=== PATIENT | male | born 1950 | race Caucasian/White ===

== ENCOUNTER 2016-07-07 | Outpatient (CLI) | payer MEDICARE, OTHER | END 2016-07-07 19:05 | disposition short-term general hospital (02) | DX: R33.9 Retention of urine, unspecified (principal) | CPT/HCPCS: A0425; A0428 ==

== ENCOUNTER 2016-07-07 16:04 | Emergency (ER) | payer MEDICARE, OTHER ==
[2016-07-07] MEDS ORDERED: LIDOCAINE 2% URO-JET 5 ML SYRINGE UR ONE ×2 (17:08→17:20)
[2016-07-07] MEDS ORDERED: LIDOCAINE 2% URO-JET 5 ML SYRINGE UR STA (17:19)
== END 2016-07-07 19:03 | disposition short-term general hospital (02) ==
DX: R33.9 Retention of urine, unspecified (principal); C61 Malignant neoplasm of prostate; I10 Essential (primary) hypertension

== ENCOUNTER 2019-11-12 23:27 | Outpatient (CLI) | payer MEDICARE, OTHER | END 2019-11-12 23:59 | disposition critical access hospital (66) | LOC: EMS 23:27 | PROVIDERS: ATTEND Surgery | DX: R42 Dizziness and giddiness (principal); R03.1 Nonspecific low blood-pressure reading | CPT/HCPCS: A0425; A0427 ==

== ENCOUNTER 2020-01-17 18:44 | Inpatient (IN) | payer MEDICARE, OTHER ==
[2020-01-17] MEDS ORDERED: SODIUM CHLORIDE 0.9% 1,000 ML IV STA ×2 (19:12)
[2020-01-17] MEDS ORDERED: DILTIAZEM 50 MG/10 ML VIAL IVP STA (19:12)
[2020-01-17 19:24] LABS: BASOPHILS % (AUTO) 0.8 %; HGB - HEMOGLOBIN 10.3 g/dL (14.0-18.0); LYMPHOCYTES # (AUTO) 0.6 10^3/uL (1.5-3.5); LYMPHOCYTES % (AUTO) 17.1 %; MEAN CORPUSCULAR HEMOGLOBIN 30.5 pg (27.0-31.0); MEAN CORPUSCULAR VOLUME 95.3 fL (80.0-94.0); MEAN PLATELET VOLUME 10.9 fL (7.4-11.4); MONOCYTES # (AUTO) 0.3 10^3/uL (0.0-1.0); MONOCYTES % (AUTO) 6.8 %; NEUTROPHILS # (AUTO) 1.8 10^3/uL (1.5-6.6); PLT - PLATELET COUNT 140 10^3/uL (130-450); RED BLOOD COUNT 3.38 10^6/uL (4.70-6.10); RED CELL DISTRIBUTION WIDTH 15.9 % (12.0-15.0); WHITE BLOOD COUNT 3.7 x10^3/uL (4.8-10.8)
[2020-01-17 19:30] LABS: INR 1.5 (0.8-1.2); PT - PROTHROMBIN TIME 16.2 secs (9.9-12.6)
[2020-01-17 19:39] LABS: ALBUMIN/GLOBULIN RATIO 1.2 (1.0-2.2); BILIRUBIN,TOTAL 0.5 mg/dL (0.2-1.0); CALCIUM 8.2 mg/dL (8.5-10.3); CREATININE 1.6 mg/dL (0.6-1.2); TOTAL PROTEIN 5.5 g/dL (6.7-8.2)
[2020-01-17] MEDS ORDERED: DILTIAZEM 125 MG in DEXTROSE 5% 100 ML IV STA (19:44)
--- NOTE | 2020-01-17 19:51 | ED Physician Documentation ---
History of Present Illness - Stated complaint Stated Complaint: LOW HEART RATE - Chief complaint Chief Complaint: Neuro - History obtained from History obtained from: Patient, Family - History of Present Illness Timing: Today Pain level max: 0 Pain level now: 0 - Additonal information Additional information: 69-year-old male presents the emergency department complaining of low blood pressure at home today. Also felt his heartbeat was fast. He has been told he has an irregular heartbeat in the past. He is currently undergoing chemotherapy for metastatic prostate cancer. He gets regular saline infusions for dehydration. No chest pain. No difficulty breathing. He was hypoxic upon initial presentation. No cough. No fever. Nothing makes it better or worse. His oncology care is at [facility]. Dr. Cuevas Review of Systems Ten Systems: 10 systems reviewed and negative Constitutional: denies: Fever, Chills Ears: denies: Ear pain Nose: denies: Rhinorrhea / runny nose, Congestion Respiratory: denies: Cough GI: denies: Abdominal Pain, Nausea, Vomiting, Diarrhea Skin: denies: Rash Musculoskeletal: denies: Neck pain, Back pain Neurologic: denies: Focal weakness, Numbness, Headache PD PAST MEDICAL HISTORY - Past Medical History Past Medical History: Yes Cardiovascular: Hypertension Psych: Depression Musculoskeletal: Osteoarthritis Other Past Medical History: Prostate - Past Surgical History Past Surgical History: Yes - Present Medications Home Medications: Ambulatory Orders Medication Instructions Recorded Confirmed amLODIPine [Norvasc] 1 tab DAILY 07/07/16 11/13/19 buPROPion HCL [Bupropion HCl Sr] 1 tab BID 07/07/16 11/13/19 Alpha Lipoic Acid 1 tab DAILY 11/12/19 11/13/19 Aspirin [Adult Aspirin Regimen] 1 tab DAILY 11/12/19 11/13/19 B-Complex with Vitamin C [Super B 1 tab DAILY 11/12/19 11/13/19 Complex-Vitamin C] Cholecalciferol (Vitamin D3) 1 tab DAILY 11/12/19 11/13/19 [Vitamin D3] DULoxetine [Cymbalta] 1 tab BID 11/12/19 11/13/19 LORazepam [Ativan] 1 tab Q6HR PRN 11/12/19 11/13/19 Multivit-Min/FA/Lycopen/Lutein 1 tab DAILY 11/12/19 11/13/19 [Centrum Silver Men Tablet] Prednisone 1 tab PO DAILY 11/12/19 11/13/19 carvediloL [Coreg] 1 tab BID 11/12/19 11/13/19 dexAMETHasone [Dexamethasone] 2 tab BID 11/12/19 11/13/19 - Allergies Allergies/Adverse Reactions: Allergies Allergy/AdvReac Type Severity Reaction Status Date / Time Penicillins Allergy Rash Verified 01/17/20 18:59 oxycodone HCl * AdvReac Dizziness Verified 01/17/20 18:59 [From OxyContin] - Social History Does the pt smoke?: No Smoking Status: Never smoker PD ED PE NORMAL - Vitals Vital signs reviewed: Yes - General General: Alert and oriented X 3, No acute distress - HEENT HEENT: PERRL, Moist mucous membranes - Neck Neck: Supple, no meningeal sign - Cardiac Cardiac: Other (Tachycardic) - Respiratory Respiratory: No respiratory distress, Clear bilaterally - Abdomen Abdomen: Soft, Non tender, Non distended - Derm Derm: Warm and dry, No rash - Extremities Extremities: No calf tenderness / cord - Neuro Neuro: Alert and oriented X 3 Results - Vitals Vitals: Vital Signs - 24 hr 01/17/20 01/17/20 01/17/20 18:54 19:24 19:26 Temperature 36.2 C L Heart Rate 178 H 150 H Respiratory 20 13 Rate Blood Pressure 101/66 111/77 103/77 O2 Saturation 88 L 100 01/17/20 01/17/20 01/17/20 19:35 20:13 20:30 Temperature Heart Rate 152 H 153 H 165 H Respiratory 25 H 24 Rate Blood Pressure 113/76 123/86 H 112/86 H O2 Saturation 100 100 100 Oxygen O2 Source Nasal cannula - EKG (time done) 1845 Rate: Rate (enter#) (178) Rhythm: Atrial fibrillation (RVR) QRS: Normal Ischemia: Normal ST segments, Q waves (III, aVF) - Labs Labs: Laboratory Tests 01/17/20 01/17/20 01/17/20 19:15 19:15 19:15 WBC 3.7 L RBC 3.38 L Hgb 10.3 L Hct 32.2 L MCV 95.3 H MCH 30.5 MCHC 32.0 RDW 15.9 H Plt Count 140 MPV 10.9 Neut # (Auto) 1.8 Lymph # (Auto) 0.6 L [place] # (Auto) 0.3 Eos # (Auto) 0.0 Baso # (Auto) 0.0 Absolute Nucleated RBC 0.03 Band Neuts % (Manual) Not Reportable Abnorm Lymph % (Manual) Not Reportable Nucleated RBC % 0.8 Neutrophils # (Manual) Not Reportable Lymphocytes # (Manual) Not Reportable Monocytes # (Manual) Not Reportable Eosinophils # (Manual) Not Reportable Basophils # (Manual) Not Reportable Differential Comment MANUAL=AUTO DIFF Manual Slide Review Indicated WBC Morphology 2+AGRANULAR/HYPOGRAN Platelet Estimate NORMAL (130-450,000) Platelet Morphology NORMAL APPEARANCE RBC Morph Micro Appear 1+ HELMET CELLS PT 16.2 H INR 1.5 H Sodium 136 Potassium 4.1 Chloride 103 Carbon Dioxide 23 Anion Gap 10.0 BUN 21 H Creatinine 1.6 H Estimated GFR (MDRD) 43 L Glucose 108 H Calcium 8.2 L Total Bilirubin 0.5 AST 27 ALT 28 Alkaline Phosphatase 55 B-Natriuretic Peptide Total Protein 5.5 L Albumin 3.0 L Globulin 2.5 Albumin/Globulin Ratio 1.2 Lipase 21 L 01/16/20 19:15 WBC RBC Hgb Hct MCV MCH MCHC RDW Plt Count MPV Neut # (Auto) Lymph # (Auto) [place] # (Auto) Eos # (Auto) Baso # (Auto) Absolute Nucleated RBC Band Neuts % (Manual) Abnorm Lymph % (Manual) Nucleated RBC % Neutrophils # (Manual) Lymphocytes # (Manual) Monocytes # (Manual) Eosinophils # (Manual) Basophils # (Manual) Differential Comment Manual Slide Review WBC Morphology Platelet Estimate Platelet Morphology RBC Morph Micro Appear PT INR Sodium Potassium Chloride Carbon Dioxide Anion Gap BUN Creatinine Estimated GFR (MDRD) Glucose Calcium Total Bilirubin AST ALT Alkaline Phosphatase B-Natriuretic Peptide 662 H Total Protein Albumin Globulin Albumin/Globulin Ratio Lipase - Rads (name of study) Chest x-ray Radiology: Prelim report reviewed, EMP read contemporaneously, See rad report (Mild cardiomegaly is seen with prominence of the central pulmonary vasculature. ) PD MEDICAL DECISION MAKING - ED course Complexity details: reviewed results, re-evaluated patient, considered differential, d/w patient, d/w family ED course: Patient with atrial fibrillation with rapid ventricular response. He was given Cardizem which did decrease his rate, the rate then increased again, placed on a diltiazem drip. No chest pain. No shortness of breath. Does appear to have likely congestive heart failure on chest x-ray with pulmonary edema. BNP was sent. Records from [facility] were requested. Patient will need admission for acute renal failure, CHF with pulmonary edema and atrial fibrillation with rapid ventricular response on a diltiazem drip. Discussed the case with Dr. Anders, hospitalist who accepts. This document was made in part using voice recognition software. While efforts are made to proofread this document, sound alike and grammatical errors may occur. Departure - Departure Disposition: 66 [facility] DC/Xfer Clinical Impression: Atrial fibrillation with rapid ventricular response, Acute renal insufficiency, Prostate cancer metastatic to bone, Hypoxia Pulmonary edema Qualifiers: Chronicity: acute Qualified Code(s): J81.0 - Acute pulmonary edema Congestive heart failure Qualifiers: Heart failure type: unspecified Heart failure chronicity: unspecified Qualified Code(s): I50.9 - Heart failure, unspecified Condition: Stable
[2020-01-17] MEDS ORDERED: DILTIAZEM 50 MG/10 ML VIAL ONE (19:57)
--- NOTE | 2020-01-17 20:11 | XRAY Report ---
PROCEDURE: Chest 1 View X-Ray INDICATIONS: hypoxia TECHNIQUE: One view of the chest was acquired. COMPARISON: No previous study is available for comparison. FINDINGS: Surgical changes and devices: A right chest wall Port-A-Cath is seen with tip projecting over the sup erior vena cava.. Lungs and pleura: No pleural effusions or pneumothorax. There is mild prominence of the central pulm onary vasculature. No focal pulmonary consolidation is seen. Mediastinum: Mediastinal contours appear normal. Heart size mildly enlarged. Bones and chest wall: No suspicious bony lesions. Overlying soft tissues appear unremarkable. IMPRESSION: Mild cardiomegaly is seen with prominence of the central pulmonary vasculature. Reviewed by: Joseph Acevedo MD on 01/17/2020 8:10 PM PDT Approved by: Joseph Acevedo MD on 01/17/2020 8:10 PM PDT Station ID: [id number]
[2020-01-17] MEDS ORDERED: ACETAMINOPHEN 325 MG TABLET PO PRN (20:17)
--- NOTE | 2020-01-17 20:26 | HISTORY & PHYSICAL EXAMINATION ---
Chief Complaint - Chief Complaint Chief Complaint: weakness and dizziness History of Present Illness - Admitted From Admitted From:: [facility] ED - History Obtained From Records Reviewed: yes History obtained from: patient and ED physician - History of Present Illness HPI Comment/Other: Patient is a 69-year-old male with history of metastatic prostate cancer status post surgery and currently on chemotherapy with cabazitaxel at [facility]. His oncologist is Dr. Cuevas. He presented to the ED today with complaint of feeling weak and dizzy. He normally experiences the symptoms after chemotherapy however it has persisted and become worse over the past few days so he asked his to bring him to the emergency room. He is frequently dehydrated and often goes to [facility] for IV hydration. He was scheduled to see his oncologist tomorrow January 18, 2020. In the ED he was found to have an irregularly irregular rhythm with a heart rate in the 150s. He was initially given a dose of IV diltiazem which improved his heart rate but then slowly increased back to the 150s. As a result he was started on diltiazem drip and presented for admission. On further questioning at bedside he denies chest pain, dyspnea, abdominal pain, nausea or vomiting. He was also found to have a temperature of 39 C and white blood cell count of 3.7. He does not have any wounds. However his arms are extensively covered with bruises. He has mild crackles in the left lung bases. His chest x-ray showed cardiomegaly. He denied increased urinary frequency or pain with urination. His BNP was 662. History - Past Medical History Cardiovascular: reports: Hypertension, Peripheral Vascular Disease : reports: Renal insuffiency, Kidney stones Psych: reports: Depression Musculoskeletal: reports: Osteoarthritis MRSA Hx?: No Other Past Medical History: Metastatic Prostate cancer, Hx of melanoma, Basal cell carcinomaObesity, Gout - Past Surgical History General: reports: Other (Umbilical hernia repair) HEENT: reports: Other (Deviated septum repair) Other past surgical history: Prostate surgery - Family & Social History Family History Comment/Other: His father from prostate cancer and Alzheimer's. His brother from throat cancer Living arrangement: At home Living Situation: With spouse/s.o. Social History Notes: He denies using tobacco, alcohol or illicit substances - POLST Patient has POLST: No POLST Status: Full Code Meds/Allgy - Home Medications Home Medications: Ambulatory Orders Medication Instructions Recorded Confirmed amLODIPine [Norvasc] 1 tab DAILY 07/07/16 11/13/19 buPROPion HCL [Bupropion HCl Sr] 1 tab BID 07/07/16 11/13/19 Alpha Lipoic Acid 1 tab DAILY 11/12/19 11/13/19 Aspirin [Adult Aspirin Regimen] 1 tab DAILY 11/12/19 11/13/19 B-Complex with Vitamin C [Super B 1 tab DAILY 11/12/19 11/13/19 Complex-Vitamin C] Cholecalciferol (Vitamin D3) 1 tab DAILY 11/12/19 11/13/19 [Vitamin D3] DULoxetine [Cymbalta] 1 tab BID 11/12/19 11/13/19 LORazepam [Ativan] 1 tab Q6HR PRN 11/12/19 11/13/19 Multivit-Min/FA/Lycopen/Lutein 1 tab DAILY 11/12/19 11/13/19 [Centrum Silver Men Tablet] Prednisone 1 tab PO DAILY 11/12/19 11/13/19 carvediloL [Coreg] 1 tab BID 11/12/19 11/13/19 dexAMETHasone [Dexamethasone] 2 tab BID 11/12/19 11/13/19 - Allergies Allergies/Adverse Reactions: Allergies Allergy/AdvReac Type Severity Reaction Status Date / Time Penicillins Allergy Rash Verified 01/17/20 18:59 oxycodone HCl * AdvReac Dizziness Verified 01/17/20 18:59 [From OxyContin] Review of Systems - Constitutional Constitutional: reports: Fatigue, Fever, Weakness. denies: Chills - Eyes Eyes: denies: Pain - Ears, Nose & Throat Ears, Nose & Throat: denies: Ear pain - Cardiovascular Cariovascular: reports: Irregular heart rate, Edema (+1). denies: Chest pain - Respiratory Respiratory: reports: Cough (dry cough), Other. denies: Wheezing, SOB at rest - Gastrointestinal Gastrointestinal: denies: Abdominal pain, Abdominal distention, Constipation, Diarrhea, Nausea, Vomiting - Musculoskeletal Musculoskeletal: reports: Back pain (chronic) - Integumentary Integumentary: reports: Other (Extensive bruises in his upper extremities.) - Neurological Neurological: reports: General weakness, Dizziness. denies: Focal weakness, Headache - Psychiatric Psychiatric: reports: Depression - Endocrine Endocrine: denies: Polyuria, Polydypsia - Hematologic/Lymphatic Hematologic/Lymphatic: reports: Bruising. denies: Anemia Prior Level of Functionality: He is independent of activities of daily living. He uses a cane, walker or walks unaided depending on his strength on any given day. Exam - Vital Signs Vital Signs: Vital Signs x48h Temp Pulse Resp BP Pulse Ox 01/17/20 20:13 153 H 25 H 123/86 H 100 01/17/20 19:35 152 H 113/76 100 01/17/20 19:26 103/77 01/17/20 19:24 150 H 13 111/77 100 01/17/20 18:54 36.2 C L 178 H 20 101/66 88 L - Physical Exam General Appearance: positive: No acute distress, Alert Eyes Bilateral: positive: PERRL, EOMI ENT: positive: Dry mucous membranes Neck: positive: No JVD, Trachea midline Respiratory: positive: Chest non-tender, No respiratory distress, Other ( Crackles heard on left lung base) Cardiovascular: positive: No murmur, Irregularly irregular, Tachycardia Abdomen: positive: Non-tender, No organomegaly, Nml bowel sounds, No distention. negative: Guarding, Rebound Back: positive: Nml inspection Skin: positive: Pallor, Other (Extensive bruising on upper extremity) Extremities: positive: Non-tender, Pedal edema (+1) Neurologic/Psychiatric: positive: Oriented x3, Mood/affect nml Conclusion/Plan - Problem List (1) Atrial fibrillation with rapid ventricular response Conclusion/Plan: New onset. Etiology undetermined. However cannot rule out infection. Patient has history of neutropenic fever with Streptococcus viridans bacteremia from October 02, 2019 through October 21, 2019 Patient underwent a TTE on October 04, 2019. It showed a normal left ventricle size and wall thickness. Ejection fraction was estimated to be 60 to 65%. There was a significant dyssynchronous contraction pattern. The right ventricle size and function was normal. A BIJU was recommended if there was clinical suspicion of endocarditis. A BIJU was done on October 07, 2019. There was no vegetation seen. Blood cultures drawn. UA pending. Patient's BNP was 662. 2D echo ordered for the morning. Initial troponin was normal. Will trend X2 more. TSH was normal. Patient is currently on diltiazem drip. Will titrate to effect. Will administer metoprolol 5mg IV and repeat as needed for for pulse > 130 Patient was given 1 L fluid bolus in the ED. Will stop IV fluids and administer lasix 20mg IV X1 Patient's Trace vas score is 2. The patient is on aspirin. (2) Prostate cancer metastatic to bone Conclusion/Plan: Patient is on chemotherapy Cabazitaxel and denosumab. His oncologist is Dr. Sheeba Cuevas at [facility]. He was scheduled to follow-up with them tomorrow January 18, 2020 however the appointment will have to be postponed since he is admitted at [facility] today. (3) Congestive heart failure Conclusion/Plan: Patient has crackles in the left lung bases. Chest x-ray showed cardiomegaly. Patient's BMP is 662. We will stop IV fluids and administer Lasix 20 mg IV x1. Patient underwent a TTE on October 04, 2019. It showed a normal left ventricle size and wall thickness. Ejection fraction was estimated to be 60 to 65%. There was a significant dyss ynchronous contraction pattern. The right ventricle size and function was normal. A BIJU was recommended if there was clinical suspicion of endocarditis. A BIJU was done on October 07, 2019. There was no vegetation seen. Qualifiers: Heart failure type: unspecified Heart failure chronicity: unspecified Qualified Code(s): I50.9 - Heart failure, unspecified (4) Acute renal insufficiency Conclusion/Plan: Patient's creatinine on January 04, 2020 was 0.88. This could be related to patient's heart failure. Patient also had history of an obstructing renal calculus Lasix 20 mg IV is being administered. We will monitor renal function with BMP in the morning. (5) Depression Conclusion/Plan: On bupropion and Cymbalta - Lab Results Fish Bones: 01/17/20 19:15 01/17/20 19:15 Core Measures - Anticipated LOS I expect patient to be DC'd or transferred within 96 hours.: Yes - DVT/VTE - Prophylaxis VTE/DVT Device ordered at admit?: Yes VTE/DVT Prophylaxis med ordered at admit?: No
[2020-01-17 20:27] LABS: DIFFERENTIAL COMMENT MANUAL=AUTO DIFF; PLATELET ESTIMATE, MANUAL NORMAL (130-450,000) (NORMAL); PLATELET MORPHOLOGY NORMAL APPEARANCE (NORMAL); RBC MORPHOLOGY (MULTIPLE) 1+ HELMET CELLS (NORMAL)
[2020-01-17] MEDS: DILTIAZEM 125 MG in DEXTROSE 5% 100 ML IV SCH (21:04)
[2020-01-17] MEDS: SODIUM CHLORIDE FLUSH 0.9% 10 ML SYRINGE IVP SCH (21:28)
[2020-01-17] MEDS ORDERED: SODIUM CHLORIDE 0.9% 1,000 ML IV SCH (22:00)
[2020-01-17] MEDS ORDERED: FUROSEMIDE 20 MG/2 ML VIAL IVP STA (22:40)
[2020-01-17] MEDS: SODIUM CHLORIDE FLUSH 0.9% 10 ML SYRINGE IVP PRN (22:54)
[2020-01-17] MEDS ORDERED: FUROSEMIDE 20 MG/2 ML VIAL IVP ONE (22:57)
[2020-01-17] MEDS ORDERED: METOPROLOL 5 MG/5 ML VIAL IVP ONE (22:57)
[2020-01-17] MEDS ORDERED: carvediloL 3.125 MG TABLET PO SCH (23:00)
[2020-01-18] MEDS ORDERED: METOPROLOL 5 MG/5 ML VIAL IVP PRN (00:09)
[2020-01-18 01:44] LABS: BILIRUBIN,URINE NEGATIVE (NEGATIVE); CLARITY,URINE CLEAR (CLEAR); GLUCOSE, URINE (UA) NEGATIVE (NEGATIVE); KETONES,URINE (UA) NEGATIVE (NEGATIVE); LEUKOCYTE ESTERASE, URINE NEGATIVE (NEGATIVE); NITRITE,URINE NEGATIVE (NEGATIVE); OCCULT BLOOD,URINE NEGATIVE (NEGATIVE); PROTEIN,URINE NEGATIVE (NEGATIVE); UROBILINOGEN,URINE 0.2 (NORMAL) E.U./dL (NORMAL)
[2020-01-18 01:51] LABS: RBC,URINE None Seen /HPF (0-5)
[2020-01-18 01:52] LABS: BACTERIA,URINE Rare /HPF (None Seen); CASTS, URINE 0-2 Hyaline Casts /LPF; SQUAMOUS EPITHELIAL CELL,UR NONE SEEN (<= Few)
[2020-01-18] MEDS: DILTIAZEM 125 MG in DEXTROSE 5% 100 ML IV SCH ×3 (03:23→19:46)
[2020-01-18 03:43] LABS: BASOPHILS % (AUTO) 0.7 %; HGB - HEMOGLOBIN 9.5 g/dL (14.0-18.0); LYMPHOCYTES # (AUTO) 0.7 10^3/uL (1.5-3.5); LYMPHOCYTES % (AUTO) 16.2 %; MEAN CORPUSCULAR HEMOGLOBIN 30.6 pg (27.0-31.0); MEAN CORPUSCULAR HGB CONC 32.3 g/dL (32.0-36.0); MEAN CORPUSCULAR VOLUME 94.8 fL (80.0-94.0); MEAN PLATELET VOLUME 10.4 fL (7.4-11.4); MONOCYTES # (AUTO) 0.2 10^3/uL (0.0-1.0); MONOCYTES % (AUTO) 5.4 %; NEUTROPHILS # (AUTO) 2.3 10^3/uL (1.5-6.6); NEUTROPHILS % (AUTO) 52.2 %; PLT - PLATELET COUNT 118 10^3/uL (130-450); RED CELL DISTRIBUTION WIDTH 15.9 % (12.0-15.0); WHITE BLOOD COUNT 4.4 x10^3/uL (4.8-10.8)
[2020-01-18 03:48] LABS: CALCIUM 7.6 mg/dL (8.5-10.3); CREATININE 1.5 mg/dL (0.6-1.2)
[2020-01-18 04:01] LABS: PLATELET ESTIMATE, MANUAL DECREASED (<130,000) (NORMAL); PLATELET MORPHOLOGY NORMAL APPEARANCE (NORMAL); RBC MORPHOLOGY (MULTIPLE) 1+ SCHISTOCYTES (NORMAL)
[2020-01-18 04:37] LABS: VBG PH 7.339 (7.31-7.41)
[2020-01-18 04:48] LABS: MAGNESIUM 1.5 mg/dL (1.7-2.8); PHOSPHORUS 4.1 mg/dL (2.5-4.6)
[2020-01-18] MEDS: MAGNESIUM OXIDE 400 MG TABLET PO SCH ×2 (06:55→13:29)
[2020-01-18] MEDS: SODIUM CHLORIDE FLUSH 0.9% 10 ML SYRINGE IVP PRN (06:55)
[2020-01-18] MEDS: PANTOPRAZOLE 40 MG VIAL IVP SCH (06:55)
[2020-01-18] MEDS: SODIUM CHLORIDE FLUSH 0.9% 10 ML SYRINGE IVP SCH ×2 (08:27→17:25)
[2020-01-18] MEDS ORDERED: POTASSIUM CHLORIDE 20 MEQ TABLET PO ONE (09:00)
--- NOTE | 2020-01-18 10:54 | PHARMACY PROGRESS NOTE ---
- Best Possible Medication History Admit Date and Time: 01/17/202016 Processed by: Pharmacy Medication History completed: Yes Patient Interview: Completed Secondary Source(s): Pharmacy records, Insurance records (PATIENT INTERVIEWED BY YOUTH CARE SPECIALIST. PATIENT ABLE TO CONFIRM HOME MEDICATIONS ) As the person ultimately responsible for medication therapy, providers are able to order a medication from an existing home medication list in [facility] via the "Reconcile Routine" prior to Confirmation of that medication by credit support counselor. Such practice is discouraged except when the physician, in their clinical judgment, deems that a medical need exists for a medication without regard to previous use.
--- NOTE | 2020-01-18 19:04 | PROVIDER PROGRESS NOTE ---
Assessment/Plan - Problem List (1) Gram-positive bacteremia Assessment/Plan: Blood cultures have turned positive for Gram positive bacteremia. He is on empiric iv Vanco that would cover this. The concern is that he had strep viridans in October 2019, no source was found, BIJU was negative for vegetations, he finished just 2 weeks of IV antibiotics for that. Await identification and sensitivity results. If he grows Strep viridans again, plan would be transfer to [facility] where he was treated for this several months ago. I told the pt and he agrees with this plan. (2) Hypotension Assessment/Plan: He is still hypovolemic, ruling out septic. Continue BP stabilization with crysalloids iv slowly due to new findings of cardiomyopathy (EF 35% by Echo here, had EF 60% by Echo in October 2019 at [facility]). Rate control will also help the BP improve. (3) Atrial fibrillation with rapid ventricular response Assessment/Plan: This is new onset Afib. Continue meds for rate control: currently iv Dilt drip. Determining stroke prevention treatment may need reaching out to his Oncololgist. (4) Congestive heart failure Qualifiers: Heart failure type: systolic Heart failure chronicity: acute Qualified Code(s): I50.21 - Acute systolic (congestive) heart failure Assessment/Plan: Last Echo was done at [facility] in October, it showed normal LVEF of 60%. Echo done today, ordered to evaluate for endocarditis, shows EF of 35 to 40%. His troponins were negative, he ruled out for an [place]. 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 Continue with beta-blockers, careful IV fluid rehydration for his MIKHAIL and hypovolemia, follow I's and O's. (5) Prostate cancer metastatic to bone Assessment/Plan: As per Hx. (6) Anemia Qualifiers: Anemia type: other cause Other causes of anemia: antineoplastic chemotherapy Qualified Code(s): D64.81 - Anemia due to antineoplastic chemotherapy; T45.1X5A - Adverse effect of antineoplastic and immunosuppressive drugs, initial encounter Assessment/Plan: Related to his cancer and his chemo. Follow CBC daily. Transfuse if < 7 or if SOB when Hgb <8. - Current Meds Current Meds: Current Medications Generic Name Dose Route Start Last Admin Trade Name Freq PRN Reason Stop Dose Admin Acetaminophen 650 mg 01/17/20 20:17 01/17/20 22:01 Tylenol PO 650 mg Q6HR PRN Administration Pain 1 to 4 Diltiazem HCl 125 mg/ Dextrose 125 mls @ 5 mls/hr 01/18/20 11:00 01/18/20 11:06 IV 15 mg/hr .Q25H CROW 15 mls/hr Administration Protocol 5 MG/HR Metoprolol Tartrate 5 mg 01/18/20 00:09 01/17/20 23:00 Lopressor Inj IVP 5 mg Q6H PRN Administration PER PHYSICIAN ORDER Pantoprazole Sodium 40 mg 01/18/20 07:00 01/18/20 06:55 Protonix IVP 40 mg QDAC CROW Administration Sodium Chloride 10 ml 01/18/20 01:00 01/18/20 17:25 Normal Saline Flush 0.9% IVP 10 ml [id number],[id number],1700 CROW Administration Sodium Chloride 10 ml 01/17/20 20:17 01/18/20 06:55 Normal Saline Flush 0.9% IVP 10 ml PRN PRN Administration NEEDED PER PROVIDER ORDERS - Lab Result Fish Bone Diagrams: 01/20/20 05:20 01/20/20 05:20 - Additional Planning My Orders: My Active Orders 01/19/20 09:00 polyethylene glycoL 3350 [Miralax] 17 gm PO DAILY Subjective - Subjective Patient Reports: Resting Comfortably, Fatigue (Feels very weak) Objective Vital Signs: Vital Signs - 24 hr 01/17/20 01/17/20 01/17/20 19:24 19:26 19:35 Temperature Heart Rate 150 H 152 H Heart Rate [ Monitoring electrodes] Respiratory 13 Rate Blood Pressure 111/77 103/77 113/76 Blood Pressure [Left Brachial artery] O2 Saturation 100 100 01/17/20 01/17/20 01/17/20 20:13 20:30 20:38 Temperature 37.8 C H Heart Rate 153 H 165 H Heart Rate [ Monitoring electrodes] Respiratory 25 H 24 Rate Blood Pressure 123/86 H 112/86 H Blood Pressure [Left Brachial artery] O2 Saturation 100 100 01/17/20 01/17/20 01/17/20 20:42 21:00 21:15 Temperature Heart Rate 145 H Heart Rate [ 143 H 149 H Monitoring electrodes] Respiratory 20 25 H 21 Rate Blood Pressure 118/97 H Blood Pressure 106/71 99/66 [Left Brachial artery] O2 Saturation 100 100 97 01/17/20 01/17/20 01/17/20 21:20 21:25 21:30 Temperature Heart Rate Heart Rate [ 142 H 145 H 140 H Monitoring electrodes] Respiratory 15 21 16 Rate Blood Pressure Blood Pressure 88/68 L 89/56 L 107/72 [Left Brachial artery] O2 Saturation 93 94 96 01/17/20 01/17/20 01/17/20 21:33 21:35 21:40 Temperature Heart Rate Heart Rate [ 136 H 143 H 144 H Monitoring electrodes] Respiratory 24 21 15 Rate Blood Pressure Blood Pressure 107/72 101/69 98/66 [Left Brachial artery] O2 Saturation 96 95 96 01/17/20 01/17/20 01/17/20 21:45 21:50 22:00 Temperature Heart Rate Heart Rate [ 140 H 135 H 141 H Monitoring electrodes] Respiratory 17 17 9 L Rate Blood Pressure Blood Pressure 94/67 111/66 107/75 [Left Brachial artery] O2 Saturation 95 95 95 01/17/20 01/17/20 01/17/20 22:02 22:15 22:30 Temperature 38.2 C H 37.1 C Heart Rate Heart Rate [ 134 H 143 H Monitoring electrodes] Respiratory 15 23 Rate Blood Pressure Blood Pressure 110/69 104/70 [Left Brachial artery] O2 Saturation 93 92 01/17/20 01/17/20 01/17/20 22:45 23:00 23:13 Temperature Heart Rate Heart Rate [ 101 H 105 H 121 H Monitoring electrodes] Respiratory 17 14 Rate Blood Pressure 104/72 Blood Pressure 108/68 104/72 102/62 [Left Brachial artery] O2 Saturation 92 95 01/17/20 01/17/20 01/17/20 23:15 23:20 23:30 Temperature Heart Rate Heart Rate [ 124 H 123 H Monitoring electrodes] Respiratory Rate Blood Pressure 98/68 Blood Pressure 102/64 102/72 [Left Brachial artery] O2 Saturation 01/17/20 01/17/20 01/18/20 23:35 23:50 00:00 Temperature Heart Rate Heart Rate [ 140 H 105 H 123 H Monitoring electrodes] Respiratory Rate Blood Pressure Blood Pressure 98/68 99/68 105/80 [Left Brachial artery] O2 Saturation 95 01/18/20 01/18/20 01/18/20 00:15 00:30 00:40 Temperature 36.6 C Heart Rate Heart Rate [ 128 H 120 H Monitoring electrodes] Respiratory Rate Blood Pressure Blood Pressure 102/59 L 111/61 [Left Brachial artery] O2 Saturation 01/18/20 01/18/20 01/18/20 01:00 02:00 03:00 Temperature 36.6 C Heart Rate Heart Rate [ 114 H 133 H 87 Monitoring electrodes] Respiratory 18 18 16 Rate Blood Pressure Blood Pressure 95/71 101/67 93/62 [Left Brachial artery] O2 Saturation 97 98 96 01/18/20 01/18/20 01/18/20 04:00 05:00 06:00 Temperature Heart Rate Heart Rate [ 105 H 90 108 H Monitoring electrodes] Respiratory 21 20 18 Rate Blood Pressure Blood Pressure 101/70 103/73 107/66 [Left Brachial artery] O2 Saturation 95 100 99 01/18/20 01/18/20 01/18/20 07:00 08:00 09:00 Temperature 37.2 C Heart Rate Heart Rate [ 106 H 104 H 114 H Monitoring electrodes] Respiratory 14 19 16 Rate Blood Pressure Blood Pressure 107/53 L 98/54 L 93/69 [Left Brachial artery] O2 Saturation 93 98 93 01/18/20 01/18/20 01/18/20 10:00 11:00 12:00 Temperature 37.1 C Heart Rate Heart Rate [ 86 92 108 H Monitoring electrodes] Respiratory 14 14 14 Rate Blood Pressure Blood Pressure 85/56 L 101/57 L 107/69 [Left Brachial artery] O2 Saturation 97 99 96 01/18/20 01/18/20 01/18/20 13:00 14:00 15:00 Temperature Heart Rate Heart Rate [ 104 H 106 H 108 H Monitoring electrodes] Respiratory 10 L 20 17 Rate Blood Pressure Blood Pressure 100/66 101/55 L 104/69 [Left Brachial artery] O2 Saturation 92 95 91 L 01/18/20 01/18/20 01/18/20 16:00 17:00 18:00 Temperature 36.5 C 37 C Heart Rate Heart Rate [ 102 H 106 H 115 H Monitoring electrodes] Respiratory 17 20 21 Rate Blood Pressure Blood Pressure 103/69 90/69 107/69 [Left Brachial artery] O2 Saturation 93 98 96 Oxygen O2 Source Nasal cannula I&O (Last 24 Hrs): Intake and Output Totals x24h 01/16/20 01/17/20 01/18/20 23:59 23:59 23:59 Intake Total 302.512 3641.5 Output Total 0 805 Balance 377.167 998.5 General: Alert, Oriented x3 HEENT: Mucous membr. moist/pink, Other (Pale) Neck: Supple Neuro: Alert, Non Focal Cardiovascular: No murmurs, Other (Irreg irreg) Respiratory: No respiratory distress Abdomen: Normal bowel sounds, Soft Extremities: No edema - Results Results: Laboratory Results WBC 4.4 x10^3/uL (4.8-10.8) L 01/18/20 03:20 RBC 3.10 10^6/uL (4.70-6.10) L 01/18/20 03:20 Hgb 9.5 g/dL (14.0-18.0) L 01/18/20 03:20 Hct 29.4 % (42.0-52.0) L 01/18/20 03:20 MCV 94.8 fL (80.0-94.0) H 01/18/20 03:20 MCH 30.6 pg (27.0-31.0) 01/18/20 03:20 MCHC 32.3 g/dL (32.0-36.0) 01/18/20 03:20 RDW 15.9 % (12.0-15.0) H 01/18/20 03:20 Plt Count 118 10^3/uL (130-450) L 01/18/20 03:20 MPV 10.4 fL (7.4-11.4) 01/18/20 03:20 Neut # (Auto) 2.3 10^3/uL (1.5-6.6) 01/18/20 03:20 Lymph # (Auto) 0.7 10^3/uL (1.5-3.5) L 01/18/20 03:20 [place] # (Auto) 0.2 10^3/uL (0.0-1.0) 01/18/20 03:20 Eos # (Auto) 0.0 10^3/uL (0.0-0.7) 01/18/20 03:20 Baso # (Auto) 0.0 10^3/uL (0.0-0.1) 01/18/20 03:20 Absolute Nucleated RBC 0.00 x10^3/uL 01/18/20 03:20 Band Neuts % (Manual) Not Reportable 01/17/20 19:15 Abnorm Lymph % (Manual) Not Reportable 01/17/20 19:15 Nucleated RBC % 0.0 /100WBC 01/18/20 03:20 Neutrophils # (Manual) Not Reportable 01/17/20 19:15 Lymphocytes # (Manual) Not Reportable 01/17/20 19:15 Monocytes # (Manual) Not Reportable 01/17/20 19:15 Eosinophils # (Manual) Not Reportable 01/17/20 19:15 Basophils # (Manual) Not Reportable 01/17/20 19:15 Differential Comment MANUAL=AUTO DIFF 01/17/20 19:15 Manual Slide Review Indicated 01/18/20 03:20 WBC Morphology 2+AGRANULAR/HYPOGRAN (NORMAL) 01/17/20 19:15 Platelet Estimate DECREASED (<130,000) (NORMAL) 01/18/20 03:20 Platelet Morphology NORMAL APPEARANCE (NORMAL) 01/18/20 03:20 RBC Morph Micro Appear 1+ SCHISTOCYTES (NORMAL) 01/18/20 03:20 PT 16.2 secs (9.9-12.6) H 01/17/20 19:15 INR 1.5 (0.8-1.2) H 01/17/20 19:15 VBG pH 7.339 (7.31-7.41) 01/18/20 03:20 Ionized Calcium 1.07 mmol/L (1.15-1.33) L 01/18/20 03:20 Sodium 138 mmol/L (135-145) 01/18/20 03:20 Potassium 3.5 mmol/L (3.5-5.0) 01/18/20 03:20 Chloride 103 mmol/L (101-111) 01/18/20 03:20 Carbon Dioxide 23 mmol/L (21-32) 01/18/20 03:20 Anion Gap 12.0 (6-13) 01/18/20 03:20 BUN 22 mg/dL (6-20) H 01/18/20 03:20 Creatinine 1.5 mg/dL (0.6-1.2) H 01/18/20 03:20 Estimated GFR (MDRD) 46 (>89) L 01/18/20 03:20 Glucose 100 mg/dL (70-100) 01/18/20 03:20 Lactic Acid 0.7 mmol/L (0.5-2.2) 01/17/20 22:00 Calcium 7.6 mg/dL (8.5-10.3) L 01/18/20 03:20 Phosphorus 4.1 mg/dL (2.5-4.6) 01/18/20 03:20 Magnesium 1.5 mg/dL (1.7-2.8) L 01/18/20 03:20 Total Bilirubin 0.5 mg/dL (0.2-1.0) 01/17/20 19:15 AST 27 IU/L (10-42) 01/17/20 19:15 ALT 28 IU/L (10-60) 01/17/20 19:15 Alkaline Phosphatase 55 IU/L (42-121) 01/17/20 19:15 Troponin I High Sens 14.3 ng/L (2.3-19.7) 01/18/20 08:23 B-Natriuretic Peptide 662 pg/mL (5-100) H 01/17/20 19:15 Total Protein 5.5 g/dL (6.7-8.2) L 01/17/20 19:15 Albumin 2.8 g/dL (3.2-5.5) L 01/18/20 03:25 Globulin 2.5 g/dL (2.1-4.2) 01/17/20 19:15 Albumin/Globulin Ratio 1.2 (1.0-2.2) 01/17/20 19:15 Lipase 21 U/L (22-51) L 01/17/20 19:15 TSH 2.48 uIU/mL (0.34-5.60) 01/17/20 20:32 Urine Color YELLOW 01/18/20 01:30 Urine Clarity CLEAR (CLEAR) 01/18/20 01:30 Urine pH 5.0 PH (5.0-7.5) 01/18/20 01:30 Ur Specific [place] 1.010 (1.002-1.030) 01/18/20 01:30 Urine Protein NEGATIVE mg/dL (NEGATIVE) 01/18/20 01:30 Urine Glucose (UA) NEGATIVE mg/dL (NEGATIVE) 01/18/20 01:30 Urine Ketones NEGATIVE mg/dL (NEGATIVE) 01/18/20 01:30 Urine Occult Blood NEGATIVE (NEGATIVE) 01/18/20 01:30 Urine Nitrite NEGATIVE (NEGATIVE) 01/18/20 01:30 Urine Bilirubin NEGATIVE (NEGATIVE) 01/18/20 01:30 Urine Urobilinogen 0.2 (NORMAL) E.U./dL (NORMAL) 01/18/20 01:30 Ur Leukocyte Esterase NEGATIVE (NEGATIVE) 01/18/20 01:30 Urine RBC None Seen /HPF (0-5) 01/18/20 01:30 Urine WBC 0-3 /HPF (0-3) 01/18/20 01:30 Ur Squamous Epith Cells NONE SEEN (<= Few) 01/18/20 01:30 Urine Bacteria Rare /HPF (None Seen) 01/18/20 01:30 Urine Casts 0-2 Hyaline Casts /LPF 01/18/20 01:30 Urine Culture Comments NOT INDICATED 01/18/20 01:30 Nasal Screen MRSA (PCR) NEGATIVE (NEGATIVE) 01/17/20 21:00
[2020-01-18] MEDS ORDERED: LORazepam 0.5 MG TABLET PO PRN (19:07)
[2020-01-18] MEDS ORDERED: NON FORMULARY MED (Oxycodone Hcl/Acetaminophen [Oxycodone-Acetaminophen 10-325] 1 TAB) PO PRN (19:07)
[2020-01-18] MEDS ORDERED: oxyCODONE 5 MG TABLET PO PRN (19:49)
[2020-01-18] MEDS ORDERED: VANCOMYCIN INJ 1.5 GM in SODIUM CHLORIDE 0.9% 500 ML IV ONE (21:00)
[2020-01-18] MEDS ORDERED: VANCOMYCIN INJ 1.25 GM in SODIUM CHLORIDE 0.9% 250 ML IV SCH (21:00)
[2020-01-18] MEDS: buPROPion SR 150 MG TABLET PO SCH (21:06)
[2020-01-18] MEDS: DULoxetine 30 MG CAPSULE PO SCH (21:06)
[2020-01-19] MEDS: SODIUM CHLORIDE FLUSH 0.9% 10 ML SYRINGE IVP SCH ×4 (02:08→17:31)
[2020-01-19] MEDS: DILTIAZEM 125 MG in DEXTROSE 5% 100 ML IV SCH (04:30)
[2020-01-19] MEDS: SODIUM CHLORIDE FLUSH 0.9% 10 ML SYRINGE IVP PRN ×3 (05:03→06:35)
[2020-01-19 05:36] LABS: VBG PH 7.355 (7.31-7.41)
[2020-01-19 05:37] LABS: BASOPHILS % (AUTO) 0.9 %; HGB - HEMOGLOBIN 9.1 g/dL (14.0-18.0); LYMPHOCYTES % (AUTO) 20.9 %; MEAN CORPUSCULAR HEMOGLOBIN 30.3 pg (27.0-31.0); MEAN CORPUSCULAR HGB CONC 32.4 g/dL (32.0-36.0); MEAN CORPUSCULAR VOLUME 93.7 fL (80.0-94.0); MEAN PLATELET VOLUME 10.5 fL (7.4-11.4); MONOCYTES % (AUTO) 5.7 %; NEUTROPHILS % (AUTO) 52.9 %; PLT - PLATELET COUNT 108 10^3/uL (130-450); RED CELL DISTRIBUTION WIDTH 15.8 % (12.0-15.0); WHITE BLOOD COUNT 4.6 x10^3/uL (4.8-10.8)
[2020-01-19 05:46] LABS: ALBUMIN 2.5 g/dL (3.2-5.5); CALCIUM 7.2 mg/dL (8.5-10.3); CREATININE 1.1 mg/dL (0.6-1.2); MAGNESIUM 1.5 mg/dL (1.7-2.8); PHOSPHORUS 2.7 mg/dL (2.5-4.6)
[2020-01-19 06:05] LABS: ABNORMAL LYMPHS % (MANUAL) 4 %; BAND NEUTROPHILS % (MANUAL) 5 %; LYMPHOCYTES # (MANUAL) 0.8 10^3/uL (1.5-3.5); LYMPHOCYTES % (MANUAL) 14 %; METAMYELOCYTES % (MANUAL) 3 %; MONOCYTES # (MANUAL) 0.3 10^3/uL (0.0-1.0); MYELOCYTES % (MANUAL) 4 %
[2020-01-19 06:07] LABS: PLATELET ESTIMATE, MANUAL DECREASED (<130,000) (NORMAL); PLATELET MORPHOLOGY NORMAL APPEARANCE (NORMAL); RBC MORPHOLOGY (MULTIPLE) 1+ ANISOCYTOSIS (NORMAL)
[2020-01-19 06:08] LABS: DIFFERENTIAL COMMENT MANUAL DIFFERENTIAL
[2020-01-19] MEDS: PANTOPRAZOLE 40 MG VIAL IVP SCH (06:34)
[2020-01-19] MEDS: MAGNESIUM OXIDE 400 MG TABLET PO SCH ×2 (08:16→14:14)
[2020-01-19] MEDS: ASPIRIN EC 81 MG TABLET PO SCH (09:00)
[2020-01-19] MEDS ORDERED: POTASSIUM CHLORIDE 20 MEQ TABLET PO ONE (09:00)
[2020-01-19] MEDS: DULoxetine 30 MG CAPSULE PO SCH ×2 (09:01→21:17)
[2020-01-19] MEDS: buPROPion SR 150 MG TABLET PO SCH ×2 (09:01→21:18)
[2020-01-19] MEDS ORDERED: DIGOXIN 500 MCG/2 ML AMP IVP STA (09:02)
[2020-01-19] MEDS: polyethylene glycoL 3350 17 GM PACKET PO SCH (09:03)
[2020-01-19] MEDS: CALCIUM CITRATE 250 MG TABLET PO SCH ×4 (09:04→21:18)
[2020-01-19] MEDS: METOPROLOL TARTRATE 25 MG TABLET PO SCH ×4 (10:05→22:54)
[2020-01-19] MEDS ORDERED: VANCOMYCIN INJ 2 GM in SODIUM CHLORIDE 0.9% 250 ML IV SCH (13:00)
[2020-01-19] MEDS: VANCOMYCIN INJ 2 GM in SODIUM CHLORIDE 0.9% 500 ML IV SCH (13:11)
--- NOTE | 2020-01-19 18:05 | PROVIDER PROGRESS NOTE ---
Assessment/Plan - Problem List (1) Gram-positive bacteremia Assessment/Plan: This is been identified by microbiology lab as a coag negative Staph, which is a skin contaminant. It is not the Streop viridans which he had 3 mos ago. We will stop his empiric vancomycin. (2) Hypotension Assessment/Plan: BP is still low "soft" but he is mentating. Will use Dig and B-vandana for rate control, tyo wean to off the Diltiazem drip. Continue iv fluid hydration carefully due to new cardiomyopathy by Echo. (3) Atrial fibrillation with rapid ventricular response Assessment/Plan: This is new onset Afib. Continue meds for rate control: currently iv Dilt drip is ordered to wean to off, start Dig plus B-blockers. Transfer out of ICU when BP stable and HR < 100, possibly tonight or tomorrow Determining stroke prevention treatment may need reaching out to his Oncololgist. (4) Congestive heart failure Qualifiers: Heart failure type: systolic Heart failure chronicity: acute Qualified Code(s): I50.21 - Acute systolic (congestive) heart failure Assessment/Plan: Last Echo was done at [facility] in October, it showed normal LVEF of 60%. Echo done today, ordered to evaluate for endocarditis, shows EF of 35 to 40%. His troponins were negative, he ruled out for an [place]. 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 Further new management of this will be needed as an outpt (stress testing and Echo follow-ups by a Auto Striper). Beta-blockers and Dig for rate control were chosen over Ca-vandana. Careful IV fluid rehydration for his MIKHAIL and hypovolemia, follow I's and O's. (5) Prostate cancer metastatic to bone Assessment/Plan: As per Hx. His Oncologist is at [facility]. (6) Anemia Qualifiers: Anemia type: other cause Other causes of anemia: antineoplastic chemotherapy Qualified Code(s): D64.81 - Anemia due to antineoplastic chemotherapy; T45.1X5A - Adverse effect of antineoplastic and immunosuppressive drugs, initial encounter Assessment/Plan: Due to his cancer and his chemo. Follow CBC daily, transfuse if <7 or if <8 and SOB. - Current Meds Current Meds: Current Medications Generic Name Dose Route Start Last Admin Trade Name Freq PRN Reason Stop Dose Admin Acetaminophen 650 mg 01/17/20 20:17 01/17/20 22:01 Tylenol PO 650 mg Q6HR PRN Administration Pain 1 to 4 Aspirin 81 mg 01/19/20 09:00 01/19/20 09:00 Ecotrin PO 81 mg DAILY CROW Administration Bupropion HCl 150 mg 01/18/20 21:00 01/19/20 09:01 Wellbutrin Sr PO 150 mg BID CROW Administration Calcium Citrate 500 mg 01/19/20 09:00 01/19/20 17:31 PO 01/19/20 21:01 500 mg QID CROW Administration Duloxetine HCl 30 mg 01/18/20 21:00 01/19/20 09:01 Cymbalta PO 30 mg BID CROW Administration Vancomycin HCl 2 gm/ Sodium 500 mls @ 250 mls/hr 01/19/20 13:00 01/19/20 15: 31 Chloride IV Infused Q18H CROW Infusion Metoprolol Tartrate 12.5 mg 01/19/20 15:00 01/19/20 15:48 Lopressor PO Not Given TID CROW Pantoprazole Sodium 40 mg 01/18/20 07:00 01/19/20 06:34 Protonix IVP 40 mg QDAC CROW Administration Polyethylene Glycol 17 gm 01/19/20 09:00 01/19/20 09:03 Miralax PO Not Given DAILY CROW Sodium Chloride 10 ml 01/18/20 01:00 01/19/20 17:31 Normal Saline Flush 0.9% IVP 10 ml 0100,0900,1700 CROW Administration Sodium Chloride 10 ml 01/17/20 20:17 01/19/20 05:03 Normal Saline Flush 0.9% IVP 10 ml PRN PRN Administration NEEDED PER PROVIDER ORDERS Sodium Chloride 20 ml 01/19/20 02:11 01/19/20 06:35 Normal Saline Flush 0.9% IVP 20 ml PRN PRN Administration After Blood Draw - Lab Result Fish Bone Diagrams: 01/20/20 05:20 01/20/20 05:20 - Additional Planning My Orders: My Active Orders 01/18/20 19:07 LORazepam [Ativan] 0.5 mg PO Q6HR PRN 01/18/20 21:00 DULoxetine [Cymbalta] 30 mg PO BID buPROPion [Wellbutrin Sr] 150 mg PO BID 01/19/20 09:00 Aspirin EC [Ecotrin] 81 mg PO DAILY polyethylene glycoL 3350 [Miralax] 17 gm PO DAILY 01/19/20 09:04 Miscellaenous Nursing Order [RC] ONCE 01/19/20 13:01 Telemetry- [RC] Q4HR 01/19/20 15:00 Metoprolol Tartrate [Lopressor] 12.5 mg PO TID Subjective - Subjective Patient Reports: Resting Comfortably, Fatigue (Less weak than yesterday) Objective Vital Signs: Vital Signs - 24 hr 01/18/20 01/18/20 01/18/20 19:00 20:00 21:00 Temperature 37.5 C 35.8 C L Heart Rate Heart Rate [ 123 H 114 H 106 H Monitoring electrodes] Respiratory 16 18 16 Rate Blood Pressure Blood Pressure 96/52 L 87/59 L 108/74 [Left Brachial artery] O2 Saturation 96 96 95 01/18/20 01/18/20 01/19/20 22:00 23:00 00:00 Temperature 35.8 C L Heart Rate Heart Rate [ 101 H 100 105 H Monitoring electrodes] Respiratory 18 17 19 Rate Blood Pressure Blood Pressure 103/68 100/71 101/69 [Left Brachial artery] O2 Saturation 96 96 99 01/19/20 01/19/20 01/19/20 01:00 02:00 03:00 Temperature Heart Rate Heart Rate [ 113 H 102 H 118 H Monitoring electrodes] Respiratory 20 16 14 Rate Blood Pressure Blood Pressure 100/62 94/64 113/71 [Left Brachial artery] O2 Saturation 98 96 95 01/19/20 01/19/20 01/19/20 04:00 05:00 06:00 Temperature Heart Rate Heart Rate [ 99 118 H 100 Monitoring electrodes] Respiratory 24 21 16 Rate Blood Pressure Blood Pressure 105/56 L 106/63 102/65 [Left Brachial artery] O2 Saturation 94 93 97 01/19/20 01/19/20 01/19/20 07:00 08:00 09:00 Temperature Heart Rate Heart Rate [ 114 H 100 104 H Monitoring electrodes] Respiratory 22 19 20 Rate Blood Pressure Blood Pressure 103/60 111/58 L 94/57 L [Left Brachial artery] O2 Saturation 94 95 93 01/19/20 01/19/20 01/19/20 09:15 10:00 10:05 Temperature Heart Rate 118 H Heart Rate [ 102 H Monitoring electrodes] Respiratory 18 Rate Blood Pressure 108/71 Blood Pressure 108/71 [Left Brachial artery] O2 Saturation 89 L 01/19/20 01/19/20 01/19/20 10:30 11:20 12:00 Temperature Heart Rate Heart Rate [ 90 97 92 Monitoring electrodes] Respiratory 19 Rate Blood Pressure Blood Pressure 97/53 L [Left Brachial artery] O2 Saturation 96 01/19/20 01/19/20 01/19/20 12:42 13:00 14:00 Temperature Heart Rate Heart Rate [ 85 76 97 Monitoring electrodes] Respiratory 16 20 Rate Blood Pressure Blood Pressure 88/52 L [Left Brachial artery] O2 Saturation 95 94 01/19/20 01/19/20 01/19/20 15:00 15:48 16:00 Temperature 36.8 C Heart Rate Heart Rate [ 96 92 Monitoring electrodes] Respiratory 19 16 Rate Blood Pressure 94/72 Blood Pressure 94/72 103/75 [Left Brachial artery] O2 Saturation 94 94 01/19/20 17:00 Temperature Heart Rate Heart Rate [ 93 Monitoring electrodes] Respiratory 20 Rate Blood Pressure Blood Pressure 95/59 L [Left Brachial artery] O2 Saturation 94 Oxygen O2 Source Room air I&O (Last 24 Hrs): Intake and Output Totals x24h 01/17/20 01/18/20 01/19/20 23:59 23:59 23:59 Intake Total 363.689 9727.5 1217.917 Output Total 0 805 700 Balance 943.968 5635.5 517.917 General: Alert, Oriented x3 HEENT: Mucous membr. moist/pink, Other (Pale) Neck: Supple, No JVD Neuro: Alert, Non Focal Cardiovascular: No murmurs, Other (Irreg irreg) Respiratory: No respiratory distress, Breath sounds nml Abdomen: Normal bowel sounds, Soft Extremities: No edema Skin: No rashes (Pale) - Results Results: Laboratory Results WBC 4.6 x10^3/uL (4.8-10.8) L 01/19/20 05:00 RBC 3.00 10^6/uL (4.70-6.10) L 01/19/20 05:00 Hgb 9.1 g/dL (14.0-18.0) L 01/19/20 05:00 Hct 28.1 % (42.0-52.0) L 01/19/20 05:00 MCV 93.7 fL (80.0-94.0) 01/19/20 05:00 MCH 30.3 pg (27.0-31.0) 01/19/20 05:00 MCHC 32.4 g/dL (32.0-36.0) 01/19/20 05:00 RDW 15.8 % (12.0-15.0) H 01/19/20 05:00 Plt Count 108 10^3/uL (130-450) L 01/19/20 05:00 MPV 10.5 fL (7.4-11.4) 01/19/20 05:00 Neut # (Auto) Not Reportable 01/19/20 05:00 Lymph # (Auto) Not Reportable 01/19/20 05:00 [place] # (Auto) Not Reportable 01/19/20 05:00 Eos # (Auto) Not Reportable 01/19/20 05:00 Baso # (Auto) Not Reportable 01/19/20 05:00 Absolute Nucleated RBC Not Reportable 01/19/20 05:00 Total Counted 100 01/19/20 05:00 Band Neuts % (Manual) 5 % (0-10) 01/19/20 05:00 Abnorm Lymph % (Manual) 4 % 01/19/20 05:00 Metamyelocytes % 3 % (-0) H 01/19/20 05:00 Myelocytes % 4 % (-0) H 01/19/20 05:00 Nucleated RBC % Not Reportable 01/19/20 05:00 Neutrophils # (Manual) 3.1 10^3/uL (1.5-6.6) 01/19/20 05:00 Lymphocytes # (Manual) 0.8 10^3/uL (1.5-3.5) L 01/19/20 05:00 Monocytes # (Manual) 0.3 10^3/uL (0.0-1.0) 01/19/20 05:00 Eosinophils # (Manual) 0.0 10^3/uL (0-0.7) 01/19/20 05:00 Basophils # (Manual) 0.0 10^3/uL (0-0.1) 01/19/20 05:00 Differential Comment MANUAL DIFFERENTIAL 01/19/20 05:00 Manual Slide Review Indicated 01/18/20 03:20 WBC Morphology NORMAL APPEARANCE (NORMAL) 01/19/20 05:00 Platelet Estimate DECREASED (<130,000) (NORMAL) 01/19/20 05:00 Platelet Morphology NORMAL APPEARANCE (NORMAL) 01/19/20 05:00 RBC Morph Micro Appear 1+ ANISOCYTOSIS (NORMAL) 01/19/20 05:00 PT 16.2 secs (9.9-12.6) H 01/17/20 19:15 INR 1.5 (0.8-1.2) H 01/17/20 19:15 VBG pH 7.355 (7.31-7.41) 01/19/20 05:00 Ionized Calcium 1.04 mmol/L (1.15-1.33) L 01/19/20 05:00 Sodium 138 mmol/L (135-145) 01/19/20 05:00 Potassium 3.2 mmol/L (3.5-5.0) L 01/19/20 05:00 Chloride 105 mmol/L (101-111) 01/19/20 05:00 Carbon Dioxide 26 mmol/L (21-32) 01/19/20 05:00 Anion Gap 7.0 (6-13) 01/19/20 05:00 BUN 20 mg/dL (6-20) 01/19/20 05:00 Creatinine 1.1 mg/dL (0.6-1.2) 01/19/20 05:00 Estimated GFR (MDRD) 66 (>89) L 01/19/20 05:00 Glucose 115 mg/dL (70-100) H 01/19/20 05:00 Lactic Acid 0.7 mmol/L (0.5-2.2) 01/17/20 22:00 Calcium 7.2 mg/dL (8.5-10.3) L 01/19/20 05:00 Phosphorus 2.7 mg/dL (2.5-4.6) 01/19/20 05:00 Magnesium 1.5 mg/dL (1.7-2.8) L 01/19/20 05:00 Total Bilirubin 0.5 mg/dL (0.2-1.0) 01/17/20 19:15 AST 27 IU/L (10-42) 01/17/20 19:15 ALT 28 IU/L (10-60) 01/17/20 19:15 Alkaline Phosphatase 55 IU/L (42-121) 01/17/20 19:15 Troponin I High Sens 14.3 ng/L (2.3-19.7) 01/18/20 08:23 B-Natriuretic Peptide 662 pg/mL (5-100) H 01/17/20 19:15 Total Protein 5.5 g/dL (6.7-8.2) L 01/17/20 19:15 Albumin 2.5 g/dL (3.2-5.5) L 01/19/20 05:00 Globulin 2.5 g/dL (2.1-4.2) 01/17/20 19:15 Albumin/Globulin Ratio 1.2 (1.0-2.2) 01/17/20 19:15 Lipase 21 U/L (22-51) L 01/17/20 19:15 TSH 2.48 uIU/mL (0.34-5.60) 01/17/20 20:32 Urine Color YELLOW 01/18/20 01:30 Urine Clarity CLEAR (CLEAR) 01/18/20 01:30 Urine pH 5.0 PH (5.0-7.5) 01/18/20 01:30 Ur Specific [place] 1.010 (1.002-1.030) 01/18/20 01:30 Urine Protein NEGATIVE mg/dL (NEGATIVE) 01/18/20 01:30 Urine Glucose (UA) NEGATIVE mg/dL (NEGATIVE) 01/18/20 01:30 Urine Ketones NEGATIVE mg/dL (NEGATIVE) 01/18/20 01:30 Urine Occult Blood NEGATIVE (NEGATIVE) 01/18/20 01:30 Urine Nitrite NEGATIVE (NEGATIVE) 01/18/20 01:30 Urine Bilirubin NEGATIVE (NEGATIVE) 01/18/20 01:30 Urine Urobilinogen 0.2 (NORMAL) E.U./dL (NORMAL) 01/18/20 01:30 Ur Leukocyte Esterase NEGATIVE (NEGATIVE) 01/18/20 01:30 Urine RBC None Seen /HPF (0-5) 01/18/20 01:30 Urine WBC 0-3 /HPF (0-3) 01/18/20 01:30 Ur Squamous Epith Cells NONE SEEN (<= Few) 01/18/20 01:30 Urine Bacteria Rare /HPF (None Seen) 01/18/20 01:30 Urine Casts 0-2 Hyaline Casts /LPF 01/18/20 01:30 Urine Culture Comments NOT INDICATED 01/18/20 01:30 Nasal Screen MRSA (PCR) NEGATIVE (NEGATIVE) 01/17/20 21:00
[2020-01-20] MEDS: SODIUM CHLORIDE FLUSH 0.9% 10 ML SYRINGE IVP PRN ×2 (05:00→06:32)
[2020-01-20] MEDS: SODIUM CHLORIDE FLUSH 0.9% 10 ML SYRINGE IVP SCH ×3 (05:00→18:27)
[2020-01-20 05:45] LABS: VBG PH 7.322 (7.31-7.41)
[2020-01-20 05:46] LABS: BASOPHILS % (AUTO) 0.7 %; HGB - HEMOGLOBIN 9.3 g/dL (14.0-18.0); LYMPHOCYTES % (AUTO) 23.2 %; MEAN CORPUSCULAR HEMOGLOBIN 29.9 pg (27.0-31.0); MEAN CORPUSCULAR HGB CONC 31.6 g/dL (32.0-36.0); MEAN CORPUSCULAR VOLUME 94.5 fL (80.0-94.0); MEAN PLATELET VOLUME 11.6 fL (7.4-11.4); MONOCYTES % (AUTO) 5.8 %; NEUTROPHILS % (AUTO) 56.1 %; PLT - PLATELET COUNT 119 10^3/uL (130-450); RED BLOOD COUNT 3.11 10^6/uL (4.70-6.10); RED CELL DISTRIBUTION WIDTH 15.5 % (12.0-15.0); WHITE BLOOD COUNT 5.9 x10^3/uL (4.8-10.8)
[2020-01-20 05:53] LABS: ABNORMAL LYMPHS % (MANUAL) 0 %
[2020-01-20 06:00] LABS: ALBUMIN 2.4 g/dL (3.2-5.5); CALCIUM 7.7 mg/dL (8.5-10.3); MAGNESIUM 1.6 mg/dL (1.7-2.8)
[2020-01-20 06:28] LABS: BAND NEUTROPHILS % (MANUAL) 4 %; DIFFERENTIAL COMMENT MANUAL DIFFERENTIAL; LYMPHOCYTES # (MANUAL) 1.7 10^3/uL (1.5-3.5); LYMPHOCYTES % (MANUAL) 28 %; METAMYELOCYTES % (MANUAL) 1 %; MONOCYTES # (MANUAL) 0.4 10^3/uL (0.0-1.0); MYELOCYTES % (MANUAL) 1 %; PLATELET ESTIMATE, MANUAL DECREASED (<130,000) (NORMAL); RBC MORPHOLOGY (MULTIPLE) NORMAL APPEARANCE (NORMAL)
[2020-01-20] MEDS: METOPROLOL TARTRATE 25 MG TABLET PO SCH ×3 (06:30→22:16)
[2020-01-20] MEDS: VANCOMYCIN INJ 2 GM in SODIUM CHLORIDE 0.9% 500 ML IV SCH (06:32)
[2020-01-20] MEDS: PANTOPRAZOLE 40 MG VIAL IVP SCH (06:32)
[2020-01-20] MEDS: DULoxetine 30 MG CAPSULE PO SCH ×2 (08:11→22:15)
[2020-01-20] MEDS: ASPIRIN EC 81 MG TABLET PO SCH (08:11)
[2020-01-20] MEDS: buPROPion SR 150 MG TABLET PO SCH ×2 (08:11→22:17)
[2020-01-20] MEDS: polyethylene glycoL 3350 17 GM PACKET PO SCH (08:11)
--- NOTE | 2020-01-20 20:17 | PROVIDER PROGRESS NOTE ---
Subjective - Prog Note Date Prog Note Date: 01/20/20 Prog Note Time: 20:25 - Subjective Pt reports feeling: Improved Subjective: He was on 2 L nasal cannula this morning and saturating at 98%. But this afternoon he is 92% on room air. Systolic blood pressure is improved from yesterday. Was as high as 130 this morning and is 110 this afternoon. He is able to ambulate, uses walker to get to the bathroom. Steady on his feet. His altered mental status has resolved according to nursing. Complains of lightheadedness. Denies chest pain, cough, phlegm production. Does not feel the palpitations. Current Medications - Current Medications Current Medications: Active Medications Acetaminophen (Tylenol) 650 mg PO Q6HR PRN PRN Reason: Pain 1 to 4 Last Admin: 01/17/20 22:01 Dose: 650 mg Documented by: Aspirin (Ecotrin) 81 mg PO DAILY [facility] Last Admin: 01/20/20 08:11 Dose: 81 mg Documented by: Bupropion HCl (Wellbutrin Sr) 150 mg PO BID [facility] Last Admin: 01/20/20 08:11 Dose: 150 mg Documented by: Digoxin (Lanoxin) 125 mcg PO DAILY [facility] Digoxin (Lanoxin) 125 mcg PO ONCE STA Stop: 01/20/20 20:21 Duloxetine HCl (Cymbalta) 30 mg PO BID [facility] Last Admin: 01/20/20 08:11 Dose: 30 mg Documented by: Heparin Sodium (Beef Lung) () 30 - 50 unit IVP PRN PRN PRN Reason: Port Protocol (<24 hours) Magnesium Sulfate 1 gm/ Sodium (Chloride) 52 mls @ 54 mls/hr IV ONCE ONE Stop: 01/20/20 21:20 Lorazepam (Ativan) 0.5 mg PO Q6HR PRN PRN Reason: .CHEMO Metoprolol Tartrate (Lopressor) 12.5 mg PO TID [facility] Last Admin: 01/20/20 14:09 Dose: 12.5 mg Documented by: Oxycodone HCl (Roxicodone) 10 mg PO Q6H PRN PRN Reason: PAIN Pantoprazole Sodium (Protonix) 40 mg IVP QDAC [facility] Last Admin: 01/20/20 06:32 Dose: 40 mg Documented by: Polyethylene Glycol (Miralax) 17 gm PO DAILY [facility] Last Admin: 01/20/20 08:11 Dose: Not Given Documented by: Potassium Chloride (K-Dur) 40 meq PO ONCE STA Stop: 01/20/20 20:23 Sodium Chloride (Normal Saline Flush 0.9%) 10 ml IVP 0100,0900,1700 [facility] Last Admin: 01/20/20 18:27 Dose: Not Given Documented by: Sodium Chloride (Normal Saline Flush 0.9%) 10 ml IVP PRN PRN PRN Reason: NEEDED PER PROVIDER ORDERS Last Admin: 01/20/20 06:32 Dose: 10 ml Documented by: Sodium Chloride (Normal Saline Flush 0.9%) 20 ml IVP PRN PRN PRN Reason: After Blood Draw Last Admin: 01/20/20 05:00 Dose: 20 ml Documented by: Alpha Lipoic Acid 1 tab PO DAILY 11/12/19 B-Complex with Vitamin C [Super B Complex-Vitamin C] 1 tab PO DAILY 11/12/19 LORazepam [Ativan] 0.5 mg PO Q6HR PRN 11/12/19 Multivit-Min/FA/Lycopen/Lutein [Centrum Silver Men Tablet] 1 tab DAILY 11/12/19 dexAMETHasone [Dexamethasone] 8 mg PO BID PRN 11/12/19 Aspirin EC [Ecotrin] 81 mg PO DAILY 01/18/20 Duloxetine HCl 30 mg PO BID 01/18/20 Oxycodone HCl/Acetaminophen [Oxycodone-Acetaminophen 10-325] 1 tab PO PRN PRN 01/18/20 buPROPion [Wellbutrin Sr] 150 mg PO BID 01/18/20 Objective - Vital Signs/Intake & Output Reviewed Vital Signs: Yes Intake & Output: Intake & Output 01/17/20 01/18/20 01/19/20 01/20/20 23:59 23:59 23:59 23:59 Intake Total 797.757 7102.5 1217.917 620 Output Total 0 805 700 Balance 510.671 7943.5 517.917 620 - Objective General Appearance: positive: No acute distress, Alert, Other (5 to 10 inches tall and weighs 108.5 kg. On admission he was 108. Peaked at 111. Came down to 105 and is back to 108 again.) Eyes Bilateral: positive: PERRL ENT: positive: Pharynx nml Neck: positive: No JVD. negative: Stiff neck, Carotid bruit Respiratory: positive: No respiratory distress. negative: Rales Cardiovascular: positive: Irregularly irregular, Systolic murmur. negative: Gallop/S4, Friction rub Abdomen: positive: Non-tender, No organomegaly, Nml bowel sounds, No distention Skin: positive: Warm, Dry Extremities: positive: Full ROM, No pedal edema Neurologic/Psychiatric: positive: Oriented x3, CN's nml (2-12), Motor nml - Lab Results Fish Bones: 01/20/20 05:20 01/20/20 05:20 Other Labs: Lab Results x24hrs 01/20/20 01/20/20 01/20/20 Range/Units 05:20 05:20 05:20 WBC 5.9 (4.8-10.8) x10^3/uL RBC 3.11 L (4.70-6.10) 10^6/uL Hgb 9.3 L (14.0-18.0) g/dL Hct 29.4 L (42.0-52.0) % MCV 94.5 H (80.0-94.0) fL MCH 29.9 (27.0-31.0) pg MCHC 31.6 L (32.0-36.0) g/dL RDW 15.5 H (12.0-15.0) % Plt Count 119 L (130-450) 10^3/uL MPV 11.6 H (7.4-11.4) fL Neut # (Auto) Not Reportable Lymph # (Auto) Not Reportable [place] # (Auto) Not Reportable Eos # (Auto) Not Reportable Baso # (Auto) Not Reportable Absolute Nucleated RBC Not Reportable Total Counted 100 Band Neuts % (Manual) 4 (0 - 10) % Abnorm Lymph % (Manual) 0 % Metamyelocytes % 1 H ( - 0) % Myelocytes % 1 H ( - 0) % Nucleated RBC % Not Reportable Neutrophils # (Manual) 3.7 (1.5-6.6) 10^3/uL Lymphocytes # (Manual) 1.7 (1.5-3.5) 10^3/uL Monocytes # (Manual) 0.4 (0.0-1.0) 10^3/uL Eosinophils # (Manual) 0.0 (0-0.7) 10^3/uL Basophils # (Manual) 0.0 (0-0.1) 10^3/uL Differential Comment MANUAL DIFFERENTIAL Platelet Estimate DECREASED (<130,000) (NORMAL) RBC Morph Micro Appear NORMAL APPEARANCE (NORMAL) VBG pH 7.322 (7.31-7.41) Ionized Calcium 1.09 L (1.15-1.33) mmol/L Sodium 140 (135-145) mmol/L Potassium 3.3 L (3.5-5.0) mmol/L Chloride 110 (101-111) mmol/L Carbon Dioxide 25 (21-32) mmol/L Anion Gap 5.0 L (6-13) BUN 16 (6-20) mg/dL Creatinine 1.0 (0.6-1.2) mg/dL Estimated GFR (MDRD) 74 L (>89) Glucose 94 (70-100) mg/dL Calcium 7.7 L (8.5-10.3) mg/dL Phosphorus 2.0 L (2.5-4.6) mg/dL Magnesium 1.6 L (1.7-2.8) mg/dL Albumin 2.4 L (3.2-5.5) g/dL Assessment/Plan - Problem List (1) Gram-positive bacteremia Impression: This is been identified by microbiology lab as a coag negative Staph, which is a skin contaminant. It is not the Streop viridans which he had 3 mos ago. We will stop his empiric vancomycin. Even though it was intended for him did not get any more dosing, he did get a dose this morning. Pharmacy and I have discussed these not to get any more. (2) Hypotension Assessment/Plan: On January 18 systolic got as low as 88. He does get lightheaded. Reluctant to do fluid bolus since he does have an ejection fraction of 35%. With diltiazem drip being discontinued, he has rebounded to 110 systolic. Still in the 90s at times. This morning he came up to 138 systolic. (3) Atrial fibrillation with rapid ventricular response Assessment/Plan: He was started on a diltiazem drip. That is been discontinued. He has been tr ansitioned to dig and Lopressor. Lopressor is low-dose at 12.5 mg p.o. 3 times daily. First dose of digoxin will be today. He did receive 1 dose of 500 mcg yesterday. We have hesitated anticoagulating him in view of his oncology history. Plan: Digoxin 0.[address] Cuevas, [facility]. [phone]. Transfer from ICU to [facility] Assess rate response to meds and see if we can keep hiim below 110 and then dc. (4) Congestive heart failure Qualifiers: Heart failure type: systolic Heart failure chronicity: acute Qualified Code(s): I50.21 - Acute systolic (congestive) heart failure Assessment/Plan: Last Echo was done at [facility] in October 2019, it showed normal LVEF of 60%. Echo done 01/17 and ordered to evaluate for endocarditis, shows EF of 35 to 40%. global hypokinesis. His troponins were negative, he ruled out for an MO. 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 Further new management of this will be needed as an outpt (stress testing and Echo follow-ups by a Financial Advocate). Beta-blockers and Dig for rate control were chosen over Ca-vandana. Careful IV fluid rehydration for his MIKHAIL and hypovolemia, follow I's and O's. Plan: Supplement potassium of 3.3 and magnesium today. (5) Prostate cancer metastatic to bone Assessment/Plan: As per Hx. His Oncologist is at [facility]. (6) Anemia Qualifiers: Anemia type: other cause Other causes of anemia: antineoplastic chemotherap y Qualified Code(s): D64.81 - Anemia due to antineoplastic chemotherapy; T45.1X5A - Adverse effect of antineoplastic and immunosuppressive drugs, initial encounter Assessment/Plan: Due to his cancer and his chemo. Follow CBC daily, transfuse if <7 or if <8 and SOB. he is 9.3 grams today.
[2020-01-20] MEDS ORDERED: DIGOXIN 125 MCG TABLET PO STA (20:20)
[2020-01-20] MEDS ORDERED: POTASSIUM CHLORIDE 20 MEQ TABLET PO STA (20:22)
[2020-01-20] MEDS ORDERED: MAGNESIUM SULFATE 1 GM in SODIUM CHLORIDE 0.9% 50 ML IV ONE (20:23)
[2020-01-21] MEDS: SODIUM CHLORIDE FLUSH 0.9% 10 ML SYRINGE IVP SCH ×3 (01:00→16:15)
[2020-01-21 05:48] LABS: BASOPHILS % (AUTO) 0.5 %; HGB - HEMOGLOBIN 9.5 g/dL (14.0-18.0); LYMPHOCYTES % (AUTO) 19.5 %; MEAN CORPUSCULAR HEMOGLOBIN 30.5 pg (27.0-31.0); MEAN CORPUSCULAR HGB CONC 32.3 g/dL (32.0-36.0); MEAN CORPUSCULAR VOLUME 94.5 fL (80.0-94.0); MEAN PLATELET VOLUME 10.6 fL (7.4-11.4); MONOCYTES % (AUTO) 5.6 %; NEUTROPHILS % (AUTO) 63.7 %; PLT - PLATELET COUNT 132 10^3/uL (130-450); RED BLOOD COUNT 3.11 10^6/uL (4.70-6.10); RED CELL DISTRIBUTION WIDTH 15.8 % (12.0-15.0); WHITE BLOOD COUNT 7.4 x10^3/uL (4.8-10.8)
[2020-01-21 05:55] LABS: ABNORMAL LYMPHS % (MANUAL) 0 %; CALCIUM 7.5 mg/dL (8.5-10.3)
[2020-01-21 06:11] LABS: BAND NEUTROPHILS % (MANUAL) 4 %; LYMPHOCYTES # (MANUAL) 1.1 10^3/uL (1.5-3.5); LYMPHOCYTES % (MANUAL) 15 %; MONOCYTES # (MANUAL) 0.2 10^3/uL (0.0-1.0); PLATELET ESTIMATE, MANUAL DECREASED (<130,000) (NORMAL); RBC MORPHOLOGY (MULTIPLE) NORMAL APPEARANCE (NORMAL)
[2020-01-21 06:12] LABS: DIFFERENTIAL COMMENT MANUAL DIFFERENTIAL
[2020-01-21] MEDS: METOPROLOL TARTRATE 25 MG TABLET PO SCH ×4 (06:15→21:08)
[2020-01-21] MEDS: PANTOPRAZOLE 40 MG VIAL IVP SCH (06:15)
[2020-01-21] MEDS ORDERED: LACTATED RINGERS 1,000 ML IV ONE (08:00)
[2020-01-21] MEDS: buPROPion SR 150 MG TABLET PO SCH ×2 (08:11→21:04)
[2020-01-21] MEDS: ASPIRIN EC 81 MG TABLET PO SCH (08:11)
[2020-01-21] MEDS: DULoxetine 30 MG CAPSULE PO SCH ×2 (08:11→21:04)
[2020-01-21] MEDS: DIGOXIN 125 MCG TABLET PO SCH (08:12)
[2020-01-21] MEDS ORDERED: LACTATED RINGERS 1,000 ML IV SCH (09:00)
[2020-01-21] MEDS ORDERED: DIPHENOX/ATROPINE 2.5/0.025 MG TABLET PO PRN (10:51)
--- NOTE | 2020-01-21 11:50 | PROVIDER PROGRESS NOTE ---
Subjective - Prog Note Date Prog Note Date: 01/21/20 Prog Note Time: 11:53 - Subjective Pt reports feeling: No change Subjective: Tired. No appetite. Having diarrhea. No blood in the stool. No fever spikes. Denies abdominal pain. Cough. Chest pain. Current Medications - Current Medications Current Medications: Active Medications Acetaminophen (Tylenol) 650 mg PO Q6HR PRN PRN Reason: Pain 1 to 4 Last Admin: 01/17/20 22:01 Dose: 650 mg Documented by: Aspirin (Ecotrin) 81 mg PO DAILY [facility] Last Admin: 01/21/20 08:11 Dose: 81 mg Documented by: Bupropion HCl (Wellbutrin Sr) 150 mg PO BID [facility] Last Admin: 01/21/20 08:11 Dose: 150 mg Documented by: Digoxin (Lanoxin) 125 mcg PO DAILY [facility] Last Admin: 01/21/20 08:12 Dose: 125 mcg Documented by: Diphenoxylate HCl/Atropine (Lomotil) 1 tab PO QID PRN PRN Reason: Diarrhea Last Admin: 01/21/20 11:49 Dose: 1 tab Documented by: Duloxetine HCl (Cymbalta) 30 mg PO BID [facility] Last Admin: 01/21/20 08:11 Dose: 30 mg Documented by: Heparin Sodium (Beef Lung) () 30 - 50 unit IVP PRN PRN PRN Reason: Port Protocol (<24 hours) Last Admin: 01/21/20 08:12 Dose: 50 unit Documented by: Lactated Ringer's (Lr) 1,000 mls @ 125 mls/hr IV .Q8H [facility] Last Admin: 01/21/20 09:57 Dose: 125 mls/hr Documented by: Lorazepam (Ativan) 0.5 mg PO Q6HR PRN PRN Reason: .CHEMO Metoprolol Tartrate (Lopressor) 12.5 mg PO TID [facility] Last Admin: 01/21/20 06:15 Dose: 12.5 mg Documented by: Oxycodone HCl (Roxicodone) 10 mg PO Q6H PRN PRN Reason: PAIN Pantoprazole Sodium (Protonix) 40 mg IVP QDAC [facility] Last Admin: 01/21/20 06:15 Dose: 40 mg Documented by: Sodium Chloride (Normal Saline Flush 0.9%) 10 ml IVP 0100,0900,1700 [facility] Last Admin: 01/21/20 08:12 Dose: Not Given Documented by: Sodium Chloride (Normal Saline Flush 0.9%) 10 ml IVP PRN PRN PRN Reason: NEEDED PER PROVIDER ORDERS Last Admin: 01/20/20 06:32 Dose: 10 ml Documented by: Sodium Chloride (Normal Saline Flush 0.9%) 20 ml IVP PRN PRN PRN Reason: After Blood Draw Last Admin: 01/20/20 05:00 Dose: 20 ml Documented by: Alpha Lipoic Acid 1 tab PO DAILY 11/12/19 B-Complex with Vitamin C [Super B Complex-Vitamin C] 1 tab PO DAILY 11/12/19 LORazepam [Ativan] 0.5 mg PO Q6HR PRN 11/12/19 Multivit-Min/FA/Lycopen/Lutein [Centrum Silver Men Tablet] 1 tab DAILY 11/12/19 dexAMETHasone [Dexamethasone] 8 mg PO BID PRN 11/12/19 Aspirin EC [Ecotrin] 81 mg PO DAILY 01/18/20 Duloxetine HCl 30 mg PO BID 01/18/20 Oxycodone HCl/Acetaminophen [Oxycodone-Acetaminophen 10-325] 1 tab PO PRN PRN 01/18/20 buPROPion [Wellbutrin Sr] 150 mg PO BID 01/18/20 Objective - Vital Signs/Intake & Output Reviewed Vital Signs: Yes Vital Signs: Vital Signs x48h Temp Pulse Resp BP BP Pulse Ox 01/21/20 08:03 106 H 103/75 01/21/20 07:48 36.2 C L 100 16 110/94 H 97 01/21/20 06:15 113/66 01/21/20 05:13 36.5 C 119 H 16 130/81 H 93 Intake & Output: Intake & Output 01/18/20 01/19/20 01/20/20 01/21/20 23:59 23:59 23:59 23:59 Intake Total 2203.5 1217.917 620 412 Output Total 805 700 Balance 1398.5 517.917 620 412 - Objective General Appearance: positive: No acute distress, Alert, Other (Very pale gentleman. His paleness is out of proportion to the stated anemia of 9 g of hemoglobin. Appears slightly dispirited. Sad.) Eyes Bilateral: positive: PERRL ENT: positive: Pharynx nml, No signs of dehydration Neck: positive: No JVD. negative: Stiff neck Respiratory: positive: Chest non-tender. negative: Wheezes, Rales, Rhonchi Cardiovascular: positive: Irregularly irregular, Extrasystoles, Other (Blood pressure in the low 100s systolic. Pulse rate varies from 100-119 this morning. Yesterday he was in the 60s and 90s.) Abdomen: positive: Non-tender, No organomegaly, Nml bowel sounds, No distention Skin: positive: Warm, Dry, Pallor, Other (Bruising on the tops of his hands where he has had blood draws and IVs) Extremities: positive: Full ROM, No pedal edema Neurologic/Psychiatric: positive: Oriented x3, CN's nml (2-12), Motor nml, Weakn ess (Mild and generalized. But able to get up to go to the bathroom on his own. Prefers to get back in bed and does not sit in the chair.) - Lab Results Fish Bones: 01/21/20 05:30 01/21/20 05:30 Other Labs: Lab Results x24hrs 01/21/20 01/21/20 01/21/20 Range/Units 05:30 05:30 03:40 WBC 7.4 (4.8-10.8) x10^3/uL RBC 3.11 L (4.70-6.10) 10^6/uL Hgb 9.5 L (14.0-18.0) g/dL Hct 29.4 L (42.0-52.0) % MCV 94.5 H (80.0-94.0) fL MCH 30.5 (27.0-31.0) pg MCHC 32.3 (32.0-36.0) g/dL RDW 15.8 H (12.0-15.0) % Plt Count 132 (130-450) 10^3/uL MPV 10.6 (7.4-11.4) fL Neut # (Auto) Not Reportable Lymph # (Auto) Not Reportable [place] # (Auto) Not Reportable Eos # (Auto) Not Reportable Baso # (Auto) Not Reportable Absolute Nucleated RBC Not Reportable Total Counted 100 Band Neuts % (Manual) 4 (0 - 10) % Abnorm Lymph % (Manual) 0 % Nucleated RBC % Not Reportable Neutrophils # (Manual) 6.1 (1.5-6.6) 10^3/uL Lymphocytes # (Manual) 1.1 L (1.5-3.5) 10^3/uL Monocytes # (Manual) 0.2 (0.0-1.0) 10^3/uL Eosinophils # (Manual) 0.0 (0-0.7) 10^3/uL Basophils # (Manual) 0.0 (0-0.1) 10^3/uL Differential Comment MANUAL DIFFERENTIAL Platelet Estimate DECREASED (<130,000) (NORMAL) RBC Morph Micro Appear NORMAL APPEARANCE (NORMAL) Sodium 140 (135-145) mmol/L Potassium 3.7 (3.5-5.0) mmol/L Chloride 110 (101-111) mmol/L Carbon Dioxide 23 (21-32) mmol/L Anion Gap 7.0 (6-13) BUN 22 H (6-20) mg/dL Creatinine 2.0 H (0.6-1.2) mg/dL Estimated GFR (MDRD) 33 L (>89) Glucose 96 (70-100) mg/dL Calcium 7.5 L (8.5-10.3) mg/dL Stl C. diff Tox B Gene NEGATIVE (NEGATIVE) ABX Reporting Has patient been on IV antibiotics over the past 48 hours?: No Assessment/Plan - Problem List (1) Atrial fibrillation with rapid ventricular response Impression: He was started on a diltiazem drip. That is been discontinued especially in view of his low EF on Echo. He has been transitioned to dig and Lopressor. Lopressor is low-dose at 12.5 mg p.o. 3 times daily. Digoxin was 500 mcg 01/18 and started on 0.125 01/19. We have hesitated anticoagulating him in view of his oncology history.I spoke to cardiology at [facility] today. He gets all of his health care there and if he needed to be transferred he wanted to go there. I spoke to Dr. Mustafa ammonia box tender at [phone]. We discussed whether he was dehydrated or overloaded. His echocardiogram showed an IVC that was normal. He does not have JVD or edema so I do not think he is overloaded. If anything he may be slightly dehydrated. Dr. Mustafa asked us to make sure the potassium and magnesium was supplemented appropriately. They would be glad to see him in the outpatient setting once he was discharged. Transferred to Med surg 01/19 and on floor with tele. Plan: Digoxin 0.125 Increase metoprolol from 12.5 to 25 tid. Assess rate response to meds and see if we can keep his pulse below 110 and then dc. (2) Congestive heart failure Qualifiers: Heart failure type: systolic Heart failure chronicity: acute Qualified Code(s): I50.21 - Acute systolic (congestive) heart failure Assessment/Plan: Last Echo was done at [facility] in October 2019, it showed normal LVEF of 60%. Echo done 01/17 and ordered to evaluate for endocarditis, shows EF of 35 to 40%. global hypokinesis. His troponins were negative, he ruled out for an MS. 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 Further new management of this will be needed as an outpt (stress testing and Echo follow-ups by a Hide Tanner). I've spoken to Dr. Mustafa as above. Beta-blockers and Dig for rate control were chosen over Ca-vandana. Careful IV fluid rehydration for his MIKHAIL and hypovolemia, follow I's and O's. Plan: check mag in am. supplement with po today. K po today. (3) Prostate cancer metastatic to bone Assessment/Plan: As per Hx. His Oncologist is at [facility]. I did call Dr. Cuevas's sericulturist Josy @ [facility] at [phone] to update them, there are no new suggestions for him right now. (4) Anemia Qualifiers: Anemia type: other cause Other causes of anemia: antineoplastic chemotherapy Qualified Code(s): D64.81 - Anemia due to antineoplastic chemotherapy; T45.1X5A - Adverse effect of antineoplastic and immunosuppressive drugs, initial encounter Assessment/Plan: Due to his cancer and his chemo. Follow CBC daily, transfuse if <7 or if <8 and SOB. he is 9.3 grams today. (5) diarrhea. His creatinine has bumped from 1-2 today with the diarrhea. He is C. difficile negative. Plan: Lomotil or Imodium 1000 cc fluid bolus given by hereditary cancer program coordinator this am. (6) Gram-positive bacteremia Impression: This is been identified by microbiology lab as a coag negative Staph, which is a skin contaminant. It is not the Streop viridans which he had 3 mos ago. We will stop his empiric vancomycin. Even though it was intended for him did not get any more dosing, he did get a dose this morning. Pharmacy and I have discussed these not to get any more.
[2020-01-21] MEDS: POTASSIUM CHLORIDE 20 MEQ TABLET PO SCH (12:48)
[2020-01-21] MEDS: MAGNESIUM OXIDE 400 MG TABLET PO SCH (12:48)
[2020-01-21 13:37] LABS: CALCIUM 7.5 mg/dL (8.5-10.3); CREATININE 2.2 mg/dL (0.6-1.2)
[2020-01-21] MEDS: LOPERAMIDE 2 MG CAPSULE PO PRN (16:12)
[2020-01-22] MEDS: LOPERAMIDE 2 MG CAPSULE PO PRN (02:27)
[2020-01-22] MEDS: SODIUM CHLORIDE FLUSH 0.9% 10 ML SYRINGE IVP SCH ×3 (02:27→16:34)
[2020-01-22] MEDS: PANTOPRAZOLE 40 MG VIAL IVP SCH (06:03)
[2020-01-22] MEDS: METOPROLOL TARTRATE 25 MG TABLET PO SCH ×3 (06:04→21:16)
[2020-01-22 07:01] LABS: CALCIUM 7.2 mg/dL (8.5-10.3); CREATININE 2.4 mg/dL (0.6-1.2); MAGNESIUM 1.6 mg/dL (1.7-2.8)
[2020-01-22 07:02] LABS: BASOPHILS % (AUTO) 0.5 %; HGB - HEMOGLOBIN 9.4 g/dL (14.0-18.0); LYMPHOCYTES % (AUTO) 16.5 %; MEAN CORPUSCULAR HEMOGLOBIN 30.4 pg (27.0-31.0); MEAN CORPUSCULAR HGB CONC 32.1 g/dL (32.0-36.0); MEAN CORPUSCULAR VOLUME 94.8 fL (80.0-94.0); MEAN PLATELET VOLUME 11.2 fL (7.4-11.4); MONOCYTES % (AUTO) 5.8 %; NEUTROPHILS % (AUTO) 69.7 %; PLT - PLATELET COUNT 147 10^3/uL (130-450); RED BLOOD COUNT 3.09 10^6/uL (4.70-6.10); WHITE BLOOD COUNT 7.8 x10^3/uL (4.8-10.8)
[2020-01-22 07:11] LABS: ABNORMAL LYMPHS % (MANUAL) 0 %
[2020-01-22 07:35] LABS: BAND NEUTROPHILS % (MANUAL) 2 %; LYMPHOCYTES # (MANUAL) 1.7 10^3/uL (1.5-3.5); LYMPHOCYTES % (MANUAL) 9 %; MONOCYTES # (MANUAL) 0.1 10^3/uL (0.0-1.0); MYELOCYTES % (MANUAL) 5 %
[2020-01-22 07:36] LABS: DIFFERENTIAL COMMENT MANUAL DIFFERENTIAL
[2020-01-22] MEDS: MAGNESIUM OXIDE 400 MG TABLET PO SCH (09:16)
[2020-01-22] MEDS: POTASSIUM CHLORIDE 20 MEQ TABLET PO SCH (09:17)
[2020-01-22] MEDS: ASPIRIN EC 81 MG TABLET PO SCH (09:17)
[2020-01-22] MEDS: buPROPion SR 150 MG TABLET PO SCH ×2 (09:17→21:14)
[2020-01-22] MEDS: DIGOXIN 125 MCG TABLET PO SCH (09:17)
[2020-01-22] MEDS: DULoxetine 30 MG CAPSULE PO SCH ×2 (09:17→21:14)
--- NOTE | 2020-01-22 10:48 | Ultrasound Report ---
PROCEDURE: Retroperitoneal INDICATIONS: renal failure TECHNIQUE: Real-time scanning was performed of the retroperitoneal organs, with image documentation. COMPARISON: None. FINDINGS: Kidneys: Kidneys are atrophic. Right kidney measures 11.1 cm long; left kidney measures 14.7 cm long . Right renal cortical thickness is 0.9 cm; left renal cortical thickness is 1.3 cm. No solid jose luis s, hydronephrosis, or nephrolithiasis. Il defined focus of hypoechogenicity in the mid portion of th e right kidney. Bladder Prevoid volume 160 cc. Patient unable to void. Bilateral ureteral jets are not visualized. IMPRESSION: 1. Renal atrophy without obstruction. 2. Ill defined hypoechogencity in the right kidney. It is not well-characterized and could be artifa ct. As clinical concern persists, CT is recommended for further evaluation. Reviewed by: Nell Almonte MD on 01/22/2020 10:47 AM PDT Approved by: Nell Almonte MD on 01/22/2020 10:47 AM PDT Station ID: [id number]
[2020-01-22 14:19] LABS: BILIRUBIN,URINE NEGATIVE (NEGATIVE); GLUCOSE, URINE (UA) NEGATIVE (NEGATIVE); KETONES,URINE (UA) NEGATIVE (NEGATIVE); LEUKOCYTE ESTERASE, URINE NEGATIVE (NEGATIVE); NITRITE,URINE NEGATIVE (NEGATIVE); OCCULT BLOOD,URINE NEGATIVE (NEGATIVE); PROTEIN,URINE NEGATIVE (NEGATIVE); UROBILINOGEN,URINE 0.2 (NORMAL) E.U./dL (NORMAL)
[2020-01-22 14:20] LABS: CLARITY,URINE CLEAR (CLEAR)
[2020-01-22 14:36] LABS: BACTERIA,URINE Few /HPF (None Seen); CRYSTALS,URINE 0-2 Uric Acid /LPF; RBC,URINE 0-5 /HPF (0-5); SQUAMOUS EPITHELIAL CELL,UR RARE Squamous (<= Few)
--- NOTE | 2020-01-22 15:22 | PROVIDER PROGRESS NOTE ---
Subjective - Prog Note Date Prog Note Date: 01/22/20 Prog Note Time: 15:24 - Subjective Subjective: A little over 24 hours ago he noticed that he was having decreased urine output. When we bladder scanned him yesterday and today he has had anywhere from 100 260 cc in his bladder in spite of no urination. Creatinine doubled yesterday morning. We gave him a liter of lactated Ringer's, and then start him on IV fluid maintenance for another liter. In spite of that his creatinine went from 1.0>>2.0 and this a.m. he is 2.4. Retroperitoneal ultrasound was done and he does not have obstruction. He does have an ill-defined hypoechogenicity in the right kidney that is not well characterized. CT is recommended for further evaluation of there is a clinical insert concern. His prevoid volume was 160 cc and he was unable to void. Bilateral ureteral jets not visualized. Again that 160 cc in someone who is received a liter of lactated Ringer's post another liter. I did speak to Dr. Ferrara, nephrology. He is concerned. If this patient continues to bump up his creatinine, he may need to be evaluated for acute renal failure. We discussed the possible etiologies. This patient has not had a hypotensive episode. His ejection fraction is 30% but his blood pressure has been relatively well maintained. He has been in the 120s to 130s systolic. He did get 2 doses of vancomycin early in his stay here but each of those was 1 g. In spite of Lomotil and Imodium, he continues to have diarrhea. It is clear water he says. He is C. difficile negative. No blood. No abdominal pain. Current Medications - Current Medications Current Medications: Active Medications Acetaminophen (Tylenol) 650 mg PO Q6HR PRN PRN Reason: Pain 1 to 4 Last Admin: 01/17/20 22:01 Dose: 650 mg Documented by: Aspirin (Ecotrin) 81 mg PO DAILY COUNT INCLUDES THE [facility] Last Admin: 01/22/20 09:17 Dose: 81 mg Documented by: Bupropion HCl (Wellbutrin Sr) 150 mg PO BID COUNT INCLUDES THE [facility] Last Admin: 01/22/20 09:17 Dose: 150 mg Documented by: Digoxin (Lanoxin) 125 mcg PO DAILY COUNT INCLUDES [facility] Last Admin: 01/22/20 09:17 Dose: 125 mcg Documented by: Diphenoxylate HCl/Atropine (Lomotil) 1 tab PO QID PRN PRN Reason: Diarrhea Last Admin: 01/21/20 11:49 Dose: 1 tab Documented by: Duloxetine HCl (Cymbalta) 30 mg PO BID COUNT INCLUDES [facility] Last Admin: 01/22/20 09:17 Dose: 30 mg Documented by: Heparin Sodium (Beef Lung) () 30 - 50 unit IVP PRN PRN PRN Reason: Port Protocol (<24 hours) Last Admin: 01/22/20 06:04 Dose: 30 unit Documented by: Loperamide HCl (Imodium) 2 mg PO QID PRN PRN Reason: Diarrhea Last Admin: 01/22/20 02:27 Dose: 2 mg Documented by: Lorazepam (Ativan) 0.5 mg PO Q6HR PRN PRN Reason: .CHEMO Magnesium Oxide (Mag Ox) [facility] [place] Admin: 01/22/20 09:16 Dose: 400 mg Documented by: Metoprolol Tartrate (Lopressor) 25 mg PO TID COUNT INCLUDES [facility] Last Admin: 01/22/20 14:23 Dose: 25 mg Documented by: Oxycodone HCl (Roxicodone) 10 mg PO Q6H PRN PRN Reason: PAIN Pantoprazole Sodium (Protonix) 40 mg IVP QDAC COUNT INCLUDES THE [facility] Last Admin: 01/22/20 06:03 Dose: 40 mg Documented by: Potassium Chloride (K-Dur) 20 meq PO DAILYWM COUNT INCLUDES THE [facility] Last Admin: 01/22/20 09:17 Dose: 20 meq Documented by: Sodium Chloride (Normal Saline Flush 0.9%) 10 ml IVP 0100,0900,1700 COUNT INCLUDES THE [facility] Last Admin: 01/22/20 09:17 Dose: Not Given Documented by: Sodium Chloride (Normal Saline Flush 0.9%) 10 ml IVP PRN PRN PRN Reason: NEEDED PER PROVIDER ORDERS Last Admin: 01/20/20 06:32 Dose: 10 ml Documented by: Sodium Chloride (Normal Saline Flush 0.9%) 20 ml IVP PRN PRN PRN Reason: After Blood Draw Last Admin: 01/20/20 05:00 Dose: 20 ml Documented by: Alpha Lipoic Acid 1 tab PO DAILY 11/12/19 B-Complex with Vitamin C [Super B Complex-Vitamin C] 1 tab PO DAILY 11/12/19 LORazepam [Ativan] 0.5 mg PO Q6HR PRN 11/12/19 Multivit-Min/FA/Lycopen/Lutein [Centrum Silver Men Tablet] 1 tab DAILY 11/12/19 dexAMETHasone [Dexamethasone] 8 mg PO BID PRN 11/12/19 Aspirin EC [Ecotrin] 81 mg PO DAILY 01/18/20 Duloxetine HCl 30 mg PO BID 01/18/20 Oxycodone HCl/Acetaminophen [Oxycodone-Acetaminophen 10-325] 1 tab PO PRN PRN 01/18/20 buPROPion [Wellbutrin Sr] 150 mg PO BID 01/18/20 Objective - Vital Signs/Intake & Output Reviewed Vital Signs: Yes Vital Signs: Vital Signs x48h Temp Pulse Pulse Resp BP BP Pulse Ox 01/22/20 14:23 116/81 H 01/22/20 13:27 36.5 C 107 H 20 119/69 95 01/22/20 08:04 36.5 C 122 H 16 122/80 94 Intake & Output: Intake & Output 01/19/20 01/20/20 01/21/20 01/22/20 23:59 23:59 23:59 23:59 Intake Total 1217.925 813 8701.417 380 Output Total 700 400 Balance 517.615 776 9556.417 -20 - Objective General Appearance: positive: No acute distress, Alert, Other (very pale, fatigued appearing white male, sitting at edge of bed.) Eyes Bilateral: positive: PERRL, EOMI ENT: positive: No signs of dehydration Neck: positive: No JVD. negative: Stiff neck Respiratory: positive: Chest non-tender. negative: Wheezes, Rales, Rhonchi Cardiovascular: positive: Irregularly irregular, Systolic murmur. negative: Gallop/S4, Friction rub Abdomen: positive: Non-tender, No organomegaly, Nml bowel sounds, No distention Skin: positive: Warm, Dry, Pallor Extremities: positive: Full ROM, Pedal edema Neurologic/Psychiatric: positive: Oriented x3, CN's nml (2-12), Motor nml - Lab Results Fish Bones: 01/22/20 06:05 01/22/20 06:05 Other Labs: Lab Results x24hrs 08/21/20 08/21/20 08/21/20 Range/Units 14:00 06:05 06:05 WBC 7.8 (4.8-10.8) x10^3/uL RBC 3.09 L (4.70-6.10) 10^6/uL Hgb 9.4 L (14.0-18.0) g/dL Hct 29.3 L (42.0-52.0) % MCV 94.8 H (80.0-94.0) fL MCH 30.4 (27.0-31.0) pg MCHC 32.1 (32.0-36.0) g/dL RDW 16.0 H (12.0-15.0) % Plt Count 147 (130-450) 10^3/uL MPV 11.2 (7.4-11.4) fL Neut # (Auto) Not Reportable Lymph # (Auto) Not Reportable Miller # (Auto) Not Reportable Eos # (Auto) Not Reportable Baso # (Auto) Not Reportable Absolute Nucleated RBC Not Reportable Total Counted 100 Band Neuts % (Manual) 2 (0 - 10) % Reactive Lymphs % (Man) 13 % Abnorm Lymph % (Manual) 0 % Myelocytes % 5 H ( - 0) % Nucleated RBC % Not Reportable Neutrophils # (Manual) 5.6 (1.5-6.6) 10^3/uL Lymphocytes # (Manual) 1.7 (1.5-3.5) 10^3/uL Monocytes # (Manual) 0.1 (0.0-1.0) 10^3/uL Eosinophils # (Manual) 0.0 (0-0.7) 10^3/uL Basophils # (Manual) 0.0 (0-0.1) 10^3/uL Differential Comment MANUAL DIFFERENTIAL Manual Slide Review Indicated Sodium 140 (135-145) mmol/L Potassium 3.9 (3.5-5.0) mmol/L Chloride 110 (101-111) mmol/L Carbon Dioxide 24 (21-32) mmol/L Anion Gap 6.0 (6-13) BUN 26 H (6-20) mg/dL Creatinine 2.4 H (0.6-1.2) mg/dL Estimated GFR (MDRD) 27 L (>89) Glucose 97 (70-100) mg/dL Calcium 7.2 L (8.5-10.3) mg/dL Magnesium 1.6 L (1.7-2.8) mg/dL Urine Color YELLOW Urine Clarity CLEAR (CLEAR) Urine pH 5.0 (5.0-7.5) PH Ur Specific [place] 1.020 (1.002-1.030) Urine Protein NEGATIVE (NEGATIVE) mg/dL Urine Glucose (UA) NEGATIVE (NEGATIVE) mg/dL Urine Ketones NEGATIVE (NEGATIVE) mg/dL Urine Occult Blood NEGATIVE (NEGATIVE) Urine Nitrite NEGATIVE (NEGATIVE) Urine Bilirubin NEGATIVE (NEGATIVE) Urine Urobilinogen 0.2 (NORMAL) (NORMAL) E.U./dL Ur Leukocyte Esterase NEGATIVE (NEGATIVE) Urine RBC 0-5 (0-5) /HPF Urine WBC 0-3 (0-3) /HPF Ur Squamous Epith Cells RARE Squamous (<= Few) Urine Crystals 0-2 Uric Acid /LPF Urine Bacteria Few (None Seen) /HPF ABX Reporting Has patient been on IV antibiotics over the past 48 hours?: Yes Assessment/Plan - Problem List (1) Acute renal failure Impression: At this time is this ATN, versus direct toxic effect of an agent were not aware of. After starting the work-up and speaking to the elevator constructor, the patient was able to walk to the bathroom, and sit on the toilet and void 560 cc. Plan: Repeat BMP in the morning. If creatinine continues to rise, will reach out to [facility] at Dr. Sears's request to have the patient transferred for urgent nephrology evaluation. I did let the patient know as well as his son Mykel. Qualifiers: Acute renal failure type: unspecified Qualified Code(s): N17.9 - Acute kidney failure, unspecified (2) Diarrhea Impression: add questran to slow it down. Qualifiers: Diarrhea type: functional diarrhea Qualified Code(s): K59.1 - Functional diarrhea (3) Atrial fibrillation with rapid ventricular response Impression: He was started on a diltiazem drip. That is been discontinued especially in view of his low EF on Echo. He has been transitioned to dig and Lopressor. Lopressor is low-dose at 12.5 mg p.o. 3 times daily. Digoxin was 500 mcg 01/18 and started on 0.125 01/19. We have hesitated anticoagulating him in view of his oncology history. I spoke to cardiology at [facility] 01/20. He gets all of his health care there and if he needed to be transferred he wanted to go there. I spoke to Dr. Mustafa showroom consultant at [phone]. We discussed whether he was dehydrated or overloaded. His echocardiogram showed an IVC that was normal. He does not have JVD or edema so I do not think he is overloaded. If anything he may be slightly dehydrated. Dr. Mustafa asked us to make sure the potassium and magnesium was supplemented appropriately. They would be glad to see him in the outpatient setting once he was discharged. Transferred to Med surg 01/19 and on floor with tele. Metoprolol increased to 25 tid on 01/20 and unclear response. Pulse from 05:30 and 08:30 today are the only ones recorded and they are still 110-120. Plan: Continue Digoxin 0.125 and metoprolol 25 tid. Assess rate response to meds and see if we can keep his pulse below 110 and then dc. (3) Congestive heart failure Qualifiers: Heart failure type: systolic Heart failure chronicity: acute Qualified Code(s): I50.21 - Acute systolic (congestive) heart failure Assessment/Plan: Last Echo was done at [facility] in October 2019, it showed normal LVEF of 60%. Echo done 01/17 and ordered to evaluate for endocarditis, shows EF of 35 to 40%. global hypokinesis. His troponins were negative, he ruled out for an MS. 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 Further new management of this will be needed as an outpt (stress testing and Echo follow-ups by a Control Panel Operator). I've spoken to Dr. Mustafa at [facility] 01/20. Beta-blockers and Dig for rate control were chosen over Ca-vandana. Careful IV fluid rehydration for his MIKHAIL and hypovolemia, follow I's and O's. In spite of Mg oxide 400 bid, his mag is low Plan: supplement w IV mag. (4) Prostate cancer metastatic to bone Assessment/Plan: As per Hx. His Oncologist is at [facility]. I did call Dr. Cuevas's interventional physician Josy @ [facility] cancer care at [phone] to update them, there are no new suggestions for him right now. (5) Anemia Qualifiers: Anemia type: other cause Other causes of anemia: antineoplastic chemotherapy Qualified Code(s): D64.81 - Anemia due to antineoplastic c hemotherapy; T45.1X5A - Adverse effect of antineoplastic and immunosuppressive drugs, initial encounter Assessment/Plan: Due to his cancer and his chemo. Follow CBC daily, transfuse if <7 or if <8 and SOB. he is 9.4 grams today. (6) Gram-positive bacteremia Impression: This is been identified by microbiology lab as a coag negative Staph, which is a skin contaminant. It is not the Streop viridans which he had 3 mos ago. We will stop his empiric vancomycin. Even though it was intended for him did not get any more dosing, he did get a dose this morning. Pharmacy and I have discussed these not to get any more.
[2020-01-22] MEDS ORDERED: MAGNESIUM SULFATE 1 GM/2 ML VIAL IVP STA (15:36)
[2020-01-22] MEDS ORDERED: MAGNESIUM SULFATE 2 GRAM 2 GM/50 ML BAG IV ONE (16:00)
[2020-01-22] MEDS: CHOLESTYRAMINE 4 GM PACKET PO SCH (21:14)
[2020-01-23] MEDS: SODIUM CHLORIDE FLUSH 0.9% 10 ML SYRINGE IVP SCH ×3 (00:59→21:07)
[2020-01-23] MEDS: PANTOPRAZOLE 40 MG VIAL IVP SCH (06:12)
[2020-01-23] MEDS: METOPROLOL TARTRATE 25 MG TABLET PO SCH ×3 (06:12→21:06)
[2020-01-23] MEDS: SODIUM CHLORIDE FLUSH 0.9% 10 ML SYRINGE IVP PRN ×2 (06:13)
[2020-01-23 07:03] LABS: CALCIUM 7.3 mg/dL (8.5-10.3); CREATININE 2.3 mg/dL (0.6-1.2); MAGNESIUM 1.8 mg/dL (1.7-2.8); PHOSPHORUS 2.9 mg/dL (2.5-4.6)
[2020-01-23] MEDS: DULoxetine 30 MG CAPSULE PO SCH ×2 (08:12→21:06)
[2020-01-23] MEDS: DIGOXIN 125 MCG TABLET PO SCH (08:12)
[2020-01-23] MEDS: buPROPion SR 150 MG TABLET PO SCH ×2 (08:13→21:06)
[2020-01-23] MEDS: ASPIRIN EC 81 MG TABLET PO SCH (08:13)
[2020-01-23] MEDS: MAGNESIUM OXIDE 400 MG TABLET PO SCH (08:13)
[2020-01-23] MEDS: POTASSIUM CHLORIDE 20 MEQ TABLET PO SCH (08:13)
[2020-01-23] MEDS: CHOLESTYRAMINE 4 GM PACKET PO SCH ×2 (08:17→21:07)
--- NOTE | 2020-01-23 12:56 | PROVIDER PROGRESS NOTE ---
Subjective - Prog Note Date Prog Note Date: 01/23/20 Prog Note Time: 12:54 - Subjective Pt reports feeling: No change Subjective: Dizzy, lightheaded. Really lightheaded when he stands. Tired. Tries to get up and do anything his pulse will go into the 120s. Current Medications - Current Medications Current Medications: Active Medications Acetaminophen (Tylenol) 650 mg PO Q6HR PRN PRN Reason: Pain 1 to 4 Last Admin: 01/17/20 22:01 Dose: 650 mg Documented by: Aspirin (Ecotrin) 81 mg PO DAILY [facility] Last Admin: 01/23/20 08:13 Dose: 81 mg Documented by: Bupropion HCl (Wellbutrin Sr) 150 mg PO BID [facility] Last Admin: 01/23/20 08:13 Dose: 150 mg Documented by: Cholestyramine/Sucrose (Questran) 4 gm PO BID [facility] Last Admin: 01/23/20 08:17 Dose: 4 gm Documented by: Digoxin (Lanoxin) 125 mcg PO DAILY [facility] Last Admin: 01/23/20 08:12 Dose: 125 mcg Documented by: Diphenoxylate HCl/Atropine (Lomotil) 1 tab PO QID PRN PRN Reason: Diarrhea Last Admin: 01/21/20 11:49 Dose: 1 tab Documented by: Duloxetine HCl (Cymbalta) 30 mg PO BID [facility] Last Admin: 01/23/20 08:12 Dose: 30 mg Documented by: Heparin Sodium (Beef Lung) () 30 - 50 unit IVP PRN PRN PRN Reason: Port Protocol (<24 hours) Last Admin: 01/23/20 06:25 Dose: 50 unit Documented by: Lactated Ringer's (Lr) 500 mls @ 999 mls/hr IV ONCE ONE Stop: 01/23/20 13:30 Loperamide HCl (Imodium) 2 mg PO QID PRN PRN Reason: Diarrhea Last Admin: 01/22/20 02:27 Dose: 2 mg Documented by: Lorazepam (Ativan) 0.5 mg PO Q6HR PRN PRN Reason: .CHEMO Magnesium Oxide (Mag Ox) 400 mg PO DAILYWM [facility] Last Admin: 01/23/20 08:13 Dose: 400 mg Documented by: Metoprolol Tartrate (Lopressor) 25 mg PO TID [facility] Last Admin: 01/23/20 06:12 Dose: 25 mg Documented by: Oxycodone HCl (Roxicodone) 10 mg PO Q6H PRN PRN Reason: PAIN Pantoprazole Sodium (Protonix) 40 mg IVP QDAC [facility] Last Admin: 01/23/20 06:12 Dose: 40 mg Documented by: Potassium Chloride (K-Dur) 20 meq PO DAILYWM [facility] Last Admin: 01/23/20 08:13 Dose: 20 meq Documented by: Sodium Chloride (Normal Saline Flush 0.9%) 10 ml IVP 0100,0900,1700 [facility] Last Admin: 01/23/20 08:18 Dose: 10 ml Documented by: Sodium Chloride (Normal Saline Flush 0.9%) 10 ml IVP PRN PRN PRN Reason: NEEDED PER PROVIDER ORDERS Last Admin: 01/23/20 06:13 Dose: 10 ml Documented by: Sodium Chloride (Normal Saline Flush 0.9%) 20 ml IVP PRN PRN PRN Reason: After Blood Draw Last Admin: 01/23/20 06:13 Dose: 30 ml Documented by: Alpha Lipoic Acid 1 tab PO DAILY 11/12/19 B-Complex with Vitamin C [Super B Complex-Vitamin C] 1 tab PO DAILY 11/12/19 LORazepam [Ativan] 0.5 mg PO Q6HR PRN 11/12/19 Multivit-Min/FA/Lycopen/Lutein [Centrum Silver Men Tablet] 1 tab DAILY 11/12/19 dexAMETHasone [Dexamethasone] 8 mg PO BID PRN 11/12/19 Aspirin EC [Ecotrin] 81 mg PO DAILY 01/18/20 Duloxetine HCl 30 mg PO BID 01/18/20 Oxycodone HCl/Acetaminophen [Oxycodone-Acetaminophen 10-325] 1 tab PO PRN PRN 01/18/20 buPROPion [Wellbutrin Sr] 150 mg PO BID 01/18/20 Objective - Vital Signs/Intake & Output Reviewed Vital Signs: Yes Vital Signs: Vital Signs x48h Temp Pulse Pulse Resp BP BP Pulse Ox 01/23/20 07:34 36.3 C L 76 20 112/85 H 96 01/23/20 06:12 135/87 H 01/23/20 05:00 36.1 C L 106 H 20 97 Intake & Output: Intake & Output 08/01/21/20 01/22/20 01/23/20 23:59 23:59 23:59 23:59 Intake Total 620 9858.417 610 490 Output Total 650 Balance 620 9778.417 -37 490 - Objective General Appearance: positive: No acute distress, Other (Very fatigued and pale appearing. He almost looks pale enough to need a transfusion but CBC is stable.) Eyes Bilateral: positive: PERRL ENT: positive: No signs of dehydration Neck: positive: No JVD. negative: Lymphadenopathy (R), Lymphadenopathy (L), Stiff neck Respiratory: positive: Chest non-tender, No respiratory distress. negative: Wheezes, Rales, Rhonchi Cardiovascular: positive: Irregularly irregular, Tachycardia (With exertion), Systolic murmur, Other (Orthostatic). negative: Gallop/S4, Friction rub Abdomen: positive: Non-tender, No organomegaly, Nml bowel sounds, No distention, Other (Frequent urge to urinate. Has been producing urine since yesterday.) Skin: positive: Warm, Dry Extremities: positive: No pedal edema Neurologic/Psychiatric: positive: Oriented x3, CN's nml (2-12), Motor nml - Lab Results Fish Bones: 01/22/20 06:05 01/23/20 06:25 Other Labs: Lab Results x24hrs 01/23/20 01/22/20 Range/Units 06:25 14:00 Sodium 140 (135-145) mmol/L Potassium 3.9 (3.5-5.0) mmol/L Chloride 111 (101-111) mmol/L Carbon Dioxide 23 (21-32) mmol/L Anion Gap 6.0 (6-13) BUN 24 H (6-20) mg/dL Creatinine 2.3 H (0.6-1.2) mg/dL Estimated GFR (MDRD) 28 L (>89) Glucose 97 (70-100) mg/dL Calcium 7.3 L (8.5-10.3) mg/dL Phosphorus 2.9 (2.5-4.6) mg/dL Magnesium 1.8 (1.7-2.8) mg/dL Urine Color YELLOW Urine Clarity CLEAR (CLEAR) Urine pH 5.0 (5.0-7.5) PH Ur Specific [place] 1.020 (1.002-1.030) Urine Protein NEGATIVE (NEGATIVE) mg/dL Urine Glucose (UA) NEGATIVE (NEGATIVE) mg/dL Urine Ketones NEGATIVE (NEGATIVE) mg/dL Urine Occult Blood NEGATIVE (NEGATIVE) Urine Nitrite NEGATIVE (NEGATIVE) Urine Bilirubin NEGATIVE (NEGATIVE) Urine Urobilinogen 0.2 (NORMAL) (NORMAL) E.U./dL Ur Leukocyte Esterase NEGATIVE (NEGATIVE) Urine RBC 0-5 (0-5) /HPF Urine WBC 0-3 (0-3) /HPF Ur Squamous Epith Cells RARE Squamous (<= Few) Urine Crystals 0-2 Uric Acid /LPF Urine Bacteria Few (None Seen) /HPF ABX Reporting Has patient been on IV antibiotics over the past 48 hours?: Yes Assessment/Plan - Problem List (1) Acute renal failure Impression: 01/22: creat down to 2.3. Spoke to Mykel that it's down. No transfer for now. He is urinating better as well. 01/21: At this time is this ATN, versus direct toxic effect of an agent we're not aware of. After starting the work-up and speaking to the coffee bar attendant, the patient was able to walk to the bathroom, and sit on the toilet and void 560 cc. Repeat BMP in the morning. If creatinine continues to rise, will reach out to [facility] at Dr. Sears's request to have the patient transferred for urgent nephrology evaluation. I did let the patient know as well as his son Rojelio daniels. Qualifiers: Acute renal failure type: unspecified Qualified Code(s): N17.9 - Acute kidney failure, unspecified (2) Diarrhea Impression: 01/22: Last BM yesterday. 01/21:add questran to slow it down. Qualifiers: Diarrhea type: functional diarrhea Qualified Code(s): K59.1 - Functional diarrhea (3) Atrial fibrillation with rapid ventricular response Impression: He was started on a diltiazem drip. That is been discontinued especially in view of his low EF on Echo. He has been transitioned to dig and Lopressor. Lopressor is low-dose at 12.5 mg p.o. 3 times daily. Digoxin was 500 mcg 01/18 and started on 0.125 01/19. We have hesitated anticoagulating him in view of his oncology history. I spoke to cardiology at [facility] 01/20. He gets all of his health care there and if he needed to be transferred he wanted to go there. I spoke to Dr. Mustafa electronic repair troubleshooter at [phone]. We discussed whether he was dehydrated or overloaded. His echocardiogram showed an IVC that was normal. He does not have JVD or edema so I do not think he is overloaded. If anything he may be slightly dehydrated. Dr. Mustafa asked us to make sure the potassium and magnesium was supplemented appropriately. They would be glad to see him in the outpatient setting once he was discharged. Transferred to Med surg 01/19 and on floor with tele. Metoprolol increased to 25 tid on 01/20 and unclear response. Pulse from 05:30 and 08:30 today are the only ones recorded and they are still 110-120. 01/21: Continue Digoxin 0.125 and metoprolol 25 tid. Assess rate response to meds and see if we can keep his pulse below 110 and then dc. 01/22: Orthostatics recorded this morning show blood pressure 121/91 with a pulse of 75 supine. Sitting 124/85 with a heart rate of 109. Standing is 93/57 with a heart rate of 110. He tends to be 76-80 when he sitting down. Will give 500 cc fluid bolus. See below. (3) Congestive heart failure Qualifiers: Heart failure type: systolic Heart failure chronicity: acute Qualified Code(s): I50.21 - Acute systolic (congestive) heart failure Assessment/Plan: Last Echo was done at [facility] in October 2019, it showed normal LVEF of 60%. Echo done 01/17 and ordered to evaluate for endocarditis, shows EF of 35 to 40%. global hypokinesis. His troponins were negative, he ruled out for an SC. 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 Further new management of this will be needed as an outpt (stress testing and Echo follow-ups by a Change Management Coordinator). I've spoken to Dr. Mustafa at [facility] 01/20. Beta-blockers and Dig for rate control were chosen over Ca-vandana. Careful IV fluid rehydration for his MIKHAIL and hypovolemia, follow I's and O's. In spite of Mg oxide 400 bid, his mag is low 01/21: supplement w IV mag. 01/22: Some evidence of orthostatic hypotension. Difficult to assess dryness versus fluid overload. At this time his exam does not show fluid overload, and his pulse and pressure drop when he stands.500 cc fluid bolus. Mg 1.8 and K 3.9. Will reassess after fluid bolus. If standing and exertional tachycardia improves then his fluid status may be stable. If still continues to be tachycardic will give another 500 cc bolus. (4) Prostate cancer metastatic to bone Assessment/Plan: As per Hx. His Oncologist is at [facility]. I did call Dr. Cuevas's field education coordinator Josy @ [facility] at [phone] to update them, there are no new suggestions for him right now. (5) Anemia Qualifiers: Anemia type: other cause Other causes of anemia: antineoplastic chemotherapy Qualified Code(s): D64.81 - Anemia due to antineoplastic yara motherapy; T45.1X5A - Adverse effect of antineoplastic and immunosuppressive drugs, initial encounter Assessment/Plan: Due to his cancer and his chemo. Follow CBC daily, transfuse if <7 or if <8 and SOB. he is 9.4 grams today.
[2020-01-23] MEDS ORDERED: LACTATED RINGERS 500 ML IV ONE (13:00)
[2020-01-24] MEDS: SODIUM CHLORIDE FLUSH 0.9% 10 ML SYRINGE IVP PRN (05:25)
[2020-01-24 05:46] LABS: HGB - HEMOGLOBIN 9.5 g/dL (14.0-18.0)
[2020-01-24 05:58] LABS: CALCIUM 7.4 mg/dL (8.5-10.3); CREATININE 2.1 mg/dL (0.6-1.2); MAGNESIUM 1.6 mg/dL (1.7-2.8); PHOSPHORUS 3.1 mg/dL (2.5-4.6)
[2020-01-24] MEDS: SODIUM CHLORIDE FLUSH 0.9% 10 ML SYRINGE IVP SCH ×3 (06:17→16:28)
[2020-01-24] MEDS: METOPROLOL TARTRATE 25 MG TABLET PO SCH ×3 (06:17→20:45)
[2020-01-24] MEDS: PANTOPRAZOLE 40 MG VIAL IVP SCH (06:17)
[2020-01-24] MEDS: POTASSIUM CHLORIDE 20 MEQ TABLET PO SCH (10:03)
[2020-01-24] MEDS: DIGOXIN 125 MCG TABLET PO SCH (10:03)
[2020-01-24] MEDS: MAGNESIUM OXIDE 400 MG TABLET PO SCH (10:04)
[2020-01-24] MEDS: ASPIRIN EC 81 MG TABLET PO SCH (10:04)
[2020-01-24] MEDS: buPROPion SR 150 MG TABLET PO SCH ×2 (10:05→20:45)
[2020-01-24] MEDS: CHOLESTYRAMINE 4 GM PACKET PO SCH ×2 (10:05→20:45)
[2020-01-24] MEDS: DULoxetine 30 MG CAPSULE PO SCH ×2 (10:05→20:45)
[2020-01-24 17:00] LABS: DIGOXIN 0.7 ng/mL
--- NOTE | 2020-01-24 17:34 | PROVIDER PROGRESS NOTE ---
Subjective - Prog Note Date Prog Note Date: 01/24/20 Prog Note Time: 18:25 - Subjective Subjective: Very tired. But no chest pain, no shortness of breath alert, independent in his room but very slow to move with a walker.No record of urine output yesterday. But he did make urine. Today so far he has urinated 250 cc. Yesterday's orthostatic changes seem to improve with 2 fluid boluses. But then he is orthostatic again today. Supine he is 125/78. Sitting he is 104/82. Standing he is 96/61. He is 96% on room air, no increased respiration. Current Medications - Current Medications Current Medications: Active Medications Acetaminophen (Tylenol) 650 mg PO Q6HR PRN PRN Reason: Pain 1 to 4 Last Admin: 01/17/20 22:01 Dose: 650 mg Documented by: Aspirin (Ecotrin) 81 mg PO DAILY [facility] Last Admin: 01/24/20 10:04 Dose: 81 mg Documented by: Bupropion HCl (Wellbutrin Sr) 150 mg PO BID [facility] Last Admin: 01/24/20 10:05 Dose: 150 mg Documented by: Cholestyramine/Sucrose (Questran) 4 gm PO BID [facility] Last Admin: 01/24/20 10:05 Dose: Not Given Documented by: Digoxin (Lanoxin) 125 mcg PO DAILY [facility] Last Admin: 01/24/20 10:03 Dose: 125 mcg Documented by: Diphenoxylate HCl/Atropine (Lomotil) 1 tab PO QID PRN PRN Reason: Diarrhea Last Admin: 01/21/20 11:49 Dose: 1 tab Documented by: Duloxetine HCl (Cymbalta) 30 mg PO BID [facility] Last Admin: 01/24/20 10:05 Dose: 30 mg Documented by: Heparin Sodium (Beef Lung) () 30 - 50 unit IVP PRN PRN PRN Reason: Port Protocol (<24 hours) Last Admin: 01/24/20 10:06 Dose: 50 unit Documented by: Loperamide HCl (Imodium) 2 mg PO QID PRN PRN Reason: Diarrhea Last Admin: 01/22/20 02:27 Dose: 2 mg Documented by: Lorazepam (Ativan) 0.5 mg PO Q6HR PRN PRN Reason: .CHEMO Magnesium Oxide (Mag Ox) 400 mg PO DAILYWM [facility] Last Admin: 01/24/20 10:04 Dose: 400 mg Documented by: Metoprolol Tartrate (Lopressor) 25 mg PO TID [facility] Last Admin: 01/24/20 13:59 Dose: 25 mg Documented by: Oxycodone HCl (Roxicodone) 10 mg PO Q6H PRN PRN Reason: PAIN Pantoprazole Sodium (Protonix) 40 mg IVP QDAC [facility] Last Admin: 01/24/20 06:17 Dose: 40 mg Documented by: Potassium Chloride (K-Dur) 20 meq PO DAILYWM [facility] Last Admin: 01/24/20 10:03 Dose: 20 meq Documented by: Sodium Chloride (Normal Saline Flush 0.9%) 10 ml IVP 0100,0900,1700 [facility] Last Admin: 01/24/20 16:28 Dose: 10 ml Documented by: Sodium Chloride (Normal Saline Flush 0.9%) 10 ml IVP PRN PRN PRN Reason: NEEDED PER PROVIDER ORDERS Last Admin: 01/24/20 05:25 Dose: 10 ml Documented by: Sodium Chloride (Normal Saline Flush 0.9%) 20 ml IVP PRN PRN PRN Reason: After Blood Draw Last Admin: 01/23/20 06:13 Dose: 30 ml Documented by: Alpha Lipoic Acid 1 tab PO DAILY 11/12/19 B-Complex with Vitamin C [Super B Complex-Vitamin C] 1 tab PO DAILY 11/12/19 LORazepam [Ativan] 0.5 mg PO Q6HR PRN 11/12/19 Multivit-Min/FA/Lycopen/Lutein [Centrum Silver Men Tablet] 1 tab DAILY 11/12/19 dexAMETHasone [Dexamethasone] 8 mg PO BID PRN 11/12/19 Aspirin EC [Ecotrin] 81 mg PO DAILY 01/18/20 Duloxetine HCl 30 mg PO BID 01/18/20 Oxycodone HCl/Acetaminophen [Oxycodone-Acetaminophen 10-325] 1 tab PO PRN PRN 01/18/20 buPROPion [Wellbutrin Sr] 150 mg PO BID 01/18/20 Objective - Vital Signs/Intake & Output Reviewed Vital Signs: Yes Vital Signs: Vital Signs x48h Temp Pulse Resp BP BP Pulse Ox 01/24/20 16:12 36.8 C 87 20 135/95 H 96 01/24/20 13:59 144/79 H 01/24/20 11:38 36.6 C 80 18 138/92 H 96 Intake & Output: Intake & Output 01/21/20 01/22/20 01/23/20 01/24/20 23:59 23:59 23:59 23:59 Intake Total 2687.269 129 5186 770 Output Total 650 250 Balance 2687.417 -40 1480 520 - Objective General Appearance: positive: Alert, Other (Exhausted appearing. No real change in that since I have met him during the stay) Eyes Bilateral: positive: PERRL, EOMI ENT: positive: No signs of dehydration - Lab Results Fish Bones: 01/24/20 05:28 01/24/20 05:28 Other Labs: Lab Results x24hrs 01/24/20 01/24/20 01/24/20 Range/Units 05:28 05:28 05:28 Hgb 9.5 L (14.0-18.0) g/dL Hct 29.2 L (42.0-52.0) % Sodium 140 (135-145) mmol/L Potassium 4.0 (3.5-5.0) mmol/L Chloride 109 (101-111) mmol/L Carbon Dioxide 25 (21-32) mmol/L Anion Gap 6.0 (6-13) BUN 22 H (6-20) mg/dL Creatinine 2.1 H (0.6-1.2) mg/dL Estimated GFR (MDRD) 31 L (>89) Glucose 93 (70-100) mg/dL Calcium 7.4 L (8.5-10.3) mg/dL Phosphorus 3.1 (2.5-4.6) mg/dL Magnesium 1.6 L (1.7-2.8) mg/dL Last Dose Date 01/24/20 Last Dose Time 10:03 Digoxin 0.7 ng/mL ABX Reporting Has patient been on IV antibiotics over the past 48 hours?: No Assessment/Plan - Problem List (1) Acute renal failure Impression: 01/23: creat 2.1 today so slowly resolving and he is making urine. Still unclear as to what caused the temporary kidney failure. 01/22: creat down to 2.3. Spoke to Mykel that it's down. No transfer for now. He is urinating better as well. 01/21: At this time is this ATN, versus direct toxic effect of an agent we're not aware of. After starting the work-up and speaking to the manager operations, the patient was able to walk to the bathroom, and sit on the toilet and void 560 cc. Repeat BMP in the morning. If creatinine continues to rise, will reach out to [facility] at Dr. Sears's request to have the patient transferred for urgent nephrology evaluation. I did let the patient know as well as his son Mykel. Qualifiers: Acute renal failure type: unspecified Qualified Code(s): N17.9 - Acute kidney failure, unspecified (2) Diarrhea Impression: 01/22: Last BM yesterday. 01/21:add questran to slow it down. Qualifiers: Diarrhea type: functional diarrhea Qualified Code(s): K59.1 - Functional diarrhea (3) Atrial fibrillation with rapid ventricular response Impression: He was started on a diltiazem drip. That is been discontinued especially in view of his low EF on Echo. He has been transitioned to dig and Lopressor. Lopressor is low-dose at 12.5 mg p.o. 3 times daily. Digoxin was 500 mcg 01/18 and started on 0.125 01/19. We have hesitated anticoagulating him in view of his oncology history. I spoke to cardiology at [facility] 01/20. He gets all of his health care there and if he needed to be transferred he wanted to go there. I spoke to Dr. Mustafa resident surgeon at [phone]. We discussed whether he was dehydrated or overloaded. His echocardiogram showed an IVC that was normal. He does not have JVD or edema so I do not think he is overloaded. If anything he may be slightly dehydrated. Dr. Mustafa asked us to make sure the potassium and magnesium was supplemented appropriately. They would be glad to see him in the outpatient setting once he was discharged. Transferred to Med surg 01/19 and on floor with tele. Metoprolol increased to 25 tid on 01/20 and unclear response. Pulse from 05:30 and 08:30 today are the only ones recorded and they are still 110-120. 01/21: Continue Digoxin 0.125 and metoprolol 25 tid. Assess rate response to meds and see if we can keep his pulse below 110 and then dc. 01/22: Orthostatics recorded this morning show blood pressure 121/91 with a pulse of 75 supine. Sitting 124/85 with a heart rate of 109. Standing is 93/57 with a heart rate of 110. He tends to be 76-80 when he sitting down. Will give 500 cc fluid bolus. See below. (3) Congestive heart failure Qualifiers: Heart failure type: systolic Heart failure chronicity: acute Qualified Code(s): I50.21 - Acute systolic (congestive) heart failure Assessment/Plan: Last Echo was done at [facility] in October 2019, it showed normal LVEF of 60%. Echo done 01/17 and ordered to evaluate for endocarditis, shows EF of 35 to 40%. global hypokinesis. His troponins were negative, he ruled out for an PA. 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 Further new management of this will be needed as an outpt (stress testing and Echo follow-ups by a Director Shopper Marketing). I've spoken to Dr. Mustafa at [facility] 01/20. Beta-blockers and Dig for rate control were chosen over Ca-vandana. Careful IV fluid rehydration for his MIKHAIL and hypovolemia, follow I's and O's. In spite of Mg oxide 400 bid, his mag is low 01/21: supplement w IV mag. 01/22: Some evidence of orthostatic hypotension. Difficult to assess dryness versus fluid overload. At this time his exam does not show fluid overload, and his pulse and pressure drop when he stands.500 cc fluid bolus. Mg 1.8 and K 3.9. Will reassess after fluid bolus. If standing and exertional tachycardia improves then his fluid status may be stable. If still continues to be tachycardic will give another 500 cc bolus. (4) Prostate cancer metastatic to bone Assessment/Plan: As per Hx. His Oncologist is at [facility]. I did call Dr. Cuevas's environmental services director Josy @ [facility] at [phone] to update them, there are no new suggestions for him right now. (5) Anemia Qualifiers: Anemia type: other cause Other causes of anemia: antineoplastic chemotherapy Qualified Code(s): D64.81 - Anemia due to antineoplastic chemotherapy; T45.1X5A - Adverse effect of antineoplastic and immunosuppressive drugs, initial encounter Assessment/Plan: Due to his cancer and his chemo. Follow CBC daily, transfuse if <7 or if <8 and SOB. he is 9.4 grams today.
[2020-01-25] MEDS: SODIUM CHLORIDE FLUSH 0.9% 10 ML SYRINGE IVP SCH ×2 (01:02→08:22)
[2020-01-25] MEDS: METOPROLOL TARTRATE 25 MG TABLET PO SCH ×2 (05:56→13:23)
[2020-01-25] MEDS: PANTOPRAZOLE 40 MG VIAL IVP SCH (06:41)
[2020-01-25] MEDS: SODIUM CHLORIDE FLUSH 0.9% 10 ML SYRINGE IVP PRN ×2 (06:41)
[2020-01-25 08:57] LABS: CALCIUM 7.1 mg/dL (8.5-10.3); MAGNESIUM 1.5 mg/dL (1.7-2.8); PHOSPHORUS 3.2 mg/dL (2.5-4.6)
[2020-01-25] MEDS: MAGNESIUM OXIDE 400 MG TABLET PO SCH (09:03)
[2020-01-25] MEDS: POTASSIUM CHLORIDE 20 MEQ TABLET PO SCH (09:03)
[2020-01-25] MEDS: DULoxetine 30 MG CAPSULE PO SCH (09:04)
[2020-01-25] MEDS: ASPIRIN EC 81 MG TABLET PO SCH (09:04)
[2020-01-25] MEDS: DIGOXIN 125 MCG TABLET PO SCH (09:04)
[2020-01-25] MEDS: buPROPion SR 150 MG TABLET PO SCH (09:04)
[2020-01-25] MEDS: CHOLESTYRAMINE 4 GM PACKET PO SCH (09:05)
--- NOTE | 2020-01-25 14:58 | Discharge Plan ---
Discharge Plan Problem Reviewed?: Yes Disposition: Home Health Service Condition: Stable Prescriptions: Digoxin [Lanoxin] 125 mcg PO DAILY #30 tablet Metoprolol Tartrate [Lopressor] 25 mg PO TID #90 tablet Magnesium Oxide [Mag Ox] 400 mg PO DAILYWM #60 tablet Diet: Regular Activity Restrictions: Activity as Tolerated Shower Restrictions: No Driving Restrictions: No Instruction Topics: Metoprolol tablets, Digoxin tablets or capsules, Edema Pulmonary, Heart Failure Meds Control, Heart Failure, Potassium, Atrial Fibrillation Health Concerns: For the last few since the last time he received chemotherapy, you have been felt to be "dehydrated" and were being seen by oncology and getting regular IV fluid infusions to hydrate you. It is been a rough few weeks since that last treatment. He began having more and more dizziness, severe weakness. You came to our emergency room for that and were found to be in new onset atrial fibrillation with a rapid pulse rate. Your pulse rate was as high as 1 50-1 60. You were also found to be in new congestive heart failure. The left side of your heart, the thickness muscle you have, is moderately to severely impaired globally. Your ejection fraction is 30 to 40%. This is a new diagnosis for you. I have spoken to your oncologist office and updated them. I also spoke to the tower foreman vacation guide for [facility] to make sure they do not want to accept you in transfer. At this time they felt that we just needed to slow down your heart rate, make sure that your potassium and magnesium are stable, and consider you for treatment with other medicines such as Lasix, beta vandana, and AMY inhibitor. You also went into temporary kidney failure. Unc lear why since her blood pressure was not low enough to do so. You did not receive any medications that would put you into kidney failure. Nevertheless, temporarily, you stop making urine for a couple of days and your kidney function test became worse. They gradually got better on their own. Plan of Treatment: 1. He will be sent home on metoprolol. Usually it is a twice a day drug, but we are finding your heart rate difficult to control and as such will be sent home on 3 times a day. Another drug to control your heart rate is digoxin. You will be going home on that. 2. It is difficult to give you too many IV fluids to hydrate you because you do have congestive heart failure. I have to balance hydrating you versus giving you too much fluid and making your heart pump worked too hard. Make sure you drink under a liter of fluid a day. Do not skip that. That includes all your soda, water, coffee, juice etc. 3. I will be starting you on AMY inhibitor medication to help the congestive heart failure. That is called lisinopril. You will start on 2.5 mg a day. When you see your tower foreman they may increase that. 4. I have not given you diuretics. You are very prone to drop in your blood pressure and increase in your heart rate when you are dehydrated. As you stabilize with your fluid status, the tower foreman may also start you on Lasix. Care Goals: To control your congestive heart failure, control your heart rate, so that you are no longer short of breath or fatigue. Assessment: Patient understands goals and treatment. Anxious to go home. No Smoking: If you smoke, Please STOP! Call for help. Follow-up with: Provider,Other [Primary Care Provider] - Sheeba Cuevas MD [Physician No Access] -
--- NOTE | 2020-01-25 16:42 | DISCHARGE SUMMARY ---
"Discharge Summary Admit Date: 01/17/20 Discharge Date: 01/25/20 Discharging Provider: Kimmie Haddad MD Code Status: Attempt Resuscitation Condition at Discharge: Stable Discharge Disposition: Home Health Service - DIAGNOSES Discharge Diagnoses with Status of Each Condition: 1. Acute systolic heart failure 2. Atrial fibrillation with rapid ventricular response 3. Acute renal failure 4. Diarrhea 5. Orthostatic hypotension 6. Prostate cancer metastatic to bone 7. 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. His oncologist is Dr. Cuevas. He presented to the ED today with complaint of feeling weak and dizzy. He normally experiences the symptoms after chemotherapy however it has persisted and become worse over the past few days so he asked his to bring him to the emergency room. He is frequently dehydrated and often goes to [facility] for IV hydration. He was scheduled to see his oncologist tomorrow January 18, 2020. In the ED he was found to have an irregularly irregular rhythm with a heart rate in the 150s. He was initially given a dose of IV diltiazem which improved his heart rate but then slowly increased back to the 150s. As a result he was started on diltiazem drip and presented for admission. On further questioning at bedside he denies chest pain, dyspnea, abdominal pain, nausea or vomiting. He was also found to have a temperature of 39 C and white blood cell count of 3.7. He does not have any wounds. However his arms are extensively covered with bruises. He has mild crackles in the left lung bases. His chest x-ray showed cardiomegaly. He denied increased urinary frequency or pain with urination. His BNP was 662. - Past Medical History Cardiovascular: reports: Hypertension, Peripheral Vascular Disease : reports: Renal insuffiency, Kidney stones Psych: reports: Depression Musculoskeletal: reports: Osteoarthritis MRSA Hx?: No Other Past Medical History: Metastatic Prostate cancer, Hx of melanoma, Basal cell carcinomaObesity, Gout - Past Surgical History General: reports: Other (Umbilical hernia repair) HEENT: reports: Other (Deviated septum repair) Other past surgical history: Prostate surgery - CONSULTS | PROCEDURES Procedures: 1. Chest x-ray. Mild cardiomegaly seen with prominence of central pulmonary vasculature. No effusions or pneumothorax. No pulmonary consolidation. 2. Retroperitoneal ultrasound for renal failure. Renal atrophy without obstruction. Ill-defined hypoechogenicity in the right kidney. Not well characterized and could be artifact. Would recommend CT in the outpatient setting if clinical concern is still present. 3. Echocardiogram showed underlying rhythm that was atrial fibrillation with RVR. Mild left ventricular enlargement. Overall left ventricular systolic function moderately to severely globally impaired with an ejection fraction of 30 to 40%. Right ventricle normal in size and function. Biatrial enlargement. No significant valvular dysfunction. 4. Blood cultures in 1 of 4 bottles grew Staphylococcus hominis species on January 22, with blood cultures being drawn January 16. [place] to be contaminant. - HOSPITAL COURSE Hospital Course: The patient was placed on a diltiazem drip in the ICU. Because of his low ejection fraction he was transitioned to beta-blockers and digoxin. Rate control was difficult to achieve in spite of this. He did not have JVD or edema and was not felt to be fluid overloaded in spite of the congestive heart failure from the A. fib with RVR and global hypokinesis. He continued to be orthostatic during his stay and spite of frequent fluid boluses. The drop in ejection fr action is new for him. In October 2019 echocardiogram showed an ejection fraction of 60%. We did speak to [facility] cardiology who is front desk specialist. They also concluded with beta-blockers and digoxin for rate control to be used over calcium channel vandana. Be careful with IV fluid for hydration and make sure that his magnesium and potassium were supplemented we also spoke to his oncologist at [facility]. Rather we spoke to his triage nurse. There were no new suggestions required by him once the message was relayed. Anemia was monitored during his stay. He did not need any transfusions. At discharge he was 9.4 g of hemoglobin. Acute renal failure did occur. Unknown reasons other than pos sible hypotensive, orthostatic reaction. We did speak to Dr. Sears, nephrology, and he did recommend transfer to [facility] if the patient's creatinine did not turn the corner. When his creatinine began responding to small fluid boluses, we opted not to transfer. He will need to see nephrology in the outpatient setting. Ultrasound showed no obstruction. Diarrhea was a problem during his stay. Questran was added to slow it down. There was success with that. The patient was discharged in stable condition, but still borderline tachycardic atrial fibrillation that at times of go above 110. He was also still fatigued but no longer orthostatic. At discharge supine blood pressure was 143/103. Pulse was 115. Sitting up his blood pressure was 139/69. Pulse was 123. Standing blood pressure was 152/125 with heart rate 132. On the day of discharge pulse varied between 83-115. He was 96% saturated on room air. Respiratory rate was 20. Temperature was 36.8. He was a very fatigued appearing elderly gentleman. That being said, he was much less fatigued appearing today than he had been his entire stay. He was very anxious to go home. He was 5 foot 10 inches tall weighing 109.5 kg. Pale. No JVD. Clear lungs. In a regular rate and rhythm that at times could be tachycardic. Abdomen soft and nontender. No edema was present. He is hard of hearing, has ecchymosis on his arms from IVs. Case was discussed with his son. Greater than 30 minutes were spent coordinating discharge. At discharge he will need to follow-up with his oncologist, get an appoint with a material lister, and an appointment with the corrugated fastener driver. - ALLERGIES Allergies/Adverse Reactions: Allergies Allergy/AdvReac Type Severity Reaction Status Date / Time Penicillins Allergy Rash Verified 01/17/20 18:59 oxycodone HCl * AdvReac Dizziness Verified 01/17/20 18:59 [From OxyContin] - MEDICATIONS Home Medications: Ambulatory Orders Medication Instructions Recorded Confirmed Alpha Lipoic Acid 1 tab PO DAILY 11/12/19 01/18/20 B-Complex with Vitamin C [Super B 1 tab PO DAILY 11/12/19 01/18/20 Complex-Vitamin C] LORazepam [Ativan] 0.5 mg PO Q6HR PRN 11/12/19 01/18/20 Multivit-Min/FA/Lycopen/Lutein 1 tab DAILY 11/12/19 01/18/20 [Centrum Silver Men Tablet] dexAMETHasone [Dexamethasone] 8 mg PO BID PRN 11/12/19 01/18/20 Aspirin EC [Ecotrin] 81 mg PO DAILY 01/18/20 01/18/20 Duloxetine HCl 30 mg PO BID 01/18/20 01/18/20 Oxycodone HCl/Acetaminophen 1 tab PO PRN PRN 01/18/20 01/18/20 [Oxycodone-Acetaminophen 10-325] buPROPion [Wellbutrin Sr] 150 mg PO BID 01/18/20 01/18/20 Digoxin [Lanoxin] 125 mcg PO DAILY #30 tablet 01/25/20 Loperamide [Imodium] 2 mg PO QID PRN capsule 01/25/20 Magnesium Oxide [Mag Ox] 400 mg PO DAILYWM #60 tablet 01/25/20 Metoprolol Tartrate [Lopressor] 25 mg PO TID #90 tablet 01/25/20 lisinopriL [Lisinopril] 2.5 mg PO DAILY #30 tablet 01/25/20 - LABS Result Diagrams: 01/24/20 05:28 01/25/20 08:33"
[2020-01-25 17:26] VITALS: BP 121/81
== END 2020-01-25 17:00 | disposition home health service (06) | DRG 291 ==
LOC: ED 18:44 → ICU 20:17 → MS2 01-20 08:55
PROVIDERS: ADMIT Internal Medicine; ATTEND Specialist
DX: I11.0 Hypertensive heart disease with heart failure (principal); I50.21 Acute systolic (congestive) heart failure; I50.9 Heart failure, unspecified; N17.9 Acute kidney failure, unspecified; C79.51 Secondary malignant neoplasm of bone; I48.91 Unspecified atrial fibrillation; C61 Malignant neoplasm of prostate; K59.1 Functional diarrhea; I95.1 Orthostatic hypotension; E86.1 Hypovolemia; I43 Cardiomyopathy in diseases classified elsewhere; D64.81 Anemia due to antineoplastic chemotherapy; T45.1X5A Adverse effect of antineoplastic and immunosuppressive drugs, initial encounter; R50.9 Fever, unspecified; F32.9 Major depressive disorder, single episode, unspecified; I73.9 Peripheral vascular disease, unspecified; E66.9 Obesity, unspecified; Z68.34 Body mass index [BMI] 34.0-34.9, adult; S40.022D Contusion of left upper arm, subsequent encounter; S40.021D Contusion of right upper arm, subsequent encounter; X58.XXXD Exposure to other specified factors, subsequent encounter; Z74.09 Other reduced mobility; Z79.52 Long term (current) use of systemic steroids; Z79.82 Long term (current) use of aspirin; Z79.899 Other long term (current) drug therapy; Z85.820 Personal history of malignant melanoma of skin; Z85.828 Personal history of other malignant neoplasm of skin
CPT/HCPCS: 36415; 71045; 76770; 80048; 80053; 80162; 81001; 82040; 82330; 82533; 83605; 83690; 83735; 83880; 84100; 84443; 84484; 85014; 85018; 85025; 85610; 87040; 87077; 87150; 87181; 87493; 93005; 93306; 96365; 96375; 99284; 99285; A9270; J3370; J7040; J7120; 87086

== ENCOUNTER 2020-09-29 13:30 | Outpatient (CLI) | payer MEDICARE, OTHER ==
--- NOTE | 2020-09-29 15:54 | CONSULTATION NOTE ---
Palliative Care Consultation - Referral Referring Provider: Dr. Jerel Cuevas Time of Visit: 9577-4824 Referral setting: Home Referral Reason: Met Prostate CA/Orthostatic hypotension/Fatigue - Information Sources Records reviewed: Previous records reviewed History/Review of Systems obtained from: Patient, Family ( Randa at visit) Exam limitations: No limitations - History of Present Illness Brief History of Present Illness: This is a 70-year-old gentleman who has metastatic prostate cancer, who I am seeing in the home setting. He was started 04/22 on Zytiga originally at 1000 mg, now is down to 250 with methylprednisone 5 mg twice daily. He has been having genetic testing looking for targeted therapy, unfortunately at this point in time have not identified one. They are going to look further on his original prostate cancer sample from [place], for [facility], [place] [facility] to see if there is a target or immunotherapy that he would be a candidate for. He does have some anxiety as his PSA has continued to increase, his most recent one on 08/22/2020 was almost 1500, up from the previous month from 587. His CT scan is showed only bone mets at this point. Previous to his Zytiga, patient was on chemotherapy he did have hospitalization as a result of side effects, and experienced atrial for up with RVR, acute kidney failure, acute systolic failure, and at that time was shown to have an ejection fraction of 30 to 40%. He said he had a recent echo with improved function, has seen the shine worker in the last 2 weeks. Patient's original diagnosis was back in November 2015, at that point time he had a TURP. He has been on hormone therapy, Doxil Taxol, and cabazitaxel over the last few years. Patient's most distressing quality of life issue, has been his muscle wasting, which can be attributed certainly to his hormonal treatment, as well as he has had a 90 pound weight loss over the last couple years, and is on steroids. Patient reports actually severe dizziness with standing, which precludes him from being able to cook, and participate in activities he likes. On examination, he does have orthostatic hypotension, does not appear dehydrated, and also complains of persistent fatigue as well as night sweats. Medical/Surgical History - Past Medical History Cardiovascular: reports: Congestive heart failure, Hypertension, Peripheral Vascular Disease Respiratory: reports: None, Sleep apnea (improved with weight loss) Neuro: None, Peripheral neuropathy (unknown etiology; does NOT have diabeter) Neuro: reports: Multiple sclerosis (s) Endocrine/Autoimmune: reports: None GI: reports: None : reports: Renal insuffiency, Kidney stones Psych: reports: Depression Musculoskeletal: reports: Osteoarthritis, Fatigue, Chronic back pain Derm: reports: None MRSA Hx?: No - Past Surgical History General: reports: Other (Umbilical hernia repair) HEENT: reports: Other (Deviated septum repair) - Substance History Use: Uses substance without health or social issues: Tobacco (hx), Alcohol (rare) Social History - Living Situation Living arrangement: At home Living Situation: With spouse/s.o., With family Support System: Patient lives with his jose Randa, they have moved up here from [place] to be closer to family. When he had increased problems with hospitalization, was wheelchair-bound, their son Mio came to live with them to help. He has slowly improved and now is independent in most of his ADLs, Mio is moving back to [place] to get . Patient has been in [facility], has with the pandemic a course been limited as far as support from [employer]. Family History - Family History Family History: Mother: , CAD (heart failure 95), Father: , Alzheimer's Disease (father 82), Cancer (throat cancer 58), Brother: , Cancer Medications/Allergies - Medications Home Medications: Ambulatory Orders Medication Instructions Recorded Confirmed Alpha Lipoic Acid 50 tab PO DAILY 11/12/19 09/29/20 Multivit-Min/FA/Lycopen/Lutein 1 tab DAILY 11/12/19 09/29/20 [Centrum Silver Men Tablet] Duloxetine HCl 30 mg PO DAILY 01/18/20 09/29/20 buPROPion [Wellbutrin Sr] 150 mg PO BID 01/18/20 09/29/20 Loperamide [Imodium] 2 mg PO QID PRN capsule 01/25/20 09/29/20 Abiraterone Acetate 250 mg PO DAILY 09/29/20 09/29/20 Cholecalciferol (Vitamin D3) 1,000 unit PO DAILY 09/29/20 09/29/20 [Vitamin D3] Digoxin [Lanoxin] 125 mcg PO .Q 48 HOURS 09/29/20 09/29/20 Mecobalamin [B12 Active] 100 mcg PO DAILY 09/29/20 09/29/20 Methylprednisolone [Medrol Dose 4 mg PO BID 09/29/20 09/29/20 Pack] Metoprolol Succinate [Toprol Xl] 25 mg PO DAILY 09/29/20 09/29/20 Rivaroxaban [Xarelto] 15 mg PO DAILY 09/29/20 09/29/20 Rosuvastatin Calcium [Crestor] 5 mg PO QPM 09/29/20 09/29/20 Spironolactone [Aldactone] 12.5 mg PO DAILY 09/29/20 09/29/20 lisinopriL [Lisinopril] 2.5 mg PO QPM 09/29/20 09/29/20 - Allergies Allergies/Adverse Reactions: Allergies Allergy/AdvReac Type Severity Reaction Status Date / Time Penicillins Allergy Rash Verified 01/17/20 18:59 oxycodone HCl * AdvReac Dizziness Verified 01/17/20 18:59 [From OxyContin] Review of Systems - Constitutional Constitutional: reports: Fatigue (persistent) - Eyes Eyes: reports: Vision loss, Corrective lenses - Ears, Nose & Throat Ears, Nose & Throat: reports: Hearing loss, Tinnitus, Hoarseness - Cardiovascular Cardiovascular: reports: Lightheadedness (worsening), Exertional dyspnea, Decr. exercise tolerance. denies: Chest pain, Edema - Respiratory Respiratory: reports: SOB with exertion. denies: Cough, SOB at rest - Gastrointestinal Gastrointestinal: reports: Abdominal distention (mild), Poor appetite, Early satiety. denies: Nausea, Reflux/heartburn - Musculoskeletal Musculoskeletal: reports: Back pain (mild), Muscle aches, Stiffness, Muscle weakness, Assistive devices (uses cane), Other (poor balance) - Integumentary Integumentary: reports: Dryness, Other (brusing on forearms/extensive) - Neurological Neurological: reports: General weakness, Dizziness, Numbness (persistent/mild tingling), Abnormal gait - Psychiatric Psychiatric: reports: Depression, Anxiety. denies: Suicidal - Endocrine Endocrine: denies: Diabetes type 2 - Hematologic/Lymphatic Hematologic/Lymph: reports: Anemia (11.8), Bruising, Bleeding tendencies. denies: Recurrent infections - All Other Systems All Other Systems: reports: Reviewed and negative Physical Exam - Vital Signs Temperature: 97.3 C Pulse Rate: 62 (standing 68) Respiratory Rate: 18 O2 Saturation: 96 (ra @ rest) Blood Pressure: 112/42 (72/30 after 2 min standing; needed to sit down) - Physical Exam General Appearance: positive: No acute distress, Alert Eyes Bilateral: positive: Normal inspection ENT: positive: No signs of dehydration Neck: positive: No JVD, Trachea midline Cardiovascular: positive: Regular rate & rhythm Respiratory: positive: No respiratory distress, Breath sounds nml. negative: Wheezes, Rales, Rhonchi Abdomen: positive: Soft, Nml bowel sounds, Obese Skin: positive: Pallor, Dryness, Other (brusing forearms/thinned skin) Extremities: positive: No pedal edema Neurologic/Psychiatric: positive: Oriented x3, Mood/affect nml Palliative Care - POLST Patient has POLST: No Pain: Pain improved, Location (low back; no meds needed currently; does have sonal mets), Severity (2/10) Tiredness/Fatigue: Severe (7-10) Drowsiness/Sedation: Moderate (4-6) Nausea: None Anorexia: Moderate (4-6), Weight loss (Patient has had 90 pound weight loss over last couple of years; currently stable at 209) Dyspnea: Severe (7-10) Depression: Severe (7-10) (patient describes previous depression; has been to psychologist; had worsened with usp; had added duloxetine with of dog 2-3 years ago; had exacerbated depression; doing better now) Anxiety: Moderate (4-6) Feelings of wellbeing/Perceived Quality of Life: Fair, Acceptable, Improved Sleep: Sleeps well Constipation: No, Comment (soft regular BMs/ on diarrhea) Performance Status: Patient is limited by muscle wasting/extremity weakness. This is been progressive over the last year, also impacted by his severe dizziness on standing. Patient has had history of falls x3. Patient is able to manage his ADLs, and walk around house. - Palliative Care Discussion: Patient does recognize he has serious illness, stage IV disease. He is somewhat anxious about his increasing PSA, and what this means as far as his prognosis and quality of life. He denies significant anxiety, he reports he has always approached it as "it is what it is". He does have appropriate depressive feelings, does not feel like his depression is exacerbated at this point in time. He reports he has not had his davis community available with the pandemic, and has been quite isolated. Their son has been living with him, but is getting ready to leave. His short-term goals are to get stronger, be able to walk more, he would very much like to cook again, currently is now limited by his dizziness. Patient does understand he is on limited options as far as his treatment with his prostate cancer, he is hoping there will be a targeted or immunotherapy available, is awaiting outcome of testing on his original tumor. He has previously as far as coping, found it very helpful to be connected to his davis community, his daily devotions, with his move he has had less connections here. We did explore ways to bring that back into his support network. His is quite supportive, she herself is undergone cancer. They do have a daughter in [place].Patient does have a very extensive advanced care planning document, he reports he is not afraid of dying, we did discuss is just difficult at some point we will talk more about defining his advance care planning goals after rapport has been built Results - Lab Results Lab results reviewed: Yes Lab and Imaging Results: Patient's most recent labs on 322 from oncology potassium is 4.8, BUN 19.6, creatinine 1.1, glucose 89, his total protein was low at 5.6 his albumin was 4.0, his hemoglobin was 11.8 hematocrit 36.2 platelets 144. Impression and Recommendations - Palliative Care Impression: This is a 70-year-old gentleman who presents with metastatic prostate cancer to the bones, currently receiving Zytiga with rising PSA. Patient also has comorbidities of atrial fib newly diagnosed with his hospitalization in January of 2020, currently on Xarelto. Patient presents today with symptoms of severe hypotension, dizziness, putting him at high risk for falls. Patient has had weight loss, functional decline, and persistent fatigue. Palliative care establishing with patient for quality of life issues, and advanced care planning, and anticipatory guidance Recommendations/Counseling Done: 1. Dizziness. This is most likely multifactorial, patient does present with severe hypotension, without symptoms of dehydration. Patient also has known neuropathy, and is on multiple cardiac meds. Did call and speak with Dr. Srinivasan's office, regarding findings for recommended adjustments to medications. Information relayed to Randa his , who feels Mediset's. Will discontinue spironolactone, decrease metoprolol succinate 25 mg to 1 tab in a.m., and move the lisinopril 2.5 mg to evening. They have been instructed to do daily blood pressures and monitor for improving symptoms or increased lower extremity edema. 2. Pain of neoplastic origin. Patient currently without any significant pain despite bony mets. He is on methylprednisone 4 mg twice daily with his site take, suspect this is helping control discomfort. He does have intermittent pressure in his lower back, but not to a level he needs to medicate. We will continue to monitor. Patient has not received any radiation in the past, this also might be an option in the future. 3. Anorexia. This is multifactorial, suspect if patient were able to cook and participate more in food prep this may help. Goal is to improve his dizziness, they are arranging for Meals on Wheels while he is gone. 4. Generalized weakness. Patient does present with poor quad strength, upper and lower extremity muscle wasting, consistent with weight loss, hormonal treatment, and steroid use. Counseling provided regarding strengthening, encouraged to get a peddler, counseling provided for progressive program, as well as encouraged ambulation with walking sticks for balance, cane puts him at high risk for falls. Did recommend [facility] because of patient's high risk for falls and sequela as he is on Xarelto. Discussed goals would be for him to get to a place he feels comfortable for outpatient referral for strengthening. 5. Depression. Patient would like to do some medication de-escalation, had duloxetine increased and added when loss of dog. That was 2 or 3 years ago, is feels like he is doing better, discussed other things to integrate into his care plan, including restarting making connections with his davis and davis community, going out for rides and [place], we will go ahead and decrease duloxetine from 30 mg twice daily to daily. This too may help decrease persistent dizziness. 6. Advanced care planning. Patient does have quite a robust advance care planning document, does not have a POLST. Will explore at next visit, as his is going out of town and would be helpful to have him placed physically with [facility]. Explored some of his coping, approach to his illness, what brings him giselle, and setting rapport. 75 minutes with greater than 50% of this done in counseling regarding pain and symptom management, coordination of care with cardiology, and anticipatory guidance.
== END 2020-09-29 13:31 | disposition home or self-care (01) ==
LOC: PC 13:30
PROVIDERS: ATTEND Nurse Practitioner Adult Health
DX: Z51.5 Encounter for palliative care (principal); R42 Dizziness and giddiness; I95.1 Orthostatic hypotension; G89.3 Neoplasm related pain (acute) (chronic); C61 Malignant neoplasm of prostate; C79.51 Secondary malignant neoplasm of bone; C79.9 Secondary malignant neoplasm of unspecified site; R63.0 Anorexia; R53.1 Weakness; F32.9 Major depressive disorder, single episode, unspecified; G62.9 Polyneuropathy, unspecified
CPT/HCPCS: 99345

== ENCOUNTER 2020-10-13 14:00 | Outpatient (CLI) | payer MEDICARE, OTHER ==
--- NOTE | 2020-10-13 18:22 | CONSULTATION NOTE ---
Palliative Care Follow Up - Referral Referring Provider: Dr. Sheeba Cuevas Time of Visit: [id number] Referral setting: Home Referral Reason: Fatigue/Depression/Met Prostate CA/Goals of Care - Information Sources Records reviewed: Previous records reviewed History/Review of Systems obtained from: Patient, Family ( Randa at visit) Exam limitations: No limitations - History of Present Illness Update Brief HPI Update: This is a jose 70-year-old gentleman with metastatic prostate cancer, who is currently on Zytiga 2050 mg in the a.m., and methylprednisone 5 mg twice daily. His original diagnosis was in November 2015, at that time he had a TURP, he continues on Zometa as well as hormone therapy. He has had chemotherapy in the past, with significant side effects, he also has had some difficulty with atrial fib. When I saw him 2 weeks ago, he had severe dizziness, with orthostatic hypotension, I did speak with Gwen López's office, with adjustments of medications. These have improved his dizziness it somewhat, he still has some difficulty with sustained standing, but blood pressures today are 122/64 and s tanding 104/62. His blood pressures overall have still been on the lower side ranging from 93-123/49-57, with a pulse of 65-73. He has had some weight gain with the discontinuation of spironolactone, he usually runs 209 to 212, currently today was 214, only has mild trace edema in his feet, lungs are clear, no other signs of fluid overload. He continues to be quite weak, has had weight loss and muscle wasting as a result of his steroids and treatment. He did trial the peddler, and pulled his left calf, this is healing, is willing to try it again. He is anemic at 11.7, also has peripheral neuropathy, multiple things adding to his underlying deconditioning as well as prolonged sedentary status secondary to his health problems over the last several months. His is leaving for a week to help with his sons move. They have put [facility] in place, Meals on Wheels, frequent checks and their daughter will be coming for a couple days. In the context of this, we discussed need to have a POLST, and complete her goals of care conversation. Past Medical History: Arthritis, hypertension, hypercholesteremia, peripheral neuropathy, PTSD, recurrent major depressive order, PVD, CKD stage III, atrial fib, DM type II,Gout, hearing loss, melanoma, obesity,Patient original diagnosis 2016, with TURP, 2018 diagnosed with metastatic disease left fifth rib, T12 vertebral body, left sacrum, left femoral head and left femoral lesser trochanter Social History - Living Situation Living arrangement: At home Living Situation: With spouse/s.o., With family Support System: Patient lives with his jose Randa, their son Mio came to live with [facility] temporarily, he is now moving on to [place]. Patient is now improved and independent most of his ADLs. 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 Medications/Allergies - Medications Home Medications: Ambulatory Orders Medication Instructions Recorded Confirmed Alpha Lipoic Acid 50 tab PO DAILY 11/12/19 09/29/20 Multivit-Min/FA/Lycopen/Lutein 1 tab DAILY 11/12/19 09/29/20 [Centrum Silver Men Tablet] Duloxetine HCl 30 mg PO DAILY 01/18/20 09/29/20 buPROPion [Wellbutrin Sr] 150 mg PO BID 01/18/20 09/29/20 Loperamide [Imodium] 2 mg PO QID PRN capsule 01/25/20 09/29/20 Abiraterone Acetate 250 mg PO DAILY 09/29/20 09/29/20 Cholecalciferol (Vitamin D3) 1,000 unit PO DAILY 09/29/20 09/29/20 [Vitamin D3] Digoxin [Lanoxin] 125 mcg PO .Q 48 HOURS 09/29/20 09/29/20 Mecobalamin [B12 Active] 100 mcg PO DAILY 09/29/20 09/29/20 Methylprednisolone [Medrol Dose 4 mg PO BID 09/29/20 09/29/20 Pack] Metoprolol Succinate [Toprol Xl] 25 mg PO DAILY 09/29/20 09/29/20 Rivaroxaban [Xarelto] 15 mg PO DAILY 09/29/20 09/29/20 Rosuvastatin Calcium [Crestor] 5 mg PO QPM 09/29/20 09/29/20 Spironolactone [Aldactone] 12.5 mg PO DAILY 09/29/20 09/29/20 lisinopriL [Lisinopril] 2.5 mg PO QPM 09/29/20 09/29/20 - Allergies Allergies/Adverse Reactions: Allergies Allergy/AdvReac Type Severity Reaction Status Date / Time Penicillins Allergy Rash Verified 01/17/20 18:59 oxycodone HCl * AdvReac Dizziness Verified 01/17/20 18:59 [From OxyContin] Review of Systems - Constitutional Constitutional: reports: Fatigue (persistent) - Eyes Eyes: reports: Vision loss, Corrective lenses - Ears, Nose & Throat Ears, Nose & Throat: reports: Hearing loss, Tinnitus, Hoarseness - Cardiovascular Cardiovascular: reports: Lightheadedness (worsening), Exertional dyspnea, Decr. exercise tolerance. denies: Chest pain, Edema - Respiratory Respiratory: reports: SOB with exertion. denies: Cough, SOB at rest - Gastrointestinal Gastrointestinal: reports: Abdominal distention (mild), Poor appetite, Early satiety. denies: Nausea, Reflux/heartburn - Musculoskeletal Musculoskeletal: reports: Back pain (mild), Muscle aches, Stiffness, Muscle weakness, Assistive devices (uses cane), Other (poor balance) - Integumentary Integumentary: reports: Dryness, Other (brusing on forearms/extensive) - Neurological Neurological: reports: General weakness, Dizziness, Numbness (persistent/mild tingling), Abnormal gait - Psychiatric Psychiatric: reports: Depression, Anxiety. denies: Suicidal - Hematologic/Lymphatic Hematologic/Lymph: reports: Anemia (11.8), Bruising, Bleeding tendencies. denies: Recurrent infections - All Other Systems All Other Systems: reports: Reviewed and negative Physical Exam - Vital Signs Pulse Rate: 61 Respiratory Rate: 18 O2 Saturation: 98 (ra @ rest) Blood Pressure: 122/64 (sitting; 104/62 standing) - Physical Exam General Appearance: positive: No acute distress, Alert Eyes Bilateral: positive: Normal inspection ENT: positive: No signs of dehydration Neck: positive: No JVD, Trachea midline Cardiovascular: positive: Regular rate & rhythm Respiratory: positive: No respiratory distress, Breath sounds nml. negative: Wheezes, Rales, Rhonchi Abdomen: positive: Soft, Nml bowel sounds, Obese Skin: positive: Pallor, Dryness, Other (brusing forearms/thinned skin) Extremities: positive: No pedal edema Neurologic/Psychiatric: positive: Oriented x3, Mood/affect nml Palliative Care - POLST Patient has POLST: Yes POLST Status: DNR, Selective Treatment (completed at visit) Pain: Pain unchanged, Location (back pain; controlled) Tiredness/Fatigue: Moderate (4-6) Drowsiness/Sedation: Mild (1-3) Nausea: None Anorexia: Mild (1-3) Dyspnea: Mild (1-3) Depression: Moderate (4-6) Anxiety: Moderate (4-6) Feelings of wellbeing/Perceived Quality of Life: Good, Acceptable, Improved Sleep: Variable sleep pattern Constipation: Yes, Intermittent constipation Performance Status: Patient remains quite weak, is ambulatory in home, is able to manage his own ADLs, does have balance problems and at high risk for falls. Does have muscle wasting arms and legs, is interested in improving his overall functional status. - Palliative Care Discussion: Patient does recognize the seriousness of his illness, stage IV Prostate cancer. He is quite pleased his PSA has decreased with his last visit, his short-term goals continue to be to get stronger, able to walk more, he is had improved dizziness so is feeling somewhat better. We did discuss with his leaving, and [facility], given his advanced care directives, would like to complete and follow-up regarding patient's wishes with POLST. Did engage goals of care conversation with patient and , patient is a DN AR/DNI, is continued interested in treatment and treating reversible conditions, we did discuss though at end-of-life he would like to be at home with family support, his and is agreement with this. We did discuss further about what gives him giselle and comfort, patient is learning Tajik, likes to read, is looking forward to making reconnection with his mu-ism. His son will be leaving, this is a main source of support for him, will need monitoring for exacerbation of depression. Results - Lab Results Lab results reviewed: Yes Lab and Imaging Results: PSA has decreased from 14 61-9 93, potassium 4.2, kidney function within good range, protein is low at 5.7, continues it anemia 11.7 hematocrit 35.9 and platelets 124 Impression and Recommendations - Palliative Care Impression: This is a 70-year-old gentleman who presents with metastatic prostate cancer to the bones, currently receiving Zytiga with improvement a PSA. Patient also has comorbidities of newly diagnosed atrial fib, did adjust medications with last visit secondary to severe hypotension, some improvement in dizziness, and mild functional decline. He continues with persistent fatigue, he will be on his own for a week while is traveling. Palliative care establishing with patient with focus on quality of life issues, advanced care planning, and and anticipatory guidance Recommendations/Counseling Done: 1. Dizziness. This is most likely multifactorial, though has shown improvement with adjustments of medications. Patient has known neuropathy and on multiple cardiac meds. They are doing daily blood pressures, remains slightly low, but symptoms are improving. Does have a mild trace pedal edema in his ankles, though does feel like he has some increased fluid retention. We will continue to monitor on a regular basis. 2. Pain of neoplastic origin patient with out any significant pain despite bony mets, I suspect the methylprednisone is controlling his bony pain. Patient has not received any radiation in the past, this may be an option in the future if exacerbated. 3. Anorexia. This is multifactorial with some taste changes, will be getting Meals on Wheels while his is gone. 4. Generalized weakness. Patient does present with muscle wasting, poor quad strength, most likely attributed to weight loss, hormonal treatment and steroid use. Did trial peddler, had some calf pull, this is really resolving. Encouraged to retry, also encourage progressive ambulation program, did get [facility] as patient is at high risk for falls and sequela. He is on Xarelto. Goal is to get him comfortable enough so he can ambulate 2 blocks to mu-ism, and referral for outpatient strengthening. 5. Depression. Patient is feeling little bit low but his son is getting ready to leave. We did discuss what other things can he do to support himself, he is reading, is looking forward to restarting mu-ism services and support, as well as his learning Tajik. Encouraged to continue finding things that bring him giselle and comfort and also reaching out for further support. 6. Advanced care planning. Patient does have a robust advance care planning document we did complete a POLST today. With DN AR/DNI with selective treatments acceptance of antibiotics and depending on situation regarding tube feedings. Patient's goals are to focus on quality of life, spending time with family, treating reversible conditions, and at end-of-life a comfortable respectful at home. This is the first time he and his are talked about end-of-life planning, and she is in agreement. Education provided and instructing to put on the fridge so if paramedics were summoned with [facility] or by neighbors, they would be able to follow his instructions. 60 minutes with greater than 50% of this time in counseling regarding goals of care, symptom management, and anticipatory guidance.
== END 2020-10-13 14:01 | disposition home or self-care (01) ==
LOC: PC 14:00
PROVIDERS: ATTEND Nurse Practitioner Adult Health
DX: Z51.5 Encounter for palliative care (principal); R42 Dizziness and giddiness; R60.0 Localized edema; G89.3 Neoplasm related pain (acute) (chronic); C61 Malignant neoplasm of prostate; C79.51 Secondary malignant neoplasm of bone; R63.0 Anorexia; R53.1 Weakness; F32.9 Major depressive disorder, single episode, unspecified; I12.9 Hypertensive chronic kidney disease with stage 1 through stage 4 chronic kidney disease, or unspecified chronic kidney disease; E11.22 Type 2 diabetes mellitus with diabetic chronic kidney disease; N18.30 Chronic kidney disease, stage 3 unspecified; E11.40 Type 2 diabetes mellitus with diabetic neuropathy, unspecified; Z79.52 Long term (current) use of systemic steroids; Z79.899 Other long term (current) drug therapy; Z91.81 History of falling; Z66 Do not resuscitate
CPT/HCPCS: 99350

== ENCOUNTER 2020-10-20 12:45 | Outpatient (CLI) | payer MEDICARE, OTHER ==
--- NOTE | 2020-10-20 16:35 | CONSULTATION NOTE ---
Palliative Care Follow Up - Referral Referring Provider: Dr. Sheeba Cuevas Time of Visit: [id number] Referral setting: Home Referral Reason: Fatgue/Depression/Wt. Gain/Met Prostate CA - Information Sources Records reviewed: Previous records reviewed History/Review of Systems obtained from: Patient Exam limitations: No limitations - History of Present Illness Update Brief HPI Update: This is a jose 70-year-old gentleman with metastatic prostate cancer who is currently on Zytiga 250 mg in the a.m., and methylprednisone 5 mg twice daily. He has had resolution of his severe dizziness and orthostatic hypotension with change in meds, unfortunately has gained some fluid weight, from 212 to 216, though there is no lower extremity edema, he feels this is in his abdomen. His blood pressures have been around 115/78, has not had any difficulty with ambulation, most of his difficulty with ambulation is endurance and quad weakness. His is currently out of town, not expected to return till beginning of next week, daughter has been checking on him, he does have [facility], his meds are set up, but does admit to some depression exacerbation, though has enjoyed some time on his own. The other underlying complaints are diarrhea, reports this fluctuates, has been watery. He does not have any Imodium at home. He also has had a persistent headache that has fluctuated over the last few days, though in review of his fluids he is doing well keeping up. Patient reports did have bleeding in his right eye, has had it before, was instructed to hold his Xarelto for 2 days. At this point time it has resolved. Past Medical History: Arthritis, hypertension, hypercholesteremia, peripheral neuropathy PTSD, recurrent major depressive disorder, PVD, CKD stage III, atrial fib, diabetes type 2, gout, hearing loss, obesity, prostate original diagnosis 2016 with TURP, 2018 diagnosed with metastatic disease left rib, 12 T12 vertebral body, left sacrum, left femoral head and left femoral lesser trochanter. Social History - Living Situation Living arrangement: At home Living Situation: With spouse/s.o. Support System: Patient lives with his jose Randa, is currently on the road taking their son Mio to [place]. Jean is getting in December, will be back shortly, but he has been living with them providing support. Patient is improved and doing better, is looking forward to having just him and his . Patient is in [facility] [place], but has not been able to practice with his illness and in the context of the pandemic. Medications/Allergies - Medications Home Medications: Ambulatory Orders Medication Instructions Recorded Confirmed Alpha Lipoic Acid 50 tab PO DAILY 11/12/19 10/20/20 Multivit-Min/FA/Lycopen/Lutein 1 tab DAILY 11/12/19 10/20/20 [Centrum Silver Men Tablet] Duloxetine HCl 30 mg PO DAILY 01/18/20 10/20/20 buPROPion [Wellbutrin Sr] 150 mg PO BID 01/18/20 10/20/20 Loperamide [Imodium] 2 mg PO QID PRN capsule 01/25/20 10/20/20 Abiraterone Acetate 250 mg PO DAILY 09/29/20 10/20/20 Cholecalciferol (Vitamin D3) 1,000 unit PO DAILY 09/29/20 10/20/20 [Vitamin D3] Digoxin [Lanoxin] 125 mcg PO .Q 48 HOURS 09/29/20 10/20/20 Mecobalamin [B12 Active] 100 mcg PO DAILY 09/29/20 10/20/20 Methylprednisolone [Medrol Dose 4 mg PO BID 09/29/20 10/20/20 Pack] Metoprolol Succinate [Toprol Xl] 25 mg PO DAILY 09/29/20 10/20/20 Rivaroxaban [Xarelto] 15 mg PO DAILY 09/29/20 10/20/20 Rosuvastatin Calcium [Crestor] 5 mg PO QPM 09/29/20 10/20/20 Spironolactone [Aldactone] 12.5 mg PO DAILY 09/29/20 10/20/20 lisinopriL [Lisinopril] 2.5 mg PO QPM 09/29/20 10/20/20 - Allergies Allergies/Adverse Reactions: Allergies Allergy/AdvReac Type Severity Reaction Status Date / Time Penicillins Allergy Rash Verified 01/17/20 18:59 oxycodone HCl * AdvReac Dizziness Verified 01/17/20 18:59 [From OxyContin] Review of Systems - Constitutional Constitutional: reports: Fatigue (persistent), Weight gain (216.5) - Eyes Eyes: reports: Vision loss, Corrective lenses - Ears, Nose & Throat Ears, Nose & Throat: reports: Hearing loss, Tinnitus, Hoarseness - Cardiovascular Cardiovascular: reports: Exertional dyspnea, Decr. exercise tolerance. denies: Chest pain, Edema - Respiratory Respiratory: reports: SOB with exertion. denies: Cough, SOB at rest - Gastrointestinal Gastrointestinal: reports: Abdominal distention (mild), Diarrhea (watery stool; fluctuates), Poor appetite, Early satiety. denies: Nausea, Reflux/heartburn - Musculoskeletal Musculoskeletal: reports: Muscle aches, Stiffness, Muscle weakness, Assistive devices (uses cane), Other (poor balance) - Integumentary Integumentary: reports: Dryness, Other (brusing on forearms/extensive) - Neurological Neurological: reports: General weakness, Dizziness, Numbness (persistent/mild tingling), Abnormal gait - Psychiatric Psychiatric: reports: Depression. denies: Suicidal - Hematologic/Lymphatic Hematologic/Lymph: reports: Anemia (11.8), Bruising, Bleeding tendencies (had bleed in eyes). denies: Recurrent infections - All Other Systems All Other Systems: reports: Reviewed and negative Physical Exam - Vital Signs Temperature: 97.2 C Pulse Rate: 70 Respiratory Rate: 18 O2 Saturation: 95 (ra @ rest) Blood Pressure: 114/58 (sitting; 112/64 standing) - Physical Exam General Appearance: positive: No acute distress, Alert Eyes Bilateral: positive: Normal inspection, Conjunctivae nml (no notable residual from bleeding right eye) ENT: positive: No signs of dehydration Neck: positive: No JVD, Trachea midline Cardiovascular: positive: Regular rate & rhythm Respiratory: positive: No respiratory distress, Breath sounds nml. negative: Wheezes, Rales, Rhonchi Abdomen: positive: Soft, Nml bowel sounds, Obese Skin: positive: Pallor, Dryness, Bruising (upper arms) Extremities: positive: No pedal edema Neurologic/Psychiatric: positive: Oriented x3, Mood/affect nml Palliative Care - POLST Patient has POLST: Yes POLST Status: DNR, Selective Treatment Pain: No pain Tiredness/Fatigue: Moderate (4-6) Drowsiness/Sedation: Mild (1-3) Nausea: Mild (1-3) Anorexia: Moderate (4-6) Dyspnea: Mild (1-3) Depression: Moderate (4-6) Anxiety: Mild (1-3) Feelings of wellbeing/Perceived Quality of Life: Fair, Acceptable, Improved Sleep: Sleeps well Performance Status: Patient is ambulatory, is able to ambulate short distances with improved blood pressures. Patient still has significant activity intolerance, but is independent in ADLs. - Palliative Care Discussion: Discussion today centered around patient's relationship and consideration regarding his diagnosis of metastatic prostate cancer, he continues to hope for the best and hoping for quantity as well as quality. We did discuss about his davis, his davis journey, and encouraged him to reestablish with local confucianism as this does seem to be something that supports him. Patient is looking forward to time with just he and his , discussed about setting short-term goals and continuing to pursue things that bring him pleasure and comfort. Impression and Recommendations - Palliative Care Impression: This is a 70-year-old gentleman who has metastatic prostate cancer to the bones, currently receiving Zytiga with recent improvement of PSA. Patient has co morbidities of newly diagnosed atrial fib, has responded to adjustment in medications, without further dizziness but now has symptoms of weight gain and mild fluid retention in abdomen. He continues with persistent fatigue, he is managing with his gone this week. Palliative care established with patient for pain and symptom management, advanced care planning and anticipatory guidance. Recommendations/Counseling Done: 1. Diarrhea. This is most likely attributed to side effect of Zytiga, patient does not have any Imodium in the home. Instructed pain Imodium ov [id number], take 2 mg after each loose stool up to 4 times a day. Also instructed to start either Benefiber or Metamucil bulk laxative take half dose daily to absorb fluid and slow down "transit". Patient verbalized understanding and written instructions left. 2. GERD. Patient does have some intermittent abdominal discomfort, reviewed patient currently on Xarelto and methylprednisolone high risk for bleed. Instructed not to add alcohol to the mix. Patient verbalized understanding. Reviewed signs and symptoms of concern for GI bleeding. 3. Anorexia. This is multifactorial and attributed taste changes. Patient does not like Meals on Wheels, but is able to do meal prep while his is gone. 4. Generalized weakness. Patient does present with muscle wasting, poor quad strength, most likely attributed weight loss as well as long-term hormonal and steroid use. Patient is setting short-term goals to improve functional status, and to be able to return back to work. Patient does have peddler, has been instructed on progressive ambulating kitchen program. 5. Weight gain. Most likely attributed to mild fluid retention. Will restart spironolactone at 12.5 mg daily, patient is doing daily blood pressures, will contact palliative care if dizziness recurs. 6. Advanced care planning. Patient does have a robust advance care planning document as well as a completed POLST with DN AR/DNI with selective treatments. Patient goals are to continue to focus on quality of life, is looking forward to his son's wedding in December, is hoping for ongoing quantity as well as quality of life. 60 minutes with greater than 50% of this time in counseling regarding symptom management, side effect management and anticipatory guidance.
== END 2020-10-20 12:46 | disposition home or self-care (01) ==
LOC: PC 12:45
PROVIDERS: ATTEND Nurse Practitioner Adult Health
DX: Z51.5 Encounter for palliative care (principal); R19.7 Diarrhea, unspecified; K21.9 Gastro-esophageal reflux disease without esophagitis; M62.81 Muscle weakness (generalized); R63.5 Abnormal weight gain; R53.83 Other fatigue; R06.09 Other forms of dyspnea; I48.91 Unspecified atrial fibrillation; C61 Malignant neoplasm of prostate; C79.51 Secondary malignant neoplasm of bone; Z79.899 Other long term (current) drug therapy; Z79.52 Long term (current) use of systemic steroids; Z79.01 Long term (current) use of anticoagulants; Z66 Do not resuscitate
CPT/HCPCS: 99350

== ENCOUNTER 2020-12-19 12:30 | Outpatient (CLI) | payer MEDICARE, OTHER ==
--- NOTE | 2020-12-19 14:37 | CONSULTATION NOTE ---
Palliative Care Follow Up - Referral Referring Provider: Dr. Sheeba Cuevas Time of Visit: [id number] Referral setting: Home Referral Reason: Met Prostate Ca/subconjunctival hemmorhage/Foot wound - Information Sources Records reviewed: Previous records reviewed History/Review of Systems obtained from: Patient, Family () Exam limitations: No limitations - History of Present Illness Update Brief HPI Update: This is a jose 70-year-old gentleman with metastatic prostate cancer is currently on Zytiga 250 mg in the a.m. and methylprednisone 5 mg twice daily. He presents today with subconjunctival hemorrhage in right eye, he has had 2 previous in the previous 9 months, but this is significant in it occurred over the weekend and essentially fills the whole of the conjunctival sac, at that point time had impaired his vision but no outward bleeding. He reports currently no pain, vision is good, but is concerned and has stopped the Xarelto starting Saturday. Does have call into his project engineering director with no return call at this point, but otherwise has started physical therapy last couple of weeks, is having some hypotension but dizziness remains better controlled. His son is returning this week, for celebrating his wedding he is looking forward to seeing him though it does increase his fatigue. He has also seen the logging tractor operator, who removed the callus on his right foot, and is healing well. He did see oncology, his PSA remains elevated with slight fluctuations, they have not changed his treatment plan as they are running out of options. He is under the impression he is awaiting FDA approval on his next option which may be appropriate for him. Continues with intermittent GI complaints with diarrhea though this is better controlled with diet. He reports his mood is good, and has been up and around in the house more. His confirms this. Past Medical History: CurrentArthritis. 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 Social History - Living Situation Living arrangement: At home Living Situation: With spouse/s.o. Support System: Patient lives with his jose Randa, is expecting his son Jean home soon, with celebrations around the wedding. He does have a daughter as well. Patient is in [facility], has not been able to practice with his illness in the context of the pandemic, is looking forward to making connections again. Medications/Allergies - Medications Home Medications: Ambulatory Orders Medication Instructions Recorded Confirmed Alpha Lipoic Acid 50 tab PO DAILY 11/12/19 12/20/20 Multivit-Min/FA/Lycopen/Lutein 1 tab DAILY 11/12/19 12/20/20 [Centrum Silver Men Tablet] Duloxetine HCl 30 mg PO DAILY 01/18/20 12/20/20 buPROPion [Wellbutrin Sr] 150 mg PO BID 01/18/20 12/20/20 Loperamide [Imodium] 2 mg PO QID PRN capsule 01/25/20 12/20/20 Abiraterone Acetate 250 mg PO DAILY 09/29/20 12/20/20 Cholecalciferol (Vitamin D3) 1,000 unit PO DAILY 09/29/20 12/20/20 [Vitamin D3] Digoxin [Lanoxin] 125 mcg PO .Q 48 HOURS 09/29/20 12/20/20 Mecobalamin [B12 Active] 100 mcg PO DAILY 09/29/20 12/20/20 Metoprolol Succinate [Toprol Xl] 25 mg PO DAILY 09/29/20 12/20/20 Rivaroxaban [Xarelto] 15 mg PO DAILY 09/29/20 12/20/20 Rosuvastatin Calcium [Crestor] 5 mg PO QPM 09/29/20 12/20/20 lisinopriL [Lisinopril] 2.5 mg PO QPM 09/29/20 12/20/20 methylPREDNISolone [Medrol Dose 4 mg PO BID 09/29/20 12/20/20 Pack] - Allergies Allergies/Adverse Reactions: Allergies Allergy/AdvReac Type Severity Reaction Status Date / Time Penicillins Allergy Rash Verified 01/17/20 18:59 oxycodone HCl * AdvReac Dizziness Verified 01/17/20 18:59 [From OxyContin] Review of Systems - Constitutional Constitutional: reports: Fatigue (persistent), Weakness, Weight stable (215) - Eyes Eyes: reports: Blurred vision (over weekend; improved), Vision loss, Corrective lenses, Other (subconjunctival hemmorhage) - Ears, Nose & Throat Ears, Nose & Throat: reports: Hearing loss, Tinnitus, Hoarseness, Dry mouth - Cardiovascular Cardiovascular: reports: Lightheadedness, Exertional dyspnea, Decr. exercise tolerance. denies: Chest pain, Edema - Respiratory Respiratory: reports: SOB with exertion. denies: Cough, SOB at rest - Gastrointestinal Gastrointestinal: reports: Abdominal distention (mild), Early satiety. denies: Diarrhea (watery stool; fluctuates), Nausea, Reflux/heartburn - Musculoskeletal Musculoskeletal: reports: Muscle aches, Stiffness, Muscle weakness, Assistive devices (uses cane), Other (poor balance; started physical therapy) - Integumentary Integumentary: reports: Dryness, Other (brusing on forearms/extensive; saw logging tractor operator new area on right foot.) - Neurological Neurological: reports: General weakness, Dizziness, Numbness (persistent/mild tingling), Abnormal gait - Psychiatric Psychiatric: reports: Depression. denies: Suicidal - Hematologic/Lymphatic Hematologic/Lymph: reports: Anemia, Bruising, Bleeding tendencies (had bleed in eye now 3rd time). denies: Recurrent infections - All Other Systems All Other Systems: reports: Reviewed and negative Physical Exam - Vital Signs Temperature: 96.7 C Pulse Rate: 88 Respiratory Rate: 18 O2 Saturation: 97 (ra @ rest) Blood Pressure: 112/48 - Physical Exam General Appearance: positive: No acute distress, Alert Eyes Bilateral: positive: Normal inspection. negative: Conjunctivae nml (see HPI; blood fill cinjunctivae left eye) ENT: positive: No signs of dehydration Neck: positive: No JVD, Trachea midline Cardiovascular: positive: Regular rate & rhythm Respiratory: positive: No respiratory distress, Breath sounds nml. negative: Wheezes, Rales, Rhonchi Abdomen: positive: Soft, Nml bowel sounds, Obese Skin: positive: Pallor, Dryness, Bruising (upper arms) Extremities: positive: No pedal edema Neurologic/Psychiatric: positive: Oriented x3, Mood/affect nml, Flat affect Palliative Care - POLST Patient has POLST: Yes POLST Status: DNR, Selective Treatment Pain: No pain Tiredness/Fatigue: Moderate (4-6) Drowsiness/Sedation: Mild (1-3) Nausea: None Anorexia: Mild (1-3) Dyspnea: Mild (1-3) Depression: Mild (1-3) Anxiety: Moderate (4-6) Feelings of wellbeing/Perceived Quality of Life: Good, Acceptable, Improved Sleep: Sleep improved Constipation: No Performance Status: Patient is ambulatory in the home, has started physical therapy. Is hesitant to increase activity with his current eye bleed, but is independent in his ADLs. - Palliative Care Discussion: Discussion centered around upcoming wedding, time with family, concern for his acute eye bleed, and stressors related to this and ongoing fluctuating PSA. He does understand the seriousness of his illness, but is hoping both for quality and quantity of time, is wondering about continuing the Xarelto, though counseling was provided regarding patient's high risk for clots given his underlying disease process. Impression and Recommendations - Palliative Care Impression: This is a 70-year-old gentleman with metastatic cancer to the bones, currently receiving Zytiga with fluctuating PSA. Patient has comorbidities of newly diagnosed atrial fib, now with concerns regarding his Xarelto and subconjunctival hemorrhage. Patient continues to improve slowly, though does have persistent fatigue, he is managing. Palliative care to provide support for pain and symptom management, advanced care planning, and anticipatory guidance. Recommendations/Counseling Done: 1. Subconjunctival hemorrhage right eye. Did read up child to project engineering director, with request for return call. Reinforced patient's decision to stop the Xarelto until further directions. Reviewed back to patient, signs and symptoms to access acute care, and recommended made appointment with project engineering director to have further discussion regarding waiting burdens and benefits of continuing the Xarelto. Did receive instructions back from Dr. Srinivasan to continue to hold, getting urgent visit to Water Well Driller to make sure the eye is okay, and then they will look at changing anticoag. update 12/20 2. Right foot callus. This is been debrided by logging tractor operator, does appear to healing without any signs or symptoms of infection, or recurrence of discomfort. is changing dressing every 2 to 3 days, was reassured it is looking fine. 3. Hypotension. Patient had been restarted on spironolactone 12.5 mg for weight gain now resolved at baseline, had some improvement in his hypotension and dizziness when originally discontineud but this is returned. Though it is not as persistent or problematic. Will discontinue at this point in time, patient does appear to be somewhat dry, and no lower extremity edema or abdominal fullness. 4. Generalized weakness. Patient does have muscle wasting, poor quad strength most likely attributed weight loss as well as long-term hormonal and steroid use. Patient has started physical therapy which he found helpful, is hoping to return after his foot and I issues resolved. 5. Advanced care planning. Patient has a robust advance care planning document, as well as completed POLST with DN AR/DNI with selective treatments completed. Patient's goals are continue to focus on quality of life, return to improve level of functioning, as well as hoping for quantity. 60 minutes with greater than 50% of this done in counseling regarding symptom management, follow-up with cardiology, psychosocial support and anticipatory guidance.
== END 2020-12-19 12:31 | disposition home or self-care (01) ==
LOC: PC 12:30
PROVIDERS: ATTEND Nurse Practitioner Adult Health
DX: Z51.5 Encounter for palliative care (principal); H11.31 Conjunctival hemorrhage, right eye; L84 Corns and callosities; I95.9 Hypotension, unspecified; R53.1 Weakness; C61 Malignant neoplasm of prostate; C79.51 Secondary malignant neoplasm of bone; Z79.899 Other long term (current) drug therapy; Z66 Do not resuscitate
CPT/HCPCS: 99350

== ENCOUNTER 2021-02-01 10:45 | Outpatient (CLI) | payer MEDICARE, OTHER ==
--- NOTE | 2021-02-01 17:20 | CONSULTATION NOTE ---
Palliative Care Follow Up - Referral Referring Provider: Dr. Sheeba Cuevas Time of Visit: [id number] Referral setting: Home Referral Reason: Met Prostate CA/FTT/Orthostatic hypotension - Information Sources Records reviewed: Previous records reviewed History/Review of Systems obtained from: Patient, Family ( Randa) Exam limitations: No limitations - History of Present Illness Update Brief HPI Update: This is a jose 70-year-old gentleman who presents today in the context of his metastatic prostate cancer, with ongoing functional decline, weight loss of 10 pounds over the last month, worsening fatigue and weakness, pallor with sallow hue, and symptomatic orthostatic hypotension. Patient reports he is sleeping well through the night, but also is sleeping about 4 hours during the day, is awake may be total 8 hours, reports overwhelming tiredness. Patient reports of fall about 3 weeks ago, did hit the back of his head, did not seek any emergent or follow-up care as his "neuro signs" were fine. Patient continues on blood thinners, he was transition to apixaban from Xarelto secondary to his subconjunc tival hemorrhage which has since resolved from last visit 12/19/20. He is somewhat discouraged, and worried in the context of his disease process. He currently remains on Zytiga 250 mg in the a.m. and methylprednisone 5 mg twice daily. He does understand he is running out of options for treatment, and is hoping there is medication that is awaiting FDA approval that may be appropriate for him. In the context of the pending holiday weekend, and patient's presentation, concern patient is with worsening anemia and/or dehydration, and certainly could be attributed to worsening disease process. Did follow-up with oncology to make arrangements for labs and evaluation as well as possible fluids at/or transfusion if indicated. Past Medical History: Osteoarthritis, hypertension, hypercholesteremia, peripheral neuropathy, PTSD, major depressive disorder, PVD, CKD stage III, atrial fib, diabetes type 2, gout, hearing loss, obesity, prostate cancer 2016 with TURP, 2018 diagnosed with metastatic disease left rib, T12 vertebral body, left sacrum, left femoral head, and left femoral lesser trochanter Social History - Living Situation Living arrangement: At home Living Situation: With spouse/s.o. Support System: Patient lives with his Randa, recently his son Jean from [place] was home to celebrate his wedding. Daughter lives in [place], but otherwise has very little community support. Patient is in [facility], has not been able to practice with his illness and particularly in the context of the pandemic. They live in a single level house in [place]. Medications/Allergies - Medications Home Medications: Ambulatory Orders Medication Instructions Recorded Confirmed Alpha Lipoic Acid 50 tab PO DAILY 11/12/19 02/02/21 Multivit-Min/FA/Lycopen/Lutein 1 tab DAILY 11/12/19 02/02/21 [Centrum Silver Men Tablet] Duloxetine HCl 30 mg PO DAILY 01/18/20 02/02/21 buPROPion [Wellbutrin Sr] 150 mg PO BID 01/18/20 02/02/21 Loperamide [Imodium] 2 mg PO QID PRN capsule 01/25/20 02/02/21 Abiraterone Acetate 250 mg PO DAILY 09/29/20 02/02/21 Cholecalciferol (Vitamin D3) 1,000 unit PO DAILY 09/29/20 02/02/21 [Vitamin D3] Digoxin [Lanoxin] 125 mcg PO .Q 48 HOURS 09/29/20 02/02/21 Mecobalamin [B12 Active] 100 mcg PO DAILY 09/29/20 02/02/21 Metoprolol Succinate [Toprol Xl] 25 mg PO DAILY 09/29/20 02/02/21 Rosuvastatin Calcium [Crestor] 5 mg PO QPM 09/29/20 02/02/21 lisinopriL [Lisinopril] 2.5 mg PO QPM 09/29/20 02/02/21 methylPREDNISolone [Medrol Dose 4 mg PO BID 09/29/20 02/02/21 Pack] Apixaban [Eliquis] 2.5 mg PO BID 02/02/21 02/02/21 - Allergies Allergies/Adverse Reactions: Allergies Allergy/AdvReac Type Severity Reaction Status Date / Time Penicillins Allergy Rash Verified 01/17/20 18:59 oxycodone HCl * AdvReac Dizziness Verified 01/17/20 18:59 [From OxyContin] Review of Systems - Constitutional Constitutional: reports: Fatigue (worsening), Weakness, Weight loss (202 from 215 last visit) - Eyes Eyes: reports: Vision loss, Corrective lenses - Ears, Nose & Throat Ears, Nose & Throat: reports: Hearing loss, Tinnitus, Hoarseness (worsening), Dry mouth - Cardiovascular Cardiovascular: reports: Lightheadedness, Exertional dyspnea, Decr. exercise tolerance. denies: Chest pain, Edema - Respiratory Respiratory: reports: Cough (cough mostly in am), SOB with exertion. denies: SOB at rest - Gastrointestinal Gastrointestinal: reports: Abdominal distention (mild), Poor appetite, Early satiety. denies: Nausea, Reflux/heartburn - Musculoskeletal Musculoskeletal: reports: Muscle aches, Stiffness, Muscle weakness, Assistive devices (uses cane), Other (poor balance; started physical therapy but on hold after fall) - Integumentary Integumentary: reports: Dryness, Other (brusing on forearms/extensive; callous reformed on foot) - Neurological Neurological: reports: General weakness, Dizziness, Numbness (persistent/mild tingling), Abnormal gait - Psychiatric Psychiatric: reports: Depression. denies: Suicidal - Hematologic/Lymphatic Hematologic/Lymph: reports: Anemia (no recent labs, due this Saturday), Bruising, Bleeding tendencies. denies: Recurrent infections - All Other Systems All Other Systems: reports: Reviewed and negative Physical Exam - Vital Signs Temperature: 97.3 C Pulse Rate: 74 (sitting; 88 standing) Respiratory Rate: 18 O2 Saturation: 93 (ra @ rest) Blood Pressure: 112/44 (sitting ; 92/42 standing with dizzyness) - Physical Exam General Appearance: positive: Alert, Mild distress (feeling poorly) Eyes Bilateral: positive: Normal inspection, Conjunctivae nml (with yellow hue) ENT: negative: No signs of dehydration (patient decreased intake; orthostatic with dizzyness and weakness) Neck: positive: No JVD, Trachea midline Cardiovascular: positive: Regular rate & rhythm Respiratory: positive: No respiratory distress, Diminished in bases (left lower ; right clear). negative: Wheezes, Rales, Rhonchi Abdomen: positive: Soft, Nml bowel sounds, Obese Skin: positive: Pallor, Dryness, Bruising (upper arms) Extremities: positive: No pedal edema Neurologic/Psychiatric: positive: Oriented x3, Mood/affect nml, Flat affect Palliative Care - POLST Patient has POLST: Yes POLST Status: DNR, Selective Treatment Pain: Location (mild pain in upper back; not at level needs medication) Tiredness/Fatigue: Severe (7-10) Drowsiness/Sedation: Severe (7-10) (sleeping most of the time; awake about 8 hours total) Nausea: None Anorexia: Moderate (4-6), Weight loss Dyspnea: Moderate (4-6) (worse with activity) Depression: Moderate (4-6) Anxiety: Moderate (4-6) Feelings of wellbeing/Perceived Quality of Life: Fair, Worsening Sleep: Sleeps well Constipation: No Performance Status: Patient had initiated physical therapy, he was quite pleased about this. He had to put it on hold though after his fall, has continued to feel quite weak, with worsening endurance, continues with balance issues. Patient is able to currently bathe independently, they do have a shower bench if needed. - Palliative Care Discussion: Patient is quite discouraged with his declining status, he does present today with concerns unclear if acute or attributed to his worsening disease status. Patient does understand the seriousness of his illness, and struggles with his declining quality of life.Discussion centered around encouraging finding some short-term goals of care, and counseling regarding adjustment to illness. Impression and Recommendations - Palliative Care Impression: This is a 70-year-old gentleman with metastatic cancer to the bones, currently receiving Zytiga with fluctuating PSA. Patient does have known comorbidities add to the complexity of his current status including atrial fib. He has had de lucero over the last last month with increasing weakness, fatigue, anorexia, and today presents acutely with orthostatic hypotension and failure to thrive. Palliative care to provide support for symptom management, advanced care planning, coordination of care and anticipatory guidance. Recommendations/Counseling Done: 1. Subconjunctival hemorrhage right eye. This is since resolved, no further bleeding. Marketing Finance Manager stopped Xarelto and transition to apixaban. 2. Orthostatic hypotension. Patient is symptomatic today, most likely multifactorial with dehydration and possible worsening anemia. Patient instructed on pushing fluids, arrangements made with oncology for labs and possible hydration. 3. Generalized weakness. Patient did have a fall, continues to have muscle wasting, now with weight loss, poor quad strength most likely attributed to weight loss and long-term hormonal and steroid use. Patient had initiated physical therapy, currently is too weak we will put on hold for now. Patient had hit head and fall, educated on need for follow-up secondary to bleeding risk with anticoag. Both patient and verbalized understanding. 4. Anorexia. Patient has initiated protein shakes, counseling provided regarding strategies for increasing calorie and fluid intake, as well as encouraged small frequent feedings, as well as increasing protein shakes to twice a day. 5. Metastatic prostate cancer. Patient demonstrates failure to thrive today, unclear can be attributed to acute underlying etiology or in the setting of his progressive disease. Patient will see oncologist in follow-up today. 6. Advanced care planning. Patient does have a advance care planning documents as well as POLST with DN AR/DNI and selective treatments completed. Counseling provided regarding short-term and long-term goals of care, and adjustment to illness. 45 minutes with greater than 50% of this done in counseling regarding symptom management, coordination of care with oncology, psychosocial support and anticipatory guidance.
== END 2021-02-01 10:46 | disposition home or self-care (01) ==
LOC: PC 10:45
PROVIDERS: ATTEND Nurse Practitioner Adult Health
DX: Z51.5 Encounter for palliative care (principal); R53.83 Other fatigue; R53.1 Weakness; R23.1 Pallor; R63.4 Abnormal weight loss; R62.7 Adult failure to thrive; R63.0 Anorexia; M62.50 Muscle wasting and atrophy, not elsewhere classified, unspecified site; I95.1 Orthostatic hypotension; I48.91 Unspecified atrial fibrillation; C61 Malignant neoplasm of prostate; C79.51 Secondary malignant neoplasm of bone; Z91.81 History of falling; Z79.899 Other long term (current) drug therapy; Z79.01 Long term (current) use of anticoagulants; Z79.52 Long term (current) use of systemic steroids; Z66 Do not resuscitate
CPT/HCPCS: 99349

== ENCOUNTER 2021-03-14 10:51 | Outpatient (CLI) | payer MEDICARE, OTHER ==
[2021-03-14 17:52] LABS: BASOPHILS % (AUTO) 0.8 %; EOSINOPHILS # (AUTO) 0.1 10^3/uL (0.0-0.7); EOSINOPHILS % (AUTO) 2.1 %; HGB - HEMOGLOBIN 9.9 g/dL (14.0-18.0); LYMPHOCYTES # (AUTO) 1.5 10^3/uL (1.5-3.5); LYMPHOCYTES % (AUTO) 28.4 %; MEAN CORPUSCULAR HEMOGLOBIN 31.8 pg (27.0-31.0); MEAN CORPUSCULAR HGB CONC 30.9 g/dL (32.0-36.0); MEAN CORPUSCULAR VOLUME 102.9 fL (80.0-94.0); MEAN PLATELET VOLUME 9.5 fL (7.4-11.4); MONOCYTES # (AUTO) 0.3 10^3/uL (0.0-1.0); MONOCYTES % (AUTO) 6.5 %; NEUTROPHILS # (AUTO) 3.2 10^3/uL (1.5-6.6); NEUTROPHILS % (AUTO) 61.4 %; PLT - PLATELET COUNT 136 10^3/uL (130-450); RED BLOOD COUNT 3.11 10^6/uL (4.70-6.10); WHITE BLOOD COUNT 5.2 x10^3/uL (4.8-10.8)
== END 2021-03-14 10:52 | disposition home or self-care (01) ==
LOC: LAB.N 10:51
PROVIDERS: ATTEND Nurse Practitioner Adult Health
DX: D64.9 Anemia, unspecified (principal)
CPT/HCPCS: 36415; 85025

== ENCOUNTER 2021-03-16 11:30 | Outpatient (CLI) | payer MEDICARE, OTHER ==
--- NOTE | 2021-03-16 13:52 | CONSULTATION NOTE ---
Palliative Care Follow Up - Referral Referring Provider: Dr. Sheeba Cuevas Time of Visit: [id number] Referral setting: Home Referral Reason: Dyspnea/Muscle Weakness/Met Prostate CA with bone mets - Information Sources Records reviewed: Previous records reviewed History/Review of Systems obtained from: Patient, Family ( present Randa) Exam limitations: No limitations - History of Present Illness Update Brief HPI Update: This is a jose 70-year-old gentleman who presents today in the context of his metastatic prostate cancer, with ongoing functional decline, has had a weight loss of 10 pounds over the last month, worsening fatigue, is weakness and continued pallor. Patient did have a fall about a week ago, did need assistance up from neighbor. He had been on outpatient physical therapy, but with his functional decline has not been able to tolerate this. He recognizes he is getting weaker, they just got a lift chair, they are coming to accommodate toilet rails. He is wondering though if he could have home physical therapy for strengthening, fall prevention, and further recommendations for equipment and safety. His last oncology visit was 02/08/2021. He does have known metastatic disease, with soft tissue nodules in the right upper lobe, right hilar adenopathy, did have a known small left pleural issue effusion on 03/2020, and has vertebral and pelvic bone mets consistent. He has been on Zytiga 250 mg daily with methylprednisone 5 mg twice daily. He is getting Zometa, and his PSA last documented in oncology records is 01/11/2021 756.77. He has needed fluids the last couple times he has been in. Patient reports increasing dyspnea, has noted this over several weeks, more acutely since the fall. His oxygen saturations are within normal limits, he is not orthostatic, he reports he has been keeping up with his fluids. He reports he has a dry cough most often in the evening, does feel sinus congestion, has started some sidetracked, and Flonase. He reports he has had some wheezing, on exam he does have decreased right lower lobe breath sounds. He does appear breathless with conversation. He has been using his walker since his fall. He does understand the seriousness of his illness, and continues to show functional decline. Past Medical History: Osteoarthritis, hypertension, hypercholesteremia, peripheral neuropathy, PTSD, major depressive disorder, PVD, CKD stage III, atrial fib on Xarelto, diabetes type 2, gout, hearing loss, obesity, prostate cancer 2016 with TURP, 2018 diagnosed with metastatic disease left rib, 12 T12 vertebral body, left sacrum and left femoral head and left femoral lesser trochanter Social History - Living Situation Living arrangement: At home Living Situation: With spouse/s.o. Support System: Patient lives at home with his jose Randa, they do have a daughter lives in [place] who does provide intermittent support. Recently his son Jean from [place] was visiting, home to celebrate his wedding. He had been living with them previously as he had been acutely ill. They live in a single level house in [place]. Medications/Allergies - Medications Home Medications: Ambulatory Orders Medication Instructions Recorded Confirmed Alpha Lipoic Acid 50 tab PO DAILY 11/12/19 03/16/21 Multivit-Min/FA/Lycopen/Lutein 1 tab DAILY 11/12/19 03/16/21 [Centrum Silver Men Tablet] Duloxetine HCl 30 mg PO DAILY 01/18/20 03/16/21 buPROPion [Wellbutrin Sr] 150 mg PO BID 01/18/20 03/16/21 Loperamide [Imodium] 2 mg PO QID PRN capsule 01/25/20 03/16/21 Abiraterone Acetate 250 mg PO DAILY 09/29/20 03/16/21 Cholecalciferol (Vitamin D3) 1,000 unit PO DAILY 09/29/20 03/16/21 [Vitamin D3] Digoxin [Lanoxin] 125 mcg PO .Q 48 HOURS 09/29/20 03/16/21 Mecobalamin [B12 Active] 100 mcg PO DAILY 09/29/20 03/16/21 Metoprolol Succinate [Toprol Xl] 25 mg PO DAILY 09/29/20 03/16/21 Rosuvastatin Calcium [Crestor] 5 mg PO QPM 09/29/20 03/16/21 lisinopriL [Lisinopril] 2.5 mg PO QPM 09/29/20 03/16/21 methylPREDNISolone [Medrol Dose 4 mg PO BID 09/29/20 03/16/21 Pack] Apixaban [Eliquis] 2.5 mg PO BID 02/02/21 03/16/21 Cetirizine [ZyrTEC] 10 mg PO DAILY 03/16/21 03/16/21 Fluticasone [Flonase] 1 spray NIKOLE DAILY 03/16/21 03/16/21 - Allergies Allergies/Adverse Reactions: Allergies Allergy/AdvReac Type Severity Reaction Status Date / Time Penicillins Allergy Rash Verified 01/17/20 18:59 oxycodone HCl * AdvReac Dizziness Verified 01/17/20 18:59 [From OxyContin] Review of Systems - Constitutional Constitutional: reports: Fatigue (worsening), Weakness (worsening; GLF last week), Weight loss (202 from 215 last visit) - Eyes Eyes: reports: Vision loss, Corrective lenses - Ears, Nose & Throat Ears, Nose & Throat: reports: Hearing loss - Cardiovascular Cardiovascular: reports: Lightheadedness (improved), Exertional dyspnea, Decr. exercise tolerance. denies: Chest pain, Edema - Respiratory Respiratory: reports: Cough (cough dry), SOB with exertion. denies: SOB at rest - Gastrointestinal Gastrointestinal: reports: Abdominal distention (mild), Poor appetite, Early satiety. denies: Nausea, Reflux/heartburn - Musculoskeletal Musculoskeletal: reports: Muscle aches, Stiffness, Muscle weakness, Assistive devices (using walker since fall), Other (poor balance; started physical therapy but on hold after fall; now requesting HH PT appropriate) - Integumentary Integumentary: reports: Dryness, Other (brusing on forearms/extensive; callous reformed on foot) - Neurological Neurological: reports: General weakness, Numbness (persistent/mild tingling), Abnormal gait - Psychiatric Psychiatric: reports: Depression. denies: Suicidal - Endocrine Endocrine: reports: Diabetes type 2 - Hematologic/Lymphatic Hematologic/Lymph: reports: Anemia (9.9), Bruising, Bleeding tendencies. denies: Recurrent infections - All Other Systems All Other Systems: reports: Reviewed and negative Physical Exam - Vital Signs Temperature: 97.0 C Pulse Rate: 71 Respiratory Rate: 20 O2 Saturation: 92 (95 with ambulation) Blood Pressure: 132/58 - Physical Exam General Appearance: positive: No acute distress, Alert Eyes Bilateral: positive: Normal inspection, Conjunctivae nml (with yellow hue) ENT: negative: No signs of dehydration (patient decreased intake; orthostatic with dizzyness and weakness) Neck: positive: No JVD, Trachea midline Cardiovascular: positive: Regular rate & rhythm Respiratory: positive: No respiratory distress, Other (decreased RLL up 1/3). negative: Wheezes, Rales, Rhonchi Abdomen: positive: Soft, Nml bowel sounds, Obese Skin: positive: Pallor, Dryness, Bruising (upper arms) Extremities: positive: No pedal edema Neurologic/Psychiatric: positive: Oriented x3, Mood/affect nml, Flat affect Palliative Care - POLST Patient has POLST: Yes POLST Status: DNR, Selective Treatment Pain: No pain Tiredness/Fatigue: Severe (7-10) Drowsiness/Sedation: Mild (1-3) Nausea: None Anorexia: Moderate (4-6), Weight loss Dyspnea: Severe (7-10) Depression: Moderate (4-6) Anxiety: None Feelings of wellbeing/Perceived Quality of Life: Fair, Acceptable, Worsening Sleep: Variable sleep pattern Constipation: No Performance Status: He had initiated physical therapy outpatient, was quite pleased about this unfortunately had to put this on hold after a fall. He has continued to feel weak, with worsening endurance and had another fall last week needing assistance from neighbor to get up. We did review fall assist. Patient is very fearful of bathing currently because of his weakness, still would like to get stronger, is using walker for safety. We will go ahead and order physical therapy. Home patient - Palliative Care Discussion: Patient's goals are to continue to focus on quality of life, would like to maintain or improve his independence. He does understand the seriousness of his illness, and has been having both functional decline as well as worsening fatigue. We did rule out with labs patient white count within normal limits his hemoglobin was 9.9, he does feel like he is drinking adequately. He is more sh ort of breath, and this impacts his activity tolerance as well. They do understand there is an expected decline, but are hoping both for quality of life and quantity of life. Patient does have a POLST and is hoping to avoid hospitalizations or ED visits. Results - Lab Results Lab results reviewed: Yes Lab and Imaging Results: 03/15 WBC 5.2, hemoglobin 9.1, hematocrit 32, platelets 136 Impression and Recommendations - Palliative Care Impression: This is a 70-year-old gentleman with known metastatic cancer widespread to the bones, known soft tissue nodules in the right upper lung lobe, and right hilar adenopathy. He has had a recent fall related to increased muscle weakness, presents with worsening fatigue, functional decline, increasing dyspnea, and anorexia/weight loss. Patient's goals continue to remain as independent as long as possible, will initiate home health physical therapy/Occupational Therapy. Palliative care will continue provide support for symptom management, advanced care planning, coordination of care and anticipatory guidance. Recommendations/Counseling Done: 1. Muscle weakness. Patient had a fall last week, needed neighbors for assistance up. Counseling provided regarding lift assist, teaching sheet provided. Patient had initiated outpatient therapy, no longer is able to participate, patient is currently homebound. Will order home health physical therapy and Occupational Therapy to maximize independence. 3. Anorexia. Patient weight loss remains at 202. Is eating smaller amounts, related to early satiety. He is staying hydrated at this time. Does not pres ent with orthostatic hypotension. Patient feels this is a good weight currently, goal is to no longer lose more weight. 4. Dyspnea. This is somewhat out of proportion given his hemoglobin and past history hemoglobin is 9.9. Does have decreased breath sounds in his right lower lobe, will rule out pleural effusion, chest x-ray ordered. 5. Metastatic prostate cancer. Patient continues to demonstrate failure to thrive, unclear if attributed to acute underlying etiology or in the setting of his progressive disease, will continue to follow along with oncology. Patient does understand the seriousness of his illness, but is hoping for both quality and quantity of life. 6. Advanced care planning. Patient does have advanced care planning documents as well as POLST with DN AR/DNI and selective treatments completed. Patient short-term goals are to improve strength and independence, long-term goals continue remain at home for as long as possible and adjustment illness. [id number]. It is a considerable taxing effort for the patient leave the home with increased muscle weakness, fatigue and dyspnea. Will order home health physical therapy for safety eval, gait training, equipment needs and home exercise program. Occupational Therapy for bathroom set up, bathing independence, upper extremity strengthening. Home health aide for bathing assist and safety until transitions to independent status. 45 minutes with greater than 50% of this time in counseling and coordination of care, regarding symptom management, and anticipatory guidance. Follow-up with [facility] as first available.
== END 2021-03-16 11:31 | disposition home or self-care (01) ==
LOC: PC 11:30
PROVIDERS: ATTEND Nurse Practitioner Adult Health
DX: Z51.5 Encounter for palliative care (principal); M62.81 Muscle weakness (generalized); R63.0 Anorexia; R06.00 Dyspnea, unspecified; C61 Malignant neoplasm of prostate; C79.51 Secondary malignant neoplasm of bone; Z66 Do not resuscitate
CPT/HCPCS: 99349

== ENCOUNTER 2021-03-18 10:34 | Outpatient (CLI) | payer MEDICARE, OTHER ==
--- NOTE | 2021-03-18 11:07 | XRAY Report ---
PROCEDURE: Chest 2 View X-Ray INDICATIONS: DYSPNEA / RIGHT PLEURAL EFFUSION TECHNIQUE: 2 view(s) of the chest. COMPARISON: 01/17/2020 FINDINGS: Surgical changes and devices: Right chest wall port catheter with the tip in the expected location of the superior vena cava. Lungs and pleura: There is a small moderate right-sided and small left-sided pleural effusions. Basil ar and perihilar opacities. Prominence of the pulmonary vasculature. There is interstitial prominence . Mediastinum: Mediastinal contours are normal. Heart size is mildly enlarged, unchanged. Bones and chest wall: No suspicious bony abnormalities. Soft tissues appear unremarkable. IMPRESSION: Findings suggestive of fluid overload with small moderate right and small left pleural effusions with adjacent atelectasis. There is pulmonary vascular congestion as well as interstitial and alveolar op acities likely representing pulmonary edema. Infectious process is not completely excluded. Reviewed by: Ta Rose DO on 03/18/2021 10:06 AM ANA LILIA Approved by: Ta Rose DO on 03/18/2021 10:06 AM ANA LILIA Station ID: [id number]
== END 2021-03-18 10:35 | disposition home or self-care (01) ==
LOC: DI.N 10:34
PROVIDERS: ATTEND Nurse Practitioner Adult Health
DX: R09.89 Other specified symptoms and signs involving the circulatory and respiratory systems (principal); R91.8 Other nonspecific abnormal finding of lung field

== ENCOUNTER 2021-05-09 12:00 | Outpatient (CLI) | payer MEDICARE, OTHER ==
--- NOTE | 2021-05-09 16:36 | CONSULTATION NOTE ---
Palliative Care Follow Up - Referral Referring Provider: Dr. Sheeba Cuevas Time of Visit: 12-1300 Referral setting: Home Referral Reason: Acute on chronic pain/Met prostate CA/Stage I decub coccyx - Information Sources Records reviewed: Previous records reviewed History/Review of Systems obtained from: Patient, Family ( Randa present) Exam limitations: No limitations - History of Present Illness Update Brief HPI Update: This is a jose 70-year-old gentleman who has metastatic prostate cancer, weight loss of 10 pounds over the last month, recently saw oncology and they discontinued his Medrol as well as his Zytiga. This was somewhat in response to his worsening development of bruises and subcutaneous bluish blebs covering his bilateral forearms, across his abdomen and his shins. They report it has improved over the last week since being off the steroids. Patient is on baseline Eliquis for his atrial fib. They just stop the Medrol without any taper, patient did have somewhat of a rebound withdrawal effect with increased body achiness, pain, and severe fatigue. He is a week into this, now it does not make sense to restart to taper at this point. Patient had been using some acetaminophen in the morning with some relief, patient does appear slightly sallow and pale, is easily engaged, continues to complain of nasal drainage/clear. When last seen patient in March and had symptoms of fluid overload confirmed with chest x-ray, does showing a moderate pleural effusion on the right. He had received a liter of fluids the previous week, had responded to furosemide and restarted spironalactone. Patient does present today with some hypotension, blood pressure 98/42 with mild dizziness.Patient complaining of sore coccyx, on examination does have a shallow dried blister, bright red area where it is sitting. Patient does spend quite a bit of time in his recliner. He would like to feel better and restart outpatient physical therapy. He has had significant muscle wasting in upper and lower extremities as well as weight loss.Patient feels that he is still struggling with his depression, does reflect he has been almost homebound for 2 years now related to his health. He does understand at this point in time he is only receiving his shot and Xgeva, but that there is a pending appropriate oral medication that is coming out of clinical trials that would be something to explore when approved by FDA Past Medical History: Osteoarthritis, hypertension, hypercholesterolemia, peripheral neuropathy, PTSD, major depressive disorder PVD, CKD stage III, atrial fib on Eliquis, diabetes type 2, gout, hearing loss, obesity, prostate cancer 2016 with TURP, metastatic bone disease in 2018 Social History - Living Situation Living arrangement: At home Living Situation: With spouse/s.o. Medications/Allergies - Medications Home Medications: Ambulatory Orders Medication Instructions Recorded Confirmed Alpha Lipoic Acid 50 tab PO DAILY 11/12/19 05/09/21 Multivit-Min/FA/Lycopen/Lutein 1 tab DAILY 11/12/19 05/09/21 [Centrum Silver Men Tablet] Duloxetine HCl 30 mg PO DAILY 01/18/20 05/09/21 buPROPion [Wellbutrin Sr] 150 mg PO BID 01/18/20 05/09/21 Loperamide [Imodium] 2 mg PO QID PRN capsule 01/25/20 05/09/21 Cholecalciferol (Vitamin D3) 1,000 unit PO DAILY 09/29/20 05/09/21 [Vitamin D3] Digoxin [Lanoxin] 125 mcg PO .Q 48 HOURS 09/29/20 05/09/21 Mecobalamin [B12 Active] 100 mcg PO DAILY 09/29/20 05/09/21 Metoprolol Succinate [Toprol Xl] 25 mg PO DAILY 09/29/20 05/09/21 Rosuvastatin Calcium [Crestor] 5 mg PO QPM 09/29/20 05/09/21 lisinopriL [Lisinopril] 2.5 mg PO QPM 09/29/20 05/09/21 Apixaban [Eliquis] 2.5 mg PO BID 02/02/21 05/09/21 Cetirizine [ZyrTEC] 10 mg PO DAILY 03/16/21 05/09/21 Fluticasone [Flonase] 1 spray NIKOLE DAILY 03/16/21 05/09/21 oxyCODONE/ACET 5/325 [Percocet 5 1 tab PO Q4HR PRN 05/09/21 05/09/21 mg/325 mg] - Allergies Allergies/Adverse Reactions: Allergies Allergy/AdvReac Type Severity Reaction Status Date / Time Penicillins Allergy Rash Verified 01/17/20 18:59 oxycodone HCl * AdvReac Dizziness Verified 01/17/20 18:59 [From OxyContin] Review of Systems - Constitutional Constitutional: reports: Fatigue (worsening), Weakness (worsening), Weight loss (210) - Eyes Eyes: reports: Vision loss, Corrective lenses - Ears, Nose & Throat Ears, Nose & Throat: reports: Hearing loss, Dry mouth - Cardiovascular Cardiovascular: reports: Lightheadedness (improved), Exertional dyspnea, Decr. exercise tolerance. denies: Chest pain, Edema - Respiratory Respiratory: reports: SOB with exertion. denies: SOB at rest - Gastrointestinal Gastrointestinal: reports: Abdominal distention (mild), Poor appetite, Early satiety. denies: Nausea, Reflux/heartburn - Musculoskeletal Musculoskeletal: reports: Muscle aches, Stiffness, Muscle weakness, Other (poor balance; started physical therapy, to difficult so received PT with ready to go to outpatient until stopped medrol) - Integumentary Integumentary: reports: Dryness, Other (brusing on forearms/extensive; across abdomen and shins) - Neurological Neurological: reports: General weakness, Numbness (persistent/mild tingling), Abnormal gait - Psychiatric Psychiatric: reports: Depression. denies: Suicidal - Endocrine Endocrine: reports: Diabetes type 2 - Hematologic/Lymphatic Hematologic/Lymph: reports: Anemia (9.1), Bruising, Bleeding tendencies. denies: Recurrent infections - All Other Systems All Other Systems: reports: Reviewed and negative Physical Exam - Vital Signs Temperature: 97.2 C Pulse Rate: 76 Respiratory Rate: 18 O2 Saturation: 93 Blood Pressure: 98/42 - Physical Exam General Appearance: positive: No acute distress, Alert Eyes Bilateral: positive: Normal inspection, No scleral icterus ENT: negative: No signs of dehydration (patient decreased intake; orthostatic with dizzyness and weakness) Neck: positive: No JVD, Trachea midline Cardiovascular: positive: Regular rate & rhythm Respiratory: positive: No respiratory distress, Other (decreased RLL up 1/3). negative: Wheezes, Rales, Rhonchi Abdomen: positive: Soft, Nml bowel sounds, Obese Skin: positive: Pallor, Dryness, Bruising (multiple bruises UE) Extremities: positive: No pedal edema Neurologic/Psychiatric: positive: Oriented x3, Mood/affect nml, Flat affect Palliative Care - POLST Patient has POLST: Yes POLST Status: DNR, Selective Treatment Pain: Pain worsening, Location (Reports generalized joint discomfort all over; bilateral knee pain), Comment (had been woresning but exacerbated with d/c of medrol no taper) Tiredness/Fatigue: Severe (7-10) Drowsiness/Sedation: Moderate (4-6) (sleeping more) Nausea: Mild (1-3) Anorexia: Moderate (4-6) Dyspnea: Moderate (4-6) Depression: Moderate (4-6) Anxiety: Mild (1-3) Feelings of wellbeing/Perceived Quality of Life: Fair, Acceptable, No change Sleep: Sleep improved, Variable sleep pattern Constipation: No Performance Status: Patient has improved functional status overall, but had a exacerbation with discontinuing his Medrol. He is ambulatory of several steps, trying to do his home exercise programs but not very motivated. He is mostly sedentary sitting in the chair. He has had no recent falls, his provides some assistance with ADLs. - Palliative Care Discussion: Patient is somewhat discouraged by his decline, and loss of further options for treatment of his metastatic prostate cancer. He is hopeful that FDA will approve pending treatment that supposedly would be a good match for his type of prostate cancer. He and his are doing fairly well, he does report some persistent depression, he has had major depression in the past. They are again to have a quiet holiday. Patient is a DO NOT RESUSCITATE DNI, and selective treatments. Continues to focus on both wanting to extend his life as well as quality of life. Results - Lab Results Lab results reviewed: Yes Lab and Imaging Results: PSA has increased 756 in January to March. Impression and Recommendations - Palliative Care Impression: This is a 70-year-old gentleman with known metastatic cancer of the prostate widespread to bones, known soft tissue nodules in the right upper lobe, and right hilar adenopathy. Patient recently seen oncology, and was discontinued off his Zytiga and Medrol, with no taper of his steroids. Patient is having some rebound fatigue and worsening overall joint and muscle pain. Patient's goals remain to be at independent as long as possible, as well as focus on quality of life and quantity of life. Palliative care will continue provide support for symptom management, advanced care planning, coordination of care and anticipatory guidance Recommendations/Counseling Done: 1. Acute on chronic pain. Patient has an exacerbation of joint and muscle pain, most likely related to his Medrol discontinuation as well as multifactorial in the context of concerns for inflammatory process from medications. The patient did get some relief with acetaminophen in the a.m. We discussed scheduling for the next couple weeks acetaminophen 500 mg 2 in the AM with meds and 2 at 5 PM with dinner. If patient's pain is equal or greater to 5/10, patient does have some Percocet, instructed to try half tab to 1 tab can use every 4 hours as needed. 2. Allergic rhinitis. Patient continues with clear drainage from his sinuses and quite annoying. Has used the Flonase intermittently. Instructed to use Flonase daily each nostril consistently to assist with management. 3. Hypertension. Patient's blood pressure today is 98/42, patient is somewhat symptomatic with dizziness. We will go ahead and discontinue spironolactone, patient without any signs or symptoms of fluid overload at this time. 4. Bruising on upper extremities. This is multifactorial, but is most likely going to improve off the Medrol. Did instruct to use Justine ointment/lotion forearms and shins and shoulders. Instructed to keep all of skin lotion and and moisturized to minimize tearing. 5. Metastatic prostate cancer. Patient continues to demonstrate some decline, they will be discontinuing the Zytiga and Medrol, will continue with his shots and Xgeva. Patient is hopeful that FDA approval of pending treatment from his understanding that would be appropriate in the future. 6. Generalized weakness. Patient has had a decline again his functional status, this is hopefully just temporary. Patient has been instructed to continue to do his home exercises, and to contact me when needs needs prescription for outpatient services. 7. Depression. Patient feeling somewhat homebound as he is been fairly homebound for about 2 years. Going out for doctors appointments only. We did discuss possibly going out for rides and more social interaction, though is wanting to stay safe secondary to Covid. We discussed car rides to get out of the house and change environment. We also were instructed on the use of light box for its role that can play and depression as well. Instructions given if plans to follow through. 8. 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 Patient shown and ordered pressure-relief cushion, reviewed how to use properly. Also instructed to use Aquaphor on dry blistered area. Instructed not to use the donut. Patient verbalized understanding. 9. Advanced care planning. Patient does have advanced care planning documents as well as POLST with DN AR/DNI and selective treatments completed. Patient short-term goals are to continue to improve strength and independence with long- term goals to remain at home for as long as possible and adjustment illness. 60 minutes with greater than 50% of this done in counseling regarding management of pain, weakness, skin care, coordination of care. And provided anticipatory guidance.
== END 2021-05-09 12:01 | disposition home or self-care (01) ==
LOC: PC 12:00
PROVIDERS: ATTEND Nurse Practitioner Adult Health
DX: Z51.5 Encounter for palliative care (principal); G89.3 Neoplasm related pain (acute) (chronic); C61 Malignant neoplasm of prostate; I10 Essential (primary) hypertension; J30.9 Allergic rhinitis, unspecified; R53.1 Weakness; F32.A Depression, unspecified; L89.152 Pressure ulcer of sacral region, stage 2; R53.83 Other fatigue; I48.91 Unspecified atrial fibrillation; Z79.01 Long term (current) use of anticoagulants; S40.022D Contusion of left upper arm, subsequent encounter; S40.021D Contusion of right upper arm, subsequent encounter
CPT/HCPCS: 99350

== ENCOUNTER 2021-05-29 14:09 | Inpatient (IN) | payer MEDICARE, OTHER ==
--- NOTE | 2021-05-29 14:46 | ED Physician Documentation ---
History of Present Illness - Stated complaint Stated Complaint: SOA/COLD SYMPTOMS - Chief complaint Chief Complaint: Resp - History obtained from History obtained from: Patient, Family - History of Present Illness Timing: How many weeks ago (1) Pain level max: 0 Pain level now: 0 - Additonal information Additional information: Patient is a 70-year-old male who presents to the emergency department via EMS and his . He has baseline confusion and is unable to give reliable history. Therefore the history is given by the . She states that he has had "cold symptoms" for the past week. She states that he has had increased difficulty breathing over the past week as well. Unable to lie flat. Does have a history of pleural effusions and congestive heart failure. She states he has recently had his medications adjusted, but she does not know which medications were adjusted or how they were adjusted. Patient has no fever. No chills. No chest pain. Patient currently has no complaints. Patient appears to be on dexamethasone, Vicodin, metoprolol, lisinopril, spironolactone, rosuvastatin, abiraterone, digoxin, Eliquis. Appears to have been on Lasix in the past. Review of Systems Unable to obtain: Dementia Constitutional: denies: Fever, Chills Respiratory: reports: Dyspnea. denies: Cough, Wheezing GI: denies: Abdominal Pain, Vomiting, Diarrhea Skin: denies: Rash Musculoskeletal: denies: Neck pain, Back pain Neurologic: denies: Headache PD PAST MEDICAL HISTORY - Past Medical History Cardiovascular: Congestive heart failure, Hypertension, Peripheral Vascular Disease Respiratory: None, Sleep apnea (improved with weight loss) Neuro: None, Peripheral neuropathy (unknown etiology; does NOT have diabeter) Endocrine/Autoimmune: None GI: None : Renal insuffiency, Kidney stones Psych: Depression Musculoskeletal: Osteoarthritis, Fatigue, Chronic back pain Derm: None - Past Surgical History Past Surgical History: Yes General: Other (Umbilical hernia repair) HEENT: Other (Deviated septum repair) - Present Medications Home Medications: Ambulatory Orders Medication Instructions Recorded Confirmed Alpha Lipoic Acid 50 tab PO DAILY 11/12/19 05/09/21 Multivit-Min/FA/Lycopen/Lutein 1 tab DAILY 11/12/19 05/09/21 [Centrum Silver Men Tablet] Duloxetine HCl 30 mg PO DAILY 01/18/20 05/09/21 buPROPion [Wellbutrin Sr] 150 mg PO BID 01/18/20 05/09/21 Loperamide [Imodium] 2 mg PO QID PRN capsule 01/25/20 05/09/21 Cholecalciferol (Vitamin D3) 1,000 unit PO DAILY 09/29/20 05/09/21 [Vitamin D3] Digoxin [Lanoxin] 125 mcg PO .Q 48 HOURS 09/29/20 05/09/21 Mecobalamin [B12 Active] 100 mcg PO DAILY 09/29/20 05/09/21 Metoprolol Succinate [Toprol Xl] 25 mg PO DAILY 09/29/20 05/09/21 Rosuvastatin Calcium [Crestor] 5 mg PO QPM 09/29/20 05/09/21 lisinopriL [Lisinopril] 2.5 mg PO QPM 09/29/20 05/09/21 Apixaban [Eliquis] 2.5 mg PO BID 02/02/21 05/09/21 Cetirizine [ZyrTEC] 10 mg PO DAILY 03/16/21 05/09/21 Fluticasone [Flonase] 1 spray NIKOLE DAILY 03/16/21 05/09/21 oxyCODONE/ACET 5/325 [Percocet 5 1 tab PO Q4HR PRN 05/09/21 05/09/21 mg/325 mg] - Allergies Allergies/Adverse Reactions: Allergies Allergy/AdvReac Type Severity Reaction Status Date / Time Penicillins Allergy Rash Verified 05/29/21 14:21 codeine AdvReac Unknown Verified 05/29/21 14:21 oxycodone HCl * AdvReac Dizziness Verified 05/29/21 14:21 [From OxyContin] - Social History Does the pt smoke?: No Smoking Status: Never smoker - POLST Patient has POLST: Yes POLST Status: Full Code PD ED PE NORMAL - Vitals Vital signs reviewed: Yes - General General: No acute distress, Well developed/nourished, Other (Alert, pleasant. Pale appearing. Oriented to person and place) - HEENT HEENT: PERRL, Ears normal, Moist mucous membranes, Pharynx benign - Neck Neck: Supple, no meningeal sign - Cardiac Cardiac: RRR, Strong equal pulses - Respiratory Respiratory: No respiratory distress, Other (Diminished breath sounds bilaterally with crackles) - Abdomen Abdomen: Soft, Non tender, Non distended - Derm Derm: Warm and dry - Extremities Extremities: Other (1+ bilateral lower extremity edema) - Neuro Neuro: No motor deficit, No sensory deficit - Psych Psych: Normal mood Results - Vitals Vitals: Vital Signs - 24 hr 05/29/21 05/29/21 05/29/21 14:18 14:21 15:33 Temperature 36.6 C 36.6 C Heart Rate 84 84 80 Respiratory 22 22 18 Rate Blood Pressure 122/49 L 122/49 L 125/50 L O2 Saturation 89 L 100 100 05/29/21 16:01 Temperature Heart Rate 96 Respiratory 23 Rate Blood Pressure 154/69 H O2 Saturation 97 Oxygen O2 Source Nasal cannula Oxygen Flow Rate 2 - EKG (time done) 1448 Rate: Rate (enter#) (81) Rhythm: NSR [place]: Normal Intervals: Prolonged SD QRS: Normal Ischemia: Normal ST segments - Labs Labs: Laboratory Tests 05/29/21 05/29/21 05/29/21 14:46 15:12 15:12 WBC 6.6 RBC 2.36 L Hgb 7.6 L Hct 23.8 L MCV 100.8 H MCH 32.2 H MCHC 31.9 L RDW 17.2 H Plt Count 148 MPV 8.6 Neut # (Auto) 4.1 Lymph # (Auto) 1.6 [place] # (Auto) 0.5 Eos # (Auto) 0.1 Baso # (Auto) 0.0 Absolute Nucleated RBC 0.04 Nucleated RBC % 0.6 Manual Slide Review Indicated Platelet Estimate NORMAL (130-450,000) Platelet Morphology NORMAL APPEARANCE RBC Morph Micro Appear 1+ BASO STIPPLING Sodium 139 Potassium 5.2 H Chloride 108 Carbon Dioxide 23 Anion Gap 8.0 BUN 43 H Creatinine 1.2 Estimated GFR (MDRD) 60 L Glucose 135 H Calcium 8.9 Total Bilirubin 0.4 AST 17 ALT 11 Alkaline Phosphatase 41 L Troponin I High Sens B-Natriuretic Peptide Total Protein 5.7 L Albumin 3.2 Globulin 2.5 Albumin/Globulin Ratio 1.3 Lipase 29 Urine Color Urine Clarity Urine pH Ur Specific Leivasy Urine Protein Urine Glucose (UA) Urine Ketones Urine Occult Blood Urine Nitrite Urine Bilirubin Urine Urobilinogen Ur Leukocyte Esterase Ur Microscopic Review Urine Culture Comments Nasal Adenovirus (PCR) NOT DETECTED Nasal B. parapertussis DNA (PCR) NOT DETECTED Nasal Coronavir 229E PCR NOT DETECTED Nasal Coronavir HKU1 PCR NOT DETECTED Nasal Coronavir NL63 PCR NOT DETECTED Nasal Coronavir OC43 PCR NOT DETECTED Nasal Enterovir/Rhinovir PCR NOT DETECTED Nasal Influenza B PCR NOT DETECTED Nasal Influenza A PCR NOT DETECTED Nasal Parainfluen 1 PCR NOT DETECTED Nasal Parainfluen 2 PCR NOT DETECTED Nasal Parainfluen 3 PCR NOT DETECTED Nasal Parainfluen 4 PCR NOT DETECTED Nasal RSV (PCR) NOT DETECTED Nasal B.pertussis DNA PCR NOT DETECTED Nasal C.pneumoniae (PCR) NOT DETECTED Nikole Human Metapneumo PCR NOT DETECTED Nasal M.pneumoniae (PCR) NOT DETECTED Nasal SARS-CoV-2 (PCR) NOT DETECTED Last Dose Date Last Dose Time Digoxin 05/29/21 05/29/21 05/29/21 15:12 15:12 15:12 WBC RBC Hgb Hct MCV MCH MCHC RDW Plt Count MPV Neut # (Auto) Lymph # (Auto) [place] # (Auto) Eos # (Auto) Baso # (Auto) Absolute Nucleated RBC Nucleated RBC % Manual Slide Review Platelet Estimate Platelet Morphology RBC Morph Micro Appear Sodium Potassium Chloride Carbon Dioxide Anion Gap BUN Creatinine Estimated GFR (MDRD) Glucose Calcium Total Bilirubin AST ALT Alkaline Phosphatase Troponin I High Sens 8.7 B-Natriuretic Peptide 826 H Total Protein Albumin Globulin Albumin/Globulin Ratio Lipase Urine Color Urine Clarity Urine pH Ur Specific Leivasy Urine Protein Urine Glucose (UA) Urine Ketones Urine Occult Blood Urine Nitrite Urine Bilirubin Urine Urobilinogen Ur Leukocyte Esterase Ur Microscopic Review Urine Culture Comments Nasal Adenovirus (PCR) Nasal B. parapertussis DNA (PCR) Nasal Coronavir 229E PCR Nasal Coronavir HKU1 PCR Nasal Coronavir NL63 PCR Nasal Coronavir OC43 PCR Nasal Enterovir/Rhinovir PCR Nasal Influenza B PCR Nasal Influenza A PCR Nasal Parainfluen 1 PCR Nasal Parainfluen 2 PCR Nasal Parainfluen 3 PCR Nasal Parainfluen 4 PCR Nasal RSV (PCR) Nasal B.pertussis DNA PCR Nasal C.pneumoniae (PCR) Nikole Human Metapneumo PCR Nasal M.pneumoniae (PCR) Nasal SARS-CoV-2 (PCR) Last Dose Date UNKNOWN Last Dose Time UNKNOWN Digoxin < 0.2 05/29/21 15:59 WBC RBC Hgb Hct MCV MCH MCHC RDW Plt Count MPV Neut # (Auto) Lymph # (Auto) [place] # (Auto) Eos # (Auto) Baso # (Auto) Absolute Nucleated RBC Nucleated RBC % Manual Slide Review Platelet Estimate Platelet Morphology RBC Morph Micro Appear Sodium Potassium Chloride Carbon Dioxide Anion Gap BUN Creatinine Estimated GFR (MDRD) Glucose Calcium Total Bilirubin AST ALT Alkaline Phosphatase Troponin I High Sens B-Natriuretic Peptide Total Protein Albumin Globulin Albumin/Globulin Ratio Lipase Urine Color YELLOW Urine Clarity CLEAR Urine pH 5.0 Ur Specific Leivasy 1.020 Urine Protein NEGATIVE Urine Glucose (UA) NEGATIVE Urine Ketones NEGATIVE Urine Occult Blood NEGATIVE Urine Nitrite NEGATIVE Urine Bilirubin NEGATIVE Urine Urobilinogen 0.2 (NORMAL) Ur Leukocyte Esterase NEGATIVE Ur Microscopic Review NOT INDICATED Urine Culture Comments NOT INDICATED Nasal Adenovirus (PCR) Nasal B. parapertussis DNA (PCR) Nasal Coronavir 229E PCR Nasal Coronavir HKU1 PCR Nasal Coronavir NL63 PCR Nasal Coronavir OC43 PCR Nasal Enterovir/Rhinovir PCR Nasal Influenza B PCR Nasal Influenza A PCR Nasal Parainfluen 1 PCR Nasal Parainfluen 2 PCR Nasal Parainfluen 3 PCR Nasal Parainfluen 4 PCR Nasal RSV (PCR) Nasal B.pertussis DNA PCR Nasal C.pneumoniae (PCR) Nikole Human Metapneumo PCR Nasal M.pneumoniae (PCR) Nasal SARS-CoV-2 (PCR) Last Dose Date Last Dose Time Digoxin - Rads (name of study) Chest x-ray Radiology: Final report received, EMP read contemporaneously, See rad report (Cardiomegaly, moderate vascular congestion and worsening bibasilar pleural effusions with associated atelectasis and/or infiltrate.) PD MEDICAL DECISION MAKING - ED course Complexity details: reviewed results, re-evaluated patient, considered differential, d/w patient, d/w family, d/w sharepoint consultant ED course: Patient with what appears to be a CHF exacerbation with pulmonary edema. He is hypoxic, requiring 2 L of supplemental oxygen. 89% on room air. He is also anemic. Had a blood transfusion a few months ago. Likely anemia of chronic disease from his metastatic prostate cancer. Given IV Lasix here. Discussed the case with Dr. Genao, hospitalist who accepts This document was made in part using voice recognition software. While efforts are made to proofread this document, sound alike and grammatical errors may occur. Departure - Departure Disposition: 66 [facility] DC/Xfer Clinical Impression: Hypoxia, Symptomatic anemia, Prostate cancer metastatic to bone Pulmonary edema Qualifiers: Chronicity: acute Qualified Code(s): J81.0 - Acute pulmonary edema Congestive heart failure Qualifiers: Heart failure type: unspecified Heart failure chronicity: acute on chronic Qualified Code(s): I50.9 - Heart failure, unspecified Condition: Stable
--- NOTE | 2021-05-29 15:04 | XRAY Report ---
PROCEDURE: Chest 1 View X-Ray INDICATIONS: cough, hypoxia TECHNIQUE: One view of the chest was acquired. COMPARISON: 03/18/2021 FINDINGS: Right-sided Port-A-Cath in good position, unchanged. Heart size is enlarged, there is moderate vascular congestion and bibasilar pleural effusions noted. Bibasilar associated atelectasis and or infiltrate present as well. Osseous structures are normal. IMPRESSION: Cardiomegaly, moderate vascular congestion and worsening bibasilar pleural effusions with associated atelectasis and or infiltrate Reviewed by: Matias Werner MD on 05/29/2021 2:02 PM AKST Approved by: Matias Werner MD on 05/29/2021 2:02 PM AKST Station ID: [id number]
[2021-05-29] MEDS ORDERED: FUROSEMIDE 40 MG/4 ML VIAL IVP STA (15:10)
[2021-05-29 15:18] LABS: MEAN CORPUSCULAR HEMOGLOBIN 32.2 pg (27.0-31.0); MEAN CORPUSCULAR VOLUME 100.8 fL (80.0-94.0); MONOCYTES # (AUTO) 0.5 10^3/uL (0.0-1.0)
[2021-05-29 15:26] LABS: BASOPHILS % (AUTO) 0.3 %; EOSINOPHILS # (AUTO) 0.1 10^3/uL (0.0-0.7); EOSINOPHILS % (AUTO) 1.2 %; HCT - HEMATOCRIT 23.8 % (42.0-52.0); HGB - HEMOGLOBIN 7.6 g/dL (14.0-18.0); LYMPHOCYTES # (AUTO) 1.6 10^3/uL (1.5-3.5); LYMPHOCYTES % (AUTO) 24.4 %; MEAN CORPUSCULAR HGB CONC 31.9 g/dL (32.0-36.0); MEAN PLATELET VOLUME 8.6 fL (7.4-11.4); MONOCYTES % (AUTO) 7.4 %; NEUTROPHILS # (AUTO) 4.1 10^3/uL (1.5-6.6); NEUTROPHILS % (AUTO) 61.5 %; NRBC ABSOLUTE COUNT (AUTO) 0.04 x10^3/uL; NUCLEATED RED BLOOD CELLS AUTO 0.6 /100WBC; PLT - PLATELET COUNT 148 10^3/uL (130-450); RED BLOOD COUNT 2.36 10^6/uL (4.70-6.10); RED CELL DISTRIBUTION WIDTH 17.2 % (12.0-15.0); WHITE BLOOD COUNT 6.6 x10^3/uL (4.8-10.8)
[2021-05-29 15:35] LABS: ALBUMIN 3.2 g/dL (3.2-5.5); ALBUMIN/GLOBULIN RATIO 1.3 (1.0-2.2); BILIRUBIN,TOTAL 0.4 mg/dL (0.2-1.0); CALCIUM 8.9 mg/dL (8.5-10.3); CREATININE 1.2 mg/dL (0.6-1.2); POTASSIUM 5.2 mmol/L (3.5-5.0); TOTAL PROTEIN 5.7 g/dL (6.7-8.2)
[2021-05-29 15:44] LABS: DIGOXIN < 0.2 ng/mL
[2021-05-29 15:46] LABS: SLIDE REVIEW? Indicated
[2021-05-29 15:50] LABS: B. PARAPERTUSSIS- RESP PCR PAN NOT DETECTED; B. PERTUSSIS- RESP PCR PANEL NOT DETECTED; C. PNEUMONIAE- RESP PCR PANEL NOT DETECTED; CORONAVIRUS 229E-RESP PCR NOT DETECTED; CORONAVIRUS HKU1-RESP PCR NOT DETECTED; CORONAVIRUS NL63-RESP PCR NOT DETECTED; CORONAVIRUS OC43-RESP PCR NOT DETECTED; HUMAN METAPNEUMOVIRUS NOT DETECTED; INFLUENZA A- RESP PCR PANEL NOT DETECTED; INFLUENZA B - RESP PCR PANEL NOT DETECTED; M. PNEUMONIAE- RESP PCR PANEL NOT DETECTED; PARAINFLUENZA VIRUS 1 NOT DETECTED; PARAINFLUENZA VIRUS 2 NOT DETECTED; PARAINFLUENZA VIRUS 3 NOT DETECTED; PARAINFLUENZA VIRUS 4 NOT DETECTED; RHINOVIRUS/ENTEROVIRUS NOT DETECTED; RSV- RESP PCR PANEL NOT DETECTED; SARS-CoV-2 -RESP PCR PANEL NOT DETECTED
[2021-05-29 15:54] LABS: PLATELET ESTIMATE, MANUAL NORMAL (130-450,000) (NORMAL); PLATELET MORPHOLOGY NORMAL APPEARANCE (NORMAL)
[2021-05-29 16:12] LABS: BILIRUBIN,URINE NEGATIVE (NEGATIVE); GLUCOSE, URINE (UA) NEGATIVE (NEGATIVE); KETONES,URINE (UA) NEGATIVE (NEGATIVE); LEUKOCYTE ESTERASE, URINE NEGATIVE (NEGATIVE); NITRITE,URINE NEGATIVE (NEGATIVE); OCCULT BLOOD,URINE NEGATIVE (NEGATIVE); PROTEIN,URINE NEGATIVE (NEGATIVE); UROBILINOGEN,URINE 0.2 (NORMAL) E.U./dL (NORMAL)
[2021-05-29 16:14] LABS: CLARITY,URINE CLEAR (CLEAR)
[2021-05-29] MEDS ORDERED: SODIUM CHLORIDE FLUSH 0.9% 10 ML SYRINGE IVP PRN (16:59)
[2021-05-29] MEDS ORDERED: ZOLPIDEM 5 MG TABLET PO PRN (17:10)
[2021-05-29] MEDS ORDERED: ONDANSETRON ODT 4 MG TABLET TL PRN (17:10)
--- NOTE | 2021-05-29 19:11 | HISTORY & PHYSICAL EXAMINATION ---
Chief Complaint - Chief Complaint Chief Complaint: dyspnea History of Present Illness - Admitted From Admitted From:: [facility] ED - History Obtained From Records Reviewed: yes History obtained from: patient - History of Present Illness HPI Comment/Other: Patient is a 70-year-old male with history of prostate cancer with metastasis to the spine Who presented to the ED with dyspnea. His symptoms of dyspnea has been going on for the past 2 days. He is on the palliative care service and spoke with cardiology today who advised him to come to the ED for evaluation. In the ED he was noted to have an oxygen saturation of 89% on room air. Chest x- ray showed cardiomegaly, moderate vascular congestion and worsening bibasilar pleural effusion with associated atelectasis or infiltrate. He also had a BNP of 826. Result of the findings he was presented for admission for further treatment. At bedside he is resting comfortably in bed. He has 2 L of oxygen via nasal cannula on with oxygen saturation at 98%. He has extensive bruising in his u pper extremities which he states is due to steroids. He has been on chemotherapy for 6 years and has been taking steroids during this time. On the week of May 2021 he was taken off steroids due to significant bruising and concern for further bleeding. He denies chest pain, abdominal pain, nausea, vomiting, fever or chills. He does not have lower extremity edema. Breath sounds are clear to auscultation. He was given a dose of Lasix in the ED. History - Past Medical History Cardiovascular: reports: Congestive heart failure, Hypertension, Peripheral Vascular Disease Respiratory: reports: None, Sleep apnea Neuro: reports: None, Peripheral neuropathy Endocrine/Autoimmune: reports: None GI: reports: None : reports: Renal insuffiency, Kidney stones Psych: reports: Depression Musculoskeletal: reports: Osteoarthritis, Fatigue, Chronic back pain Derm: reports: None MRSA Hx?: No - Past Surgical History General: reports: Other HEENT: reports: Other - Family & Social History Family History: Mother: , CAD (heart failure 95), Father: , Alzheimer's Disease (father 82), Cancer (throat cancer 58), Brother: , Cancer Family History Comment/Other: His father from prostate cancer and Alzheimer's. His brother from throat cancer Living Situation: With spouse/s.o. Social History Notes: He denies using tobacco, alcohol or illicit substances - Substance History Use: Uses substance without health or social issues: Tobacco (hx), Alcohol (rare) - POLST Patient has POLST: Yes POLST Status: DNR Meds/Allgy - Home Medications Home Medications: Ambulatory Orders Medication Instructions Recorded Confirmed Alpha Lipoic Acid 50 tab PO DAILY 11/12/19 05/09/21 Multivit-Min/FA/Lycopen/Lutein 1 tab DAILY 11/12/19 05/09/21 [Centrum Silver Men Tablet] Duloxetine HCl 30 mg PO DAILY 01/18/20 05/09/21 buPROPion [Wellbutrin Sr] 150 mg PO BID 01/18/20 05/09/21 Loperamide [Imodium] 2 mg PO QID PRN capsule 01/25/20 05/09/21 Cholecalciferol (Vitamin D3) 1,000 unit PO DAILY 09/29/20 05/09/21 [Vitamin D3] Digoxin [Lanoxin] 125 mcg PO .Q 48 HOURS 09/29/20 05/09/21 Mecobalamin [B12 Active] 100 mcg PO DAILY 09/29/20 05/09/21 Metoprolol Succinate [Toprol Xl] 25 mg PO DAILY 09/29/20 05/09/21 Rosuvastatin Calcium [Crestor] 5 mg PO QPM 09/29/20 05/09/21 lisinopriL [Lisinopril] 2.5 mg PO QPM 09/29/20 05/09/21 Apixaban [Eliquis] 2.5 mg PO BID 02/02/21 05/09/21 Cetirizine [ZyrTEC] 10 mg PO DAILY 03/16/21 05/09/21 Fluticasone [Flonase] 1 spray NIKOLE DAILY 03/16/21 05/09/21 oxyCODONE/ACET 5/325 [Percocet 5 1 tab PO Q4HR PRN 05/09/21 05/09/21 mg/325 mg] - Allergies Allergies/Adverse Reactions: Allergies Allergy/AdvReac Type Severity Reaction Status Date / Time Penicillins Allergy Rash Verified 05/29/21 14:21 codeine AdvReac Unknown Verified 05/29/21 14:21 oxycodone HCl * AdvReac Dizziness Verified 05/29/21 14:21 [From OxyContin] Review of Systems - Constitutional Constitutional: reports: Fatigue, Weakness. denies: Fever, Chills - Eyes Eyes: denies: Pain - Ears, Nose & Throat Ears, Nose & Throat: denies: Ear pain, Sore throat - Cardiovascular Cariovascular: reports: Exertional dyspnea. denies: Irregular heart rate, Palpitations, Chest pain, Edema, Lightheadedness, Syncope - Respiratory Respiratory: reports: Wheezing, Orthopnea, SOB at rest, SOB with exertion. denies: Cough, Sputum production - Gastrointestinal Gastrointestinal: denies: Abdominal pain, Abdominal distention, Constipation, Diarrhea, Nausea, Vomiting - Genitourinary Genitourinary: denies: Dysuria, Frequency, Urgency, Hematuria - Musculoskeletal Musculoskeletal: reports: Back pain. denies: Muscle aches - Integumentary Integumentary: denies: Rash, Pruritis, Lesions, Dryness - Neurological Neurological: denies: General weakness, Focal weakness, Headache, Dizziness, Numbness - Psychiatric Psychiatric: denies: Depression, Anxiety - Endocrine Endocrine: denies: Polyuria, Polydypsia - Hematologic/Lymphatic Hematologic/Lymphatic: reports: Anemia, Bruising Prior Level of Functionality: Patient is independent of activities of daily living. He gets around using a walker or cane. Exam - Vital Signs Vital Signs: Vital Signs x48h Temp Pulse Resp BP Pulse Ox 05/29/21 18:30 36.6 C 80 14 116/56 L 98 05/29/21 18:15 86 21 122/55 L 98 05/29/21 17:30 36.7 C 05/29/21 17:26 84 13 115/52 L 100 05/29/21 16:01 96 23 154/69 H 97 05/29/21 15:33 80 18 125/50 L 100 05/29/21 14:21 36.6 C 84 22 122/49 L 100 05/29/21 14:18 36.6 C 84 22 122/49 L 89 L - Physical Exam General Appearance: positive: No acute distress, Alert Eyes Bilateral: positive: PERRL, EOMI ENT: positive: No signs of dehydration Neck: positive: No JVD, Trachea midline Respiratory: positive: Chest non-tender, No respiratory distress, Breath sounds nml. negative: Wheezes, Rales, Rhonchi Cardiovascular: positive: Regular rate & rhythm, No murmur Abdomen: positive: Non-tender, No organomegaly, Nml bowel sounds, No distention. negative: Guarding, Rebound Back: positive: Nml inspection Skin: positive: Color nml, Warm, Other (Extensive bruising in upper extremities) Extremities: positive: Non-tender, Full ROM, Nml appearance, No pedal edema Neurologic/Psychiatric: positive: Oriented x3, Mood/affect nml Conclusion/Plan - Problem List (1) CHF exacerbation Conclusion/Plan: Chest x-ray showed cardiomegaly, moderate vascular congestion and worsening bibasilar pleural effusion with associated atelectasis or infiltrate. He also had a BNP of 826. Patient was given Lasix 40 mg IV x1 in the ED. We will continue Lasix 40 mg IV daily. Metoprolol succinate 25 mg p.o. daily and digoxin 125 mcg p.o. every 48 hours. We will check digoxin level. Low sodium diet On 2 L of oxygen via nasal cannula. (2) Hypoxia Conclusion/Plan: Likely multifactorial. Secondary to CHF exacerbation and anemia. Patient is being diuresed with Lasix IV. Will monitor H&H. If hemoglobin is less than 7 will transfuse 1 unit of packed red blood cell. (3) Atrial fibrillation Conclusion/Plan: On metoprolol succinate 25 mg p.o. daily and digoxin 125 mcg p.o. every 48 hours. We will check digoxin level before reordering. We will continue metoprolol. Eliquis held due to hemoglobin of 7.6 and significant bruising in upper extremities bilaterally. (4) Prostate cancer metastatic to bone Conclusion/Plan: Oncologist is Dr. Sheeba Cuevas. His Medrol and Zytiga were recently discontinued due to worsening bruises on upper extremities. Patient is currently on palliative care and seen by Maren Rivera. (5) Anemia Conclusion/Plan: Macrocytic anemia. Hemoglobin is 7.6. MCV is 100.8. Hemoglobin 2 months ago was 9.9. Patient takes vitamin B12 at home. We will check B12, folate levels and Iron studies. We will continue to monitor hemoglobin. If it drops less than 7 will transfuse packed red blood cells We will hold Eliquis for now. Will check INR. Qualifiers: Anemia type: other cause Other causes of anemia: antineoplastic chemotherapy Qualified Code(s): D64.81 - Anemia due to antineoplastic chemotherapy; T45.1X5A - Adverse effect of antineoplastic and immunosuppressive drugs, initial encounter (6) Depression Conclusion/Plan: On Wellbutrin and duloxetine. - Lab Results Fish Bones: 05/29/21 15:12 05/29/21 15:12 Core Measures - Anticipated LOS I expect patient to be DC'd or transferred within 96 hours.: Yes - DVT/VTE - Prophylaxis VTE/DVT Device ordered at admit?: Yes VTE/DVT Prophylaxis med ordered at admit?: No
[2021-05-29] MEDS: SODIUM CHLORIDE FLUSH 0.9% 10 ML SYRINGE IVP SCH (23:30)
[2021-05-30] MEDS: SODIUM CHLORIDE FLUSH 0.9% 10 ML SYRINGE IVP SCH ×3 (05:31→20:22)
[2021-05-30 06:46] LABS: BASOPHILS % (AUTO) 0.1 %; EOSINOPHILS % (AUTO) 0.6 %; HCT - HEMATOCRIT 22.6 % (42.0-52.0); HGB - HEMOGLOBIN 7.3 g/dL (14.0-18.0); LYMPHOCYTES % (AUTO) 22.5 %; MEAN CORPUSCULAR HEMOGLOBIN 32.4 pg (27.0-31.0); MEAN CORPUSCULAR HGB CONC 32.3 g/dL (32.0-36.0); MEAN CORPUSCULAR VOLUME 100.4 fL (80.0-94.0); MEAN PLATELET VOLUME 8.7 fL (7.4-11.4); MONOCYTES % (AUTO) 9.3 %; NEUTROPHILS % (AUTO) 61.2 %; PLT - PLATELET COUNT 144 10^3/uL (130-450); RED BLOOD COUNT 2.25 10^6/uL (4.70-6.10); RED CELL DISTRIBUTION WIDTH 17.2 % (12.0-15.0); WHITE BLOOD COUNT 7.1 x10^3/uL (4.8-10.8)
[2021-05-30 06:48] LABS: SLIDE REVIEW? Indicated
[2021-05-30 06:49] LABS: ABNORMAL LYMPHS % (MANUAL) 0 %
[2021-05-30 06:55] LABS: CALCIUM 8.6 mg/dL (8.5-10.3); CREATININE 1.4 mg/dL (0.6-1.2); POTASSIUM 4.7 mmol/L (3.5-5.0)
[2021-05-30 06:56] LABS: % IRON SATURATION 39 % (20-50); IRON 94 ug/dL (45-182); TOTAL IRON BINDING CAPACITY 242 ug/dL (250-450); TRANSFERRIN 173 mg/dL (180-329)
[2021-05-30 06:59] LABS: DIGOXIN < 0.2 ng/mL
[2021-05-30 07:56] LABS: FOLATE > 49.60 ng/mL (5.90 - >24.8)
[2021-05-30 08:03] LABS: BAND NEUTROPHILS % (MANUAL) 7 %; EOSINOPHILS # (MANUAL) 0.1 10^3/uL (0-0.7); LYMPHOCYTES # (MANUAL) 1.6 10^3/uL (1.5-3.5); LYMPHOCYTES % (MANUAL) 23 %; METAMYELOCYTES % (MANUAL) 3 %; MONOCYTES # (MANUAL) 0.1 10^3/uL (0.0-1.0); MYELOCYTES % (MANUAL) 1 %; NEUTROPHILS # (MANUAL) 4.9 10^3/uL (1.5-6.6)
[2021-05-30 08:11] LABS: PLATELET ESTIMATE, MANUAL NORMAL (130-450,000) (NORMAL); PLATELET MORPHOLOGY NORMAL APP (NORMAL)
[2021-05-30 08:12] LABS: DIFFERENTIAL COMMENT MANUAL DIFFERENTIAL; WBC MORPHOLOGY (MULTIPLE) NORMAL APP (NORMAL)
[2021-05-30] MEDS: METOPROLOL SUCCINATE 25 MG TABLET PO SCH (09:23)
[2021-05-30] MEDS: FUROSEMIDE 40 MG/4 ML VIAL IVP SCH (09:23)
[2021-05-30 09:52] LABS: INR 1.4 (0.8-1.2); PT - PROTHROMBIN TIME 15.1 secs (9.9-12.6)
--- NOTE | 2021-05-30 11:25 | PROVIDER PROGRESS NOTE ---
Assessment/Plan - Problem List (1) CHF exacerbation Assessment/Plan: Chest x-ray showed cardiomegaly, moderate vascular congestion and worsening bibasilar pleural effusion with associated atelectasis or infiltrate. He also had a BNP of 826, today only slightly better at 799. 16 months ago he had an Echo that showed EF of 30 to 40%. Unfortunately the Echo department is closed for the holiday week and we cannot repeat an Echo at this time. I told the patient this, and he said there is an Echo scheduled for 06/19/21, through Dr De Santiago office. Patient is getting Lasix 40 mg IV daily, Metoprolol succinate 25 mg p.o. daily and digoxin 125 mcg p.o. every 48 hours. We are following his digoxin level. Also ordered a Low sodium diet, following I's and O's. He needed 2 L of oxygen via nasal cannula. Will today restart his nightly lisinopril and his daily spironolactone 12.5 mg (2) Symptomatic Anemia Conclusion/Plan: Macrocytic anemia, MCV is 100.8. Hemoglobin 2 months ago was 9.9, yesterday 7.6, this morning 7.3, despite being 1L (-) in fluid balance from diuresis. Patient takes vitamin B12 at home and his B12 and folate levels are adequate. Will check Iron studies. We will continue to monitor hemoglobin q12h and if it drops less than 7 will transfuse packed red blood cells We will hold Eliquis for now, until a stool guaic is back and is neg. (3) Atrial fibrillation Conclusion/Plan: HR is controlled in the 80's on metoprolol succinate 25 mg p.o. daily and Digoxin 125 mcg p.o. every 48 hours. His digoxin level is not measurable at <0.2. We will continue metoprolol and qod Dig. Eliquis held due to hemoglobin of 7.6 and significant bruising in upper extremities bilaterally. (4) Prostate cancer metastatic to bone Conclusion/Plan: Oncologist is Dr. Sheeba Cuevas. Patient is also seen by palliative care, Maren Rivera NP His Medrol and Zytiga were recently discontinued due to worsening bruises on upper extremities. (5) Depression Conclusion/Plan: Will continue him on his Wellbutrin and duloxetine. (6) Acute on chronic Kidney disease His labs show that he runs creatinine 1.2-2.2 over the last 1 year. Currently the creatinine is 1.4. Avoid nephrotoxins. Will carefully continue with the IV Lasix, restart the spironolactone and lisinopril (7) Hypoxia Conclusion/Plan: Resolved. Likely multifactorial, secondary to CHF exacerbation and anemia. Patient is being diuresed with Lasix IV. Will monitor H&H. If hemoglobin is less than 7 will transfuse 1 unit of packed red blood cell. He needed supplemental O2 at admission, today the saturations have improved to 94% on room air - Current Meds Current Meds: Current Medications Generic Name Dose Route Start Last Admin Trade Name Freq PRN Reason Stop Dose Admin Furosemide 40 mg 05/30/21 09:00 05/30/21 09:23 Furosemide 40 Mg/4 Ml Vial IVP 40 mg DAILY CROW Administration Metoprolol Succinate 25 mg 05/30/21 09:00 05/30/21 09:23 Metoprolol Succinate 25 Mg Tablet PO 25 mg DAILY CROW Administration Sodium Chloride 10 ml 05/29/21 17:00 05/30/21 09:23 Sodium Chloride Flush 0.9% 10 Ml Syringe IVP 10 ml 0100,0900,1700 CROW Administration - Lab Result Fish Bone Diagrams: 05/30/21 06:30 05/30/21 06:30 - Additional Planning My Orders: My Active Orders 05/30/21 14:00 HEMOGLOBIN AND HEMATOCRIT [HEME] Timed Subjective - Subjective Patient Reports: Shortness of Breath (Still feels air humger with speaking but n o lomger orthopneic.) Objective Vital Signs: Vital Signs - 24 hr 05/29/21 05/29/21 05/29/21 14:18 14:21 15:33 Temperature 36.6 C 36.6 C Heart Rate 84 84 80 Heart Rate [ Brachial] Respiratory 22 22 18 Rate Blood Pressure 122/49 L 122/49 L 125/50 L Blood Pressure [Right Brachial artery] O2 Saturation 89 L 100 100 05/29/21 05/29/21 05/29/21 16:01 17:26 17:30 Temperature 36.7 C Heart Rate 96 84 Heart Rate [ Brachial] Respiratory 23 13 Rate Blood Pressure 154/69 H 115/52 L Blood Pressure [Right Brachial artery] O2 Saturation 97 100 05/29/21 05/29/21 05/29/21 18:15 18:30 19:59 Temperature 36.6 C Heart Rate 86 80 85 Heart Rate [ Brachial] Respiratory 21 14 18 Rate Blood Pressure 122/55 L 116/56 L Blood Pressure [Right Brachial artery] O2 Saturation 98 98 05/29/21 05/30/21 23:50 08:10 Temperature 36.3 C L 36.3 C L Heart Rate Heart Rate [ 79 89 Brachial] Respiratory 16 20 Rate Blood Pressure Blood Pressure 115/53 L 142/54 H [Right Brachial artery] O2 Saturation 94 94 Oxygen O2 Source Room air Oxygen Flow Rate 2 I&O (Last 24 Hrs): Intake and Output Totals x24h 05/28/21 05/29/21 05/30/21 23:59 23:59 23:59 Intake Total 150 240 Output Total 900 450 Balance -750 -210 General: Alert, Oriented x3 HEENT: Mucous membr. moist/pink, Other (Pale. Voice hoarse.) Neck: Supple, No JVD Neuro: Alert, Non Focal Cardiovascular: Other (Irreg, 2-3/6 syst murmur at apex and LLSB.) Respiratory: Other (Diminishe breath sounds at both bases) Abdomen: Normal bowel sounds, Soft, No tenderness Extremities: No clubbing, No edema, No tenderness/swelling - Results Results: Laboratory Results WBC 7.1 x10^3/uL (4.8-10.8) 05/30/21 06:30 RBC 2.25 10^6/uL (4.70-6.10) L 05/30/21 06:30 Hgb 7.3 g/dL (14.0-18.0) L 05/30/21 06:30 Hct 22.6 % (42.0-52.0) L 05/30/21 06:30 MCV 100.4 fL (80.0-94.0) H 05/30/21 06:30 MCH 32.4 pg (27.0-31.0) H 05/30/21 06:30 MCHC 32.3 g/dL (32.0-36.0) 05/30/21 06:30 RDW 17.2 % (12.0-15.0) H 05/30/21 06:30 Plt Count 144 10^3/uL (130-450) 05/30/21 06:30 MPV 8.7 fL (7.4-11.4) 05/30/21 06:30 Neut # (Auto) Not Reportable 05/30/21 06:30 Lymph # (Auto) Not Reportable 05/30/21 06:30 [place] # (Auto) Not Reportable 05/30/21 06:30 Eos # (Auto) Not Reportable 05/30/21 06:30 Baso # (Auto) Not Reportable 05/30/21 06:30 Absolute Nucleated RBC Not Reportable 05/30/21 06:30 Total Counted 100 05/30/21 06:30 Band Neuts % (Manual) 7 % (0-10) 05/30/21 06:30 Abnorm Lymph % (Manual) 0 % 05/30/21 06:30 Metamyelocytes % 3 % (-0) H 05/30/21 06:30 Myelocytes % 1 % (-0) H 05/30/21 06:30 Nucleated RBC % Not Reportable 05/30/21 06:30 Neutrophils # (Manual) 4.9 10^3/uL (1.5-6.6) 05/30/21 06:30 Lymphocytes # (Manual) 1.6 10^3/uL (1.5-3.5) 05/30/21 06:30 Monocytes # (Manual) 0.1 10^3/uL (0.0-1.0) 05/30/21 06:30 Eosinophils # (Manual) 0.1 10^3/uL (0-0.7) 05/30/21 06:30 Basophils # (Manual) 0.0 10^3/uL (0-0.1) 05/30/21 06:30 Differential Comment MANUAL DIFFERENTIAL 05/30/21 06:30 Manual Slide Review Indicated 05/30/21 06:30 WBC Morphology NORMAL ALBERT (NORMAL) 05/30/21 06:30 Platelet Estimate NORMAL (130-450,000) (NORMAL) 05/30/21 06:30 Platelet Morphology NORMAL ALBERT (NORMAL) 05/30/21 06:30 RBC Morph Micro Appear 1+ OVALOCYTES (NORMAL) 3+ ANISOCYTOSIS (NORMAL) 1+ POLYCHROMASIA (NORMAL) 05/30/21 06:30 RBC Morph Micro Appear 1+ OVALOCYTES (NORMAL) 3+ ANISOCYTOSIS (NORMAL) 1+ POLYCHROMASIA (NORMAL) 05/30/21 06:30 RBC Morph Micro Appear 1+ OVALOCYTES (NORMAL) 3+ ANISOCYTOSIS (NORMAL) 1+ POLYCHROMASIA (NORMAL) 05/30/21 06:30 PT 15.1 secs (9.9-12.6) H 05/30/21 09:30 INR 1.4 (0.8-1.2) H 05/30/21 09:30 Sodium 138 mmol/L (135-145) 05/30/21 06:30 Potassium 4.7 mmol/L (3.5-5.0) 05/30/21 06:30 Chloride 104 mmol/L (101-111) 05/30/21 06:30 Carbon Dioxide 24 mmol/L (21-32) 05/30/21 06:30 Anion Gap 10.0 (6-13) 05/30/21 06:30 BUN 47 mg/dL (6-20) H 05/30/21 06:30 Creatinine 1.4 mg/dL (0.6-1.2) H 05/30/21 06:30 Estimated GFR (MDRD) 50 (>89) L 05/30/21 06:30 Glucose 122 mg/dL (70-100) H 05/30/21 06:30 Calcium 8.6 mg/dL (8.5-10.3) 05/30/21 06:30 Iron 94 ug/dL (45-182) 05/30/21 06:30 TIBC 242 ug/dL (250-450) L 05/30/21 06:30 % Saturation 39 % (20-50) 05/30/21 06:30 Transferrin 173 mg/dL (180-329) L 05/30/21 06:30 Total Bilirubin 0.4 mg/dL (0.2-1.0) 05/29/21 15:12 AST 17 IU/L (10-42) 05/29/21 15:12 ALT 11 IU/L (10-60) 05/29/21 15:12 Alkaline Phosphatase 41 IU/L (42-121) L 05/29/21 15:12 Troponin I High Sens 8.7 ng/L (2.3-19.7) 05/29/21 15:12 B-Natriuretic Peptide 799 pg/mL (5-100) H 05/30/21 06:30 Total Protein 5.7 g/dL (6.7-8.2) L 05/29/21 15:12 Albumin 3.2 g/dL (3.2-5.5) 05/29/21 15:12 Globulin 2.5 g/dL (2.1-4.2) 05/29/21 15:12 Albumin/Globulin Ratio 1.3 (1.0-2.2) 05/29/21 15:12 Lipase 29 U/L (22-51) 05/29/21 15:12 Vitamin B12 1159 pg/mL (180-914) H 05/30/21 06:30 Folate > 49.60 ng/mL (5.90 - >24.8) 05/30/21 06:30 Urine Color YELLOW 05/29/21 15:59 Urine Clarity CLEAR (CLEAR) 05/29/21 15:59 Urine pH 5.0 PH (5.0-7.5) 05/29/21 15:59 Ur Specific [place] 1.020 (1.002-1.030) 05/29/21 15:59 Urine Protein NEGATIVE mg/dL (NEGATIVE) 05/29/21 15:59 Urine Glucose (UA) NEGATIVE mg/dL (NEGATIVE) 05/29/21 15:59 Urine Ketones NEGATIVE mg/dL (NEGATIVE) 05/29/21 15:59 Urine Occult Blood NEGATIVE (NEGATIVE) 05/29/21 15:59 Urine Nitrite NEGATIVE (NEGATIVE) 05/29/21 15:59 Urine Bilirubin NEGATIVE (NEGATIVE) 05/29/21 15:59 Urine Urobilinogen 0.2 (NORMAL) E.U./dL (NORMAL) 05/29/21 15:59 Ur Leukocyte Esterase NEGATIVE (NEGATIVE) 05/29/21 15:59 Ur Microscopic Review NOT INDICATED 05/29/21 15:59 Urine Culture Comments NOT INDICATED 05/29/21 15:59 Nasal Adenovirus (PCR) NOT DETECTED 05/29/21 14:46 Nasal B. parapertussis DNA (PCR) NOT DETECTED 05/29/21 14:46 Nasal Coronavir 229E PCR NOT DETECTED 05/29/21 14:46 Nasal Coronavir HKU1 PCR NOT DETECTED 05/29/21 14:46 Nasal Coronavir NL63 PCR NOT DETECTED 05/29/21 14:46 Nasal Coronavir OC43 PCR NOT DETECTED 05/29/21 14:46 Nasal Enterovir/Rhinovir PCR NOT DETECTED 05/29/21 14:46 Nasal Influenza B PCR NOT DETECTED 05/29/21 14:46 Nasal Influenza A PCR NOT DETECTED 05/29/21 14:46 Nasal Parainfluen 1 PCR NOT DETECTED 05/29/21 14:46 Nasal Parainfluen 2 PCR NOT DETECTED 05/29/21 14:46 Nasal Parainfluen 3 PCR NOT DETECTED 05/29/21 14:46 Nasal Parainfluen 4 PCR NOT DETECTED 05/29/21 14:46 Nasal RSV (PCR) NOT DETECTED 05/29/21 14:46 Nasal B.pertussis DNA PCR NOT DETECTED 05/29/21 14:46 Nasal C.pneumoniae (PCR) NOT DETECTED 05/29/21 14:46 Jose Human Metapneumo PCR NOT DETECTED 05/29/21 14:46 Nasal M.pneumoniae (PCR) NOT DETECTED 05/29/21 14:46 Nasal SARS-CoV-2 (PCR) NOT DETECTED 05/29/21 14:46 Last Dose Date UNK 05/30/21 06:30 Last Dose Time UNK 05/30/21 06:30 Digoxin < 0.2 ng/mL 05/30/21 06:30
[2021-05-30] MEDS ORDERED: DIGOXIN 125 MCG TABLET PO SCH (12:00)
[2021-05-30] MEDS ORDERED: HYDROcod/ACETAM 5/325 MG TABLET PO PRN (12:02)
[2021-05-30] MEDS: DULoxetine 30 MG CAPSULE PO SCH (12:31)
[2021-05-30] MEDS: SPIRONOLACTONE 25 MG TABLET PO SCH (12:31)
[2021-05-30 15:21] LABS: HCT - HEMATOCRIT 23.1 % (42.0-52.0); HGB - HEMOGLOBIN 7.4 g/dL (14.0-18.0)
[2021-05-30 15:39] LABS: FECAL OCCULT BLOOD (FIT) NEGATIVE (NEGATIVE)
[2021-05-30 15:42] LABS: % IRON SATURATION 44 % (20-50); IRON 109 ug/dL (45-182); TOTAL IRON BINDING CAPACITY 245 ug/dL (250-450); TRANSFERRIN 175 mg/dL (180-329)
--- NOTE | 2021-05-30 15:56 | PHARMACY PROGRESS NOTE ---
- Best Possible Medication History Admit Date and Time: 05/29/21 165 Processed by: Pharmacy Medication History completed: Yes Secondary Source(s): Physician records, Pharmacy records, Insurance records, Previous admit records As the person ultimately responsible for medication therapy, providers are able to order a medication from an existing home medication list in [facility] via the "Reconcile Routine" prior to Confirmation of that medication by patient support partner. Such practice is discouraged except when the physician, in their clinical judgment, deems that a medical need exists for a medication without regard to previous use.
[2021-05-30] MEDS: buPROPion SR 150 MG TABLET PO SCH (20:22)
[2021-05-30] MEDS ORDERED: MIN OIL/DIMETHICON/COCONUT OIL 92 GM TUBE TOP ONE (20:24)
[2021-05-30] MEDS ORDERED: lisinopriL 5 MG TABLET PO SCH (21:00)
[2021-05-31] MEDS: SODIUM CHLORIDE FLUSH 0.9% 10 ML SYRINGE IVP SCH ×2 (05:17→09:23)
[2021-05-31 05:51] LABS: BASOPHILS % (AUTO) 0.3 %; EOSINOPHILS % (AUTO) 1.4 %; HCT - HEMATOCRIT 23.5 % (42.0-52.0); HGB - HEMOGLOBIN 7.6 g/dL (14.0-18.0); LYMPHOCYTES % (AUTO) 35.7 %; MEAN CORPUSCULAR HEMOGLOBIN 32.2 pg (27.0-31.0); MEAN CORPUSCULAR HGB CONC 32.3 g/dL (32.0-36.0); MEAN CORPUSCULAR VOLUME 99.6 fL (80.0-94.0); MONOCYTES % (AUTO) 8.6 %; NEUTROPHILS % (AUTO) 48.4 %; PLT - PLATELET COUNT 143 10^3/uL (130-450); RED BLOOD COUNT 2.36 10^6/uL (4.70-6.10); RED CELL DISTRIBUTION WIDTH 17.2 % (12.0-15.0)
[2021-05-31 05:55] LABS: CALCIUM 8.8 mg/dL (8.5-10.3); CREATININE 1.3 mg/dL (0.6-1.2); POTASSIUM 3.9 mmol/L (3.5-5.0)
[2021-05-31 06:13] LABS: ABNORMAL LYMPHS % (MANUAL) 0 %
[2021-05-31 06:35] LABS: BAND NEUTROPHILS % (MANUAL) 10 %; EOSINOPHILS # (MANUAL) 0.1 10^3/uL (0-0.7); LYMPHOCYTES % (MANUAL) 29 %; METAMYELOCYTES % (MANUAL) 2 %; MONOCYTES # (MANUAL) 0.6 10^3/uL (0.0-1.0); MYELOCYTES % (MANUAL) 4 %; NEUTROPHILS # (MANUAL) 3.9 10^3/uL (1.5-6.6); PLATELET ESTIMATE, MANUAL NORMAL (130-450,000) (NORMAL); RBC MORPHOLOGY (MULTIPLE) NORMAL APPEARANCE (NORMAL)
[2021-05-31 06:36] LABS: DIFFERENTIAL COMMENT MANUAL DIFFERENTIAL
[2021-05-31 07:00] VITALS: BP 120/58
[2021-05-31] MEDS: SPIRONOLACTONE 25 MG TABLET PO SCH (09:12)
[2021-05-31] MEDS: DULoxetine 30 MG CAPSULE PO SCH (09:12)
[2021-05-31] MEDS: buPROPion SR 150 MG TABLET PO SCH (09:12)
[2021-05-31] MEDS: METOPROLOL SUCCINATE 25 MG TABLET PO SCH (09:13)
[2021-05-31] MEDS: FUROSEMIDE 40 MG/4 ML VIAL IVP SCH (09:15)
--- NOTE | 2021-05-31 14:34 | Discharge Plan ---
Discharge Plan Problem Reviewed?: Yes Disposition: Home, Self Care Condition: Fair Prescriptions: Docusate Sodium [Dulcolax Stool Softener] 100 mg PO DAILY #30 cap Ferrous Bis-Glycinate Chelate [Iron Glycinate] 29 mg PO DAILY #30 cap Diet: Low Sodium Activity Restrictions: Activity as Tolerated Shower Restrictions: No Driving Restrictions: No Weight Bearing: Full Weight Instruction Topics: Oxygen Home Use Health Concerns: You were hospitalized for CHF exacerbation which caused fluid in the lungs. We also found you have significant anemia adding to your shortness of breath. You have been started on iron replacement therapy to help with this, plus stool softeners. New prescriptions were electronically sent to your [facility] pharmacy in [place]. You were tested for needing supplemental oxygen and you do need home oxygen, set at 3 L/min whenever you have activity, you may take it off when resting. Please resume all your other usual pre-hospital medications. Plan of Treatment: As above. Care Goals: Improvement in symptoms and stabilization are the goals. Assessment: The patient understands and is agreeable with the plan. Additional Instructions or Follow Up instructions: Please have a hospital follow-up appointment with your PCP in the next 1 to 2 weeks and keep your scheduled appointment with your web development instructor in the next 2 to 3 weeks. No Smoking: If you smoke, Please STOP! Call for help. Follow-up with: Avani Srinivasan MD [Physician No Access] -
--- NOTE | 2021-05-31 14:43 | DISCHARGE SUMMARY ---
Discharge Summary Admit Date: 05/29/21 Discharge Date: 05/31/21 Discharging Provider: Dr Amanda Kenny Code Status: Do Not Attempt Resuscitation Condition at Discharge: Fair Discharge Disposition: 01 Home, Self Care - HPI History of Present Illness: From the admission H&P of Dr. Patricia Anders: Patient is a 70-year-old male with history of prostate cancer with metastasis to the spine who presented to the ED with dyspnea. His symptoms of dyspnea has been going on for the past 2 days. He is on the palliative care service and spoke with cardiology today who advised him to come to the ED for evaluation. In the ED he was noted to have an oxygen saturation of 89% on room air. Chest x- ray showed cardiomegaly, moderate vascular congestion and worsening bibasilar pleural effusion with associated atelectasis or infiltrate. He also had a BNP of 826. Result of the findings he was presented for admission for further treatment. At bedside he is resting comfortably in bed. He has 2 L of oxygen via nasal cannula on with oxygen saturation at 98%. He has extensive bruising in his upper extremities which he states is due to steroids. He has been on chemotherapy for 6 years and has been taking steroids during this time. On the week of May 2021 he was taken off steroids due to significant bruising and concern for further bleeding. He denies chest pain, abdominal pain, nausea, vomiting, fever or chills. He does not have lower extremity edema. Breath sounds are clear to auscultation. He was given a dose of Lasix in the ED. - HOSPITAL COURSE Hospital Course: (1) CHF exacerbation Chest x-ray showed cardiomegaly, moderate vascular congestion and worsening bibasilar pleural effusion. He also had a BNP of 826. His last Echo here was 16 months ago that showed an LVEF of 30-40%. Unfortunately, the Echo department was closed for the holiday week and we could not repeat an Echo during this admiss ion. I told the patient this, and he said there is an Echo scheduled for 06/19/21, through Dr De Santiago office. We gave him IV Lasix and he had good diuresis, became negative 4 kilograms in weight and was negative in fluid balance. We continued his other cardiac medications. He was able to sleep sup ine without supplemental oxygen, on the day of discharge. He underwent an oxygen saturation test on the day of discharge: The patient was not hypoxic at rest on room air with O2 saturations of 95%. However, with exertion on room air, his O2 sats were 82%. On 2 L/min, his O2 sats were 86% with ambulation, on 3 L/min with ambulation his O2 sats were 92%. I am ordering home O2; he may be on room air at rest, but needs 3 L/min of O2 with exertion, to treat his heart failure. (2) Symptomatic Anemia He has macrocytic anemia, MCV is 100.8. Hemoglobin 2 months ago was 9.9, here it was 7.6>> 7.3>> 7.4, despite being 4L (-) in fluid balance from diuresis. His stool guaiac test was negative, therefore the Eliquis can continue. Patient takes vitamin B12 at home, and his B12 and folate levels were adequate. We checked his iron stores which are low. He was started and discharged on new iron replacement therapy once a day, along with stool softener daily. (3) Atrial fibrillation HR is controlled in the 80's on metoprolol succinate 25 mg p.o. daily and Digoxin 125 mcg p.o. every 48 hours. His digoxin level is not toxic, level was<0.2. Eliquis was held due to hemoglobin of 7.6 and significant bruising in upper extremities bilaterally. His stool guaiac test was negative, therefore the Eliquis can be resumed. (4) Prostate cancer metastatic to bone Oncologist is Dr. Sheeba Cuevas. Patient is also seen by palliative care, Maren Rivera NP. His Medrol and Zytiga were recently discontinued due to worsening bruises on upper extremities. (5) Depression We continued him on his Wellbutrin and Duloxetine. (6) Acute on chronic Kidney disease His labs show that he runs creatinine 1.2-2.2 over the last 1 year. Here his creat was 1.4. - ALLERGIES Allergies/Adverse Reactions: Allergies Allergy/AdvReac Type Severity Reaction Status Date / Time Penicillins Allergy Rash Verified 05/29/21 14:21 codeine AdvReac Unknown Verified 05/29/21 14:21 oxycodone HCl * AdvReac Dizziness Verified 05/29/21 14:21 [From OxyContin] - MEDICATIONS Home Medications: Ambulatory Orders Medication Instructions Recorded Confirmed Multivit-Min/FA/Lycopen/Lutein 1 tab PO DAILY 11/12/19 05/30/21 [Centrum Silver Men Tablet] Duloxetine HCl 30 mg PO DAILY 01/18/20 05/30/21 buPROPion [Wellbutrin Sr] 150 mg PO BID 01/18/20 05/30/21 Loperamide [Imodium] 2 mg PO QID PRN capsule 01/25/20 05/30/21 Digoxin [Lanoxin] 125 mcg PO Q48H 09/29/20 05/30/21 Mecobalamin [B12 Active] 100 mcg PO DAILY 09/29/20 05/30/21 Metoprolol Succinate [Toprol Xl] 50 mg PO DAILY 09/29/20 05/30/21 Rosuvastatin Calcium [Crestor] 5 mg PO QPM 09/29/20 05/30/21 lisinopriL [Lisinopril] 2.5 mg PO QPM 09/29/20 05/30/21 Apixaban [Eliquis] 2.5 mg PO BID 02/02/21 05/30/21 Cetirizine [ZyrTEC] 10 mg PO DAILY 03/16/21 05/30/21 Fluticasone [Flonase] 1 spray NIKOLE DAILY 03/16/21 05/30/21 Alpha Lipoic Acid 50 mg PO DAILY 05/30/21 05/30/21 Cholecalciferol [Vitamin D3] 25 mcg PO DAILY 05/30/21 05/30/21 HYDROcod/ACETAM 5/325 [[place] 5/325] 1 tab PO Q4H PRN 05/30/21 05/30/21 Spironolactone [Aldactone] 12.5 mg PO DAILY 05/30/21 05/30/21 dexAMETHasone [Decadron] 4 mg PO DAILYWM 05/30/21 05/30/21 Docusate Sodium [Dulcolax Stool 100 mg PO DAILY #30 cap 05/31/21 Softener] Ferrous Bis-Glycinate Chelate 29 mg PO DAILY #30 cap 05/31/21 [Iron Glycinate] - PHYSICAL EXAM AT DISCHARGE General Appearance: positive: No acute distress, Alert Eyes Bilateral: positive: Normal inspection, EOMI ENT: positive: ENT inspection nml, No signs of dehydration Neck: positive: Nml inspection, No JVD Respiratory: positive: No respiratory distress, Breath sounds nml Cardiovascular: positive: Regular rate & rhythm Abdomen: positive: Non-tender, No distention Skin: positive: Warm, Dry, Pallor Extremities: positive: Non-tender, No pedal edema, Other (Upper extremities show multiple large purple ecchymoses diffusely) Neurologic/Psychiatric: positive: Oriented x3, Motor nml, Sensation nml - LABS Result Diagrams: 05/31/21 05:42 05/31/21 05:42 - DIAGNOSTIC IMAGING Diagnostic Imaging Results: Final report reviewed - FOLLOW UP Follow Up: See PCP or Oncologist in the next 1 to 2 weeks for a hospital follow-up appointment, and keep the upcoming appointment with Insurance Defense Paralegal in 2-3 weeks. - TIME SPENT Time Spent in Discharge (Minutes): 45
[2021-05-31] MEDS ORDERED: FERROUS GLUCONATE 324 MG TABLET PO SCH (15:00)
== END 2021-05-31 16:25 | disposition home or self-care (01) | DRG 292 ==
LOC: EDUNIT# → ED 14:09 → MS2 16:59
PROVIDERS: ADMIT Internal Medicine; ATTEND Internal Medicine
DX: I11.0 Hypertensive heart disease with heart failure (principal); I13.0 Hypertensive heart and chronic kidney disease with heart failure and stage 1 through stage 4 chronic kidney disease, or unspecified chronic kidney disease; C79.51 Secondary malignant neoplasm of bone; D64.9 Anemia, unspecified; J90 Pleural effusion, not elsewhere classified; N17.9 Acute kidney failure, unspecified; Z20.822 Contact with and (suspected) exposure to COVID-19; I50.9 Heart failure, unspecified; N18.9 Chronic kidney disease, unspecified; R09.02 Hypoxemia; F03.90 Unspecified dementia, unspecified severity, without behavioral disturbance, psychotic disturbance, mood disturbance, and anxiety; C61 Malignant neoplasm of prostate; G47.30 Sleep apnea, unspecified; D53.9 Nutritional anemia, unspecified; I48.91 Unspecified atrial fibrillation; R58 Hemorrhage, not elsewhere classified; Z79.01 Long term (current) use of anticoagulants; Z79.899 Other long term (current) drug therapy; Z66 Do not resuscitate; F32.A Depression, unspecified; I73.9 Peripheral vascular disease, unspecified; G62.9 Polyneuropathy, unspecified; Z87.891 Personal history of nicotine dependence
CPT/HCPCS: 36415; 71045; 80048; 80053; 80162; 81003; 82274; 82607; 82746; 83540; 83690; 83880; 84466; 84484; 85014; 85018; 85025; 85610; 86850; 86900; 86901; 86920; 87631; 93005; 94761; 96374; 99285; A6250; A9270; 0202U; 81001; 87086

== ENCOUNTER 2021-06-06 13:10 | Outpatient (CLI) | payer MEDICARE, OTHER ==
--- NOTE | 2021-06-06 17:31 | CONSULTATION NOTE ---
Palliative Care Follow Up - Referral Referring Provider: Dr. Sheeba Cuevas Time of Visit: [id number] Referral setting: Home Referral Reason: Met Prostate Ca with bone mets/anemia/CHF/hypoxia - Information Sources Records reviewed: Previous records reviewed History/Review of Systems obtained from: Patient, Family ( Randa present) Exam limitations: No limitations - History of Present Illness Update Brief HPI Update: This is a jose 70-year-old gentleman with metastatic prostate cancer, who continues to present as failure to thrive. He is awaiting approval for a medication that might be of help for his metastatic prostate cancer, but at this point has no further treatment options. He has had weight loss, increasing fatigue, and most recently now has developed bony pain. Had recently started him on dexamethasone 4 mg daily to help with pain management, as patient had tolerated oxycodone poorly with hallucinations though he did get some relief. At this point he is feeling quite comfortable, but did see radiation oncology yesterday with point tenderness on palpation and plan for a bone scan with ra diation and follow-up. Patient cannot be on the dexamethasone for long period of time, will need to be tapered off so will need alternative pain management approach. Patient had been admitted with a CHF exacerbation, patient had been complaining of cold symptoms for several days, unfortunately this happened over the holidays. Had made arrangements for labs and chest x-ray secondary to patient's symptoms, patient has been anemic in the past and has had heart failure exacerbations. Unfortunately with the snow and worsening symptoms, they did call 911 and he was admitted from 05/29-05/31. He was admitted with a B and P of 826, hypoxic, and macrocytic anemia with a 7.4 hemoglobin, on discharge was 7.6. His stool guaiac test was negative and has continued on his Eliquis. With his hypoxia, he has had more difficulty with atrial fib, he is fairly steady at rest as far as rate control, but with activity and exertion, he does desat into the low 80s, but recovers with oxygen. At rest his oxygen was 96%, but with any activity it dropped to 88. Patient is more breathless, dizzy with standing, very pale in color and has tolerated his anemia poorly. Unfortunately there is a blood shortage and are not transfusing unless symptomatic, it was crisis level at time during the hospitalization, most like would benefit from at least one unit He does have some fine expiratory crackles in his bases, no lower extremity edema, he had been diuresed fairly significantly with significant weight loss, today he is up 192.4, but is eating better I suspect is a side effect of the dexamethasone. Past Medical History: Osteoarthritis, hypertension, hypercholesteremia, peripheral neuropathy PTSD, major depressive disorder, PVD, CKD stage III, atrial fib on Eliquis, diabetes type 2, gout, hearing loss, obesity, prostate cancer 2016 with TURP, metastatic bone disease 2018 Social History - Living Situation Living arrangement: At home Living Situation: With spouse/s.o. Support System: Patient lives at home with his jose Randa, they have a daughter in [place] who does provide intermittent support. Recently their son moved to [place], but has provided medical advice and support over the phone, he is a medical claims manager. Patient had retired, but in his later years was in [facility]. Unfortunately he and his has not had much time to create community support in the context of COVID. Medications/Allergies - Medications Home Medications: Ambulatory Orders Medication Instructions Recorded Confirmed Multivit-Min/FA/Lycopen/Lutein 1 tab PO DAILY 11/12/19 05/30/21 [Centrum Silver Men Tablet] Duloxetine HCl 30 mg PO DAILY 01/18/20 05/30/21 buPROPion [Wellbutrin Sr] 150 mg PO BID 01/18/20 05/30/21 Loperamide [Imodium] 2 mg PO QID PRN capsule 01/25/20 05/30/21 Digoxin [Lanoxin] 125 mcg PO Q48H 09/29/20 05/30/21 Mecobalamin [B12 Active] 100 mcg PO DAILY 09/29/20 05/30/21 Metoprolol Succinate [Toprol Xl] 50 mg PO DAILY 09/29/20 05/30/21 Rosuvastatin Calcium [Crestor] 5 mg PO QPM 09/29/20 05/30/21 lisinopriL [Lisinopril] 2.5 mg PO QPM 09/29/20 05/30/21 Apixaban [Eliquis] 2.5 mg PO BID 02/02/21 05/30/21 Cetirizine [ZyrTEC] 10 mg PO DAILY 03/16/21 05/30/21 Fluticasone [Flonase] 1 spray NIKOLE DAILY 03/16/21 05/30/21 Alpha Lipoic Acid 50 mg PO DAILY 05/30/21 05/30/21 Cholecalciferol [Vitamin D3] 25 mcg PO DAILY 05/30/21 05/30/21 HYDROcod/ACETAM 5/325 [[place] 5/325] 1 tab PO Q4H PRN 05/30/21 05/30/21 Spironolactone [Aldactone] 12.5 mg PO DAILY 05/30/21 05/30/21 dexAMETHasone [Decadron] 4 mg PO DAILYWM 05/30/21 05/30/21 Docusate Sodium [Dulcolax Stool 100 mg PO DAILY #30 cap 05/31/21 Softener] Ferrous Bis-Glycinate Chelate 29 mg PO DAILY #30 cap 05/31/21 [Iron Glycinate] - Allergies Allergies/Adverse Reactions: Allergies Allergy/AdvReac Type Severity Reaction Status Date / Time Penicillins Allergy Rash Verified 05/29/21 14:21 codeine AdvReac Unknown Verified 05/29/21 14:21 oxycodone HCl * AdvReac Dizziness Verified 05/29/21 14:21 [From OxyContin] Review of Systems - Constitutional Constitutional: reports: Fatigue (worsening very limiting), Weakness (worsening mostly in recliner; walking short distances with walker; has had functional decline), Weight loss (192.4) - Eyes Eyes: reports: Vision loss, Corrective lenses - Ears, Nose & Throat Ears, Nose & Throat: reports: Hearing loss, Dry mouth - Cardiovascular Cardiovascular: reports: Lightheadedness (improved), Exertional dyspnea, Decr. exercise tolerance. denies: Chest pain, Edema - Respiratory Respiratory: reports: SOB with exertion, Other (newly on oxygen). denies: SOB at rest - Gastrointestinal Gastrointestinal: reports: Abdominal distention (mild), Early satiety (some improvement last few days). denies: Nausea, Reflux/heartburn - Genitourinary Genitourinary: reports: Frequency - Musculoskeletal Musculoskeletal: reports: Muscle aches, Stiffness, Muscle weakness, Assistive devices (using walker) - Integumentary Integumentary: reports: Dryness, Other (brusing on forearms/extensive; across abdomen and shins) - Neurological Neurological: reports: General weakness, Numbness (persistent/mild tingling), Abnormal gait - Psychiatric Psychiatric: reports: Depression, Anxiety (with worsening condition). denies: Suicidal - Endocrine Endocrine: reports: Diabetes type 2 - Hematologic/Lymphatic Hematologic/Lymph: reports: Anemia (7.9 yesterday), Bruising, Bleeding tendencies. denies: Recurrent infections - All Other Systems All Other Systems: reports: Reviewed and negative Physical Exam - Vital Signs Temperature: 97.3 C Pulse Rate: 72 (@rest; increase to 88 with activity; more irregular) Respiratory Rate: 18 (@ rets 22 with activity) O2 Saturation: 96 (@ rest with 3 liters; off oxygen 88 with activity; 5+ minutes to recover with ambulation of 30 feet) Blood Pressure: 118/52 (sitting 112/58 standing) - Physical Exam General Appearance: positive: No acute distress, Alert, Anxious Eyes Bilateral: positive: Normal inspection, No scleral icterus ENT: negative: No signs of dehydration (patient decreased intake; orthostatic with dizzyness and weakness) Neck: positive: No JVD, Trachea midline Cardiovascular: positive: Regular rate & rhythm Respiratory: positive: Diminished throughout, Rales (fine exp crackles bilat). negative: No respiratory distress (respiratory effort with activty), Wheezes, Rhonchi Abdomen: positive: Soft, Nml bowel sounds, Obese Skin: positive: Pallor, Dryness, Bruising (multiple bruises UE) Extremities: positive: No pedal edema Neurologic/Psychiatric: positive: Oriented x3, Mood/affect nml, Flat affect Palliative Care - POLST Patient has POLST: Yes POLST Status: DNR, Selective Treatment Pain: Pain improved, Location (side rib area/back/hips/knees), Comment (improved with dexamethasone) Tiredness/Fatigue: Severe (7-10) Drowsiness/Sedation: Mild (1-3) Nausea: None Anorexia: Mild (1-3) Dyspnea: Moderate (4-6) Depression: Mild (1-3) Anxiety: Moderate (4-6) Feelings of wellbeing/Perceived Quality of Life: Fair, Worsening Sleep: Variable sleep pattern Constipation: No Performance Status: Patient has had a significant decline in his functional status, this is been more acute over the last 2 weeks, is spending most of his time in recliner. is assisting more with ADLs, is using walker for unsteady or lengthier distances for ambulation. - Palliative Care Discussion: Patient does understand the seriousness of his illness, and that he is running out of options. He is hopeful to feel a little bit better, as far as quality of life. He does understand he is getting towards need to have more serious conversations regarding hospice or hospice support. He is hopeful he will be a few more things that can extend his time, at this point is still wanting to treat reversible conditions so does understand both his heart failure/atrial fib and prostate cancer are adding to his failure to thrive. They are meeting with oncology tomorrow, did call and speak with oncologist with latest report with patient's status. Patient does have POLST with DN AR/DNI and selective t reatments. We will continue to provide anticipatory guidance. Results - Lab Results Lab results reviewed: Yes Lab and Imaging Results: WBC 7.4; hgb 7.9 (d/c was 7.6) HCT 25.8 Impression and Recommendations - Palliative Care Impression: This is a 70-year-old gentleman with metastatic cancer of the prostate widespread to the bones, known soft tissue nodules in the right upper lobe, and right hilar adenopathy. Patient with recent hospitalization with acute exacerbation of his CHF, worsening anemia, and now presenting with hypoxia and oxygen dependent. Patient has had significant functional decline. Palliative care providing support for pain and symptom management, anticipatory guidance, and coordination of care. Recommendations/Counseling Done: 1. Pain of neoplastic origin. Patient had exacerbation of joint muscle pain, most likely related to discontinued patient is Medrol and multifactorial in the context for his bony mets. Did trial him on oxycodone, had hallucinations, switch to hydrocodone with acetaminophen, as well as started him on dexamethasone 4 mg with improvement of pain. Did contact oncology for referral to radiation oncology, she he did see the Dr. Ricardo and yesterday and will be receiving a bone scan with the hope for areas to target. Patient does need to have his dexamethasone titrated back down, hopefully with alternative pain management this will be successful. 2. CHF, acute on chronic. Patient did have an exacerbation, is most likely multifactorial including worsening anemia with recent atrial fibrillation. He was diuresed several pounds in the hospital, unfortunately was discharged secondary to hypoxia on home oxygen. After much testing, patient is instructed to wear most times, specifically secondary with activity his atrial fib, heart rate becomes more regular and he becomes quite hypoxic with activity. 3. Anemia. Patient did have a negative guaiac stool, thinking the anemia is attributed to his bony mets and chronic disease. Follow-up with Dr. Stef LOCO, regarding thresholds for oncology patients and transfusions, patient is unable to receive one at hospital secondary to critical blood shortage. He will be seeing patient tomorrow and will further evaluate, may be able is received 1 unit. Patient is significantly symptomatic and would benefit. 4. Metastatic prostate cancer with bony mets. Patient has no further treatment options, though they are waiting pending approval of an FDA medication that may be appropriate for patient. Patient's PSA continues to climb, patient is aware of the seriousness of his illness, but does have multiple comorbidities including heart failure and atrial fib. 5. Atrial fib. 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 No medications were changed at hospitalization. 6. Generalized weakness. Patient has had a rapid decline in his functional status, will see if he gets transfusion. May suggest restarting home physical therapy both for safety and deconditioning. 7. 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 Patient does have pressure relief cushion, had been improving, but was exacerbated in hospital. Does feel like he is making progress currently. 8. Advanced care planning. Patient does have POLST in place with DN AR/DNI and selective treatments. Patient has multiple comorbidities are adding to his high risk for further deterioration and decline. We will continue to provide support, patient does understand the seriousness of his current condition, but is hoping both for further quantity of life as well as quality. If patient were at end-of-life, he would like to be at home for that transition though. 60 minutes with greater than 50% of this and in counseling regarding pain and symptom management, coordination of care, instruction on oxygen therapy and use, review of medications and medication adherence and discharge from hospital, coordination of care with oncology team
== END 2021-06-06 13:11 | disposition home or self-care (01) ==
LOC: PC 13:10
PROVIDERS: ATTEND Nurse Practitioner Adult Health
DX: Z51.5 Encounter for palliative care (principal); G89.3 Neoplasm related pain (acute) (chronic); R62.7 Adult failure to thrive; R09.02 Hypoxemia; I50.9 Heart failure, unspecified; D64.9 Anemia, unspecified; I48.91 Unspecified atrial fibrillation; R53.83 Other fatigue; R53.1 Weakness; L89.152 Pressure ulcer of sacral region, stage 2; C61 Malignant neoplasm of prostate; C79.51 Secondary malignant neoplasm of bone; Z79.899 Other long term (current) drug therapy; Z79.52 Long term (current) use of systemic steroids; Z79.01 Long term (current) use of anticoagulants; Z99.81 Dependence on supplemental oxygen; Z66 Do not resuscitate
CPT/HCPCS: 99350

== ENCOUNTER 2021-06-20 07:43 | Outpatient (CLI) | payer MEDICARE | END 2021-06-20 07:44 | disposition EMS.NT | LOC: EMS 07:43 | DX: S51.812A Laceration without foreign body of left forearm, initial encounter (principal); W01.190A Fall on same level from slipping, tripping and stumbling with subsequent striking against furniture, initial encounter; Y93.89 Activity, other specified; Y92.002 Bathroom of unspecified non-institutional (private) residence as the place of occurrence of the external cause ==

== ENCOUNTER 2021-06-26 12:30 | Outpatient (CLI) | payer MEDICARE ==
--- NOTE | 2021-06-26 17:24 | CONSULTATION NOTE ---
Palliative Care Follow Up - Referral Referring Provider: Dr. Sheeba Cuevas Time of Visit: [id number] Referral setting: Home Referral Reason: FTT/Met Prostate CA with bone mets/anemia/CHF/hypoxia - Information Sources Records reviewed: Previous records reviewed History/Review of Systems obtained from: Patient, Family ( Randa) Exam limitations: Clinical condition (mild STM) - History of Present Illness Update Brief HPI Update: This is a jose 70-year-old gentleman with metastatic prostate cancer with bone mets, who continues to do fairly poorly. He is newly on oxygen, secondary to an admit for CHF exacerbation, and also continued anemia. He did receive a unit of packed red blood cells, but most recent labs on 119, still shown at 7.1. What was most remarkable as he continued with shortness of breath, and presented with moderate to large pleural effusions, atelectasis, and exacerbation of his pulmonary edema. He saw his automotive mechanic, who also had him do a echo, with ejection fraction of 65 to 70%, but again showed the bilateral pleural effusions.He did receive a thoracentesis on the right side on this last Saturday, for a total of 1500 mils removed. He is feeling somewhat better. He is still having continued trouble with bruising and bleeding, is currently off his Eliquis. Does have significant skin tear on his left forearm, currently covered by a dressing. He is having some increased discomfort with deep breathing, but overall feeling much better. He is having some lightheadedness, of note Dr. Srinivasan put him on furosemide 20 mg daily, his blood pressure this morning was 89/42. For me currently is 112/58. He has lost 10 pounds with initiation of the furosemide 20 mg, today presents at 182.6, and appears quite dry. We will go ahead and have him hold his furosemide if his blood pressure is less than 100. He is lightheaded,. Patient did see radiation oncology, they did not find any lesions to kelvin in on, but will be curious as he comes off his dexamethasone if his pain returns. He does have some slight pain in his right jaw area that is managed with acetaminophen. Has not needed any opioid use. Patient is breathing easier with the thoracentesis, his oxygen sats on 3 L were 99%, with ambulation 98%. He is having bloody noses, I suspect it has to do with the oxygen. I did test him off of oxygen, even with ambulation he only dropped down to about 94%. Did decrease patient's oxygen to 2 L, he stayed steady between 96 to 97% at rest. Instructed only to increase oxygen for activity if short of breath. Past Medical History: Osteoarthritis, hypertension, hypercholesteremia, peripheral neuropathy, PTSD, major depressive disorder, PVD, CKD D stage III, atrial fib currently off Eliquis, diabetes type 2, gout, hearing loss, obesity, prostate cancer 2016 with TURP, metastatic disease to the bone 2017 Social History - Living Situation Living arrangement: At home Living Situation: With spouse/s.o. Support System: Patient lives with his jose Randa, they have a daughter in [place] who provides intermittent support. Patient is retired and his later years was [employer]. They are fairly isolated as they came right during the time period of Covid. Medications/Allergies - Medications Home Medications: Ambulatory Orders Medication Instructions Recorded Confirmed Multivit-Min/FA/Lycopen/Lutein 1 tab PO DAILY 11/12/19 06/26/21 [Centrum Silver Men Tablet] Duloxetine HCl 30 mg PO DAILY 01/18/20 06/26/21 buPROPion [Wellbutrin Sr] 150 mg PO BID 01/18/20 06/26/21 Loperamide [Imodium] 2 mg PO QID PRN capsule 01/25/20 06/26/21 Digoxin [Lanoxin] 125 mcg PO Q48H 09/29/20 06/26/21 Metoprolol Succinate [Toprol Xl] 50 mg PO DAILY 09/29/20 06/26/21 Rosuvastatin Calcium [Crestor] 5 mg PO QPM 09/29/20 06/26/21 lisinopriL [Lisinopril] 2.5 mg PO QPM 09/29/20 06/26/21 Cetirizine [ZyrTEC] 10 mg PO DAILY PRN 03/16/21 06/26/21 Fluticasone [Flonase] 1 spray NIKOLE DAILY 03/16/21 06/26/21 Alpha Lipoic Acid 50 mg PO DAILY 05/30/21 06/26/21 Cholecalciferol [Vitamin D3] 2,000 unit PO DAILY 05/30/21 06/26/21 HYDROcod/ACETAM 5/325 [[place] 5/325] 1 tab PO Q4H PRN 05/30/21 06/26/21 Spironolactone [Aldactone] 12.5 mg PO DAILY 05/30/21 06/26/21 dexAMETHasone [Decadron] 4 mg PO DAILYWM MDD consider taper 05/30/21 06/26/21 Docusate Sodium [Dulcolax Stool 100 mg PO DAILY #30 cap 05/31/21 06/26/21 Softener] Ferrous Bis-Glycinate Chelate 29 mg PO DAILY #30 cap 05/31/21 06/26/21 [Iron Glycinate] Abiraterone Acetate [Zytiga] 250 mg PO DAILY 06/26/21 06/26/21 Furosemide [Lasix] 20 mg PO DAILY MDD hold < 100/50 06/26/21 06/26/21 Vitamin B Complex/Folic Acid 1 tab PO DAILY 06/26/21 06/26/21 [B-Complex Tablet] - Allergies Allergies/Adverse Reactions: Allergies Allergy/AdvReac Type Severity Reaction Status Date / Time Penicillins Allergy Rash Verified 05/29/21 14:21 codeine AdvReac Unknown Verified 05/29/21 14:21 oxycodone HCl * AdvReac Dizziness Verified 05/29/21 14:21 [From OxyContin] Review of Systems - Constitutional Constitutional: reports: Fatigue (worsening very limiting), Weakness (worsening mostly in recliner; walking short distances with walker; has had functional decline), Weight loss (192.4 last visit ' now 182 since lasix) - Eyes Eyes: reports: Vision loss, Corrective lenses - Ears, Nose & Throat Ears, Nose & Throat: reports: Hearing loss, Dental pain (right jaw), Dry mouth - Cardiovascular Cardiovascular: reports: Lightheadedness (worsened over last 2-3 days), Exertional dyspnea, Decr. exercise tolerance. denies: Chest pain, Edema - Respiratory Respiratory: reports: SOB with exertion, Other (newly on oxygen). denies: SOB at rest - Gastrointestinal Gastrointestinal: reports: Abdominal distention (mild), Early satiety (some improvement last few days). denies: Nausea, Reflux/heartburn - Genitourinary Genitourinary: reports: Frequency - Musculoskeletal Musculoskeletal: reports: Muscle aches, Stiffness, Muscle weakness, Assistive devices (using walker) - Integumentary Integumentary: reports: Dryness, Other (brusing on forearms/extensive; across abdomen and shins; now with skin tear 06/20 had EMS call because of bleeding) - Neurological Neurological: reports: General weakness, Numbness (persistent/mild tingling), Abnormal gait - Psychiatric Psychiatric: reports: Depression, Anxiety (with worsening condition). denies: Suicidal - Endocrine Endocrine: reports: Diabetes type 2 - Hematologic/Lymphatic Hematologic/Lymph: reports: Anemia (7.1 06/21), Bruising, Bleeding tendencies, Other (worsening bloody noses). denies: Recurrent infections - All Other Systems All Other Systems: reports: Reviewed and negative Physical Exam - Vital Signs Temperature: 97.2 C Pulse Rate: 73 Respiratory Rate: 18 O2 Saturation: 99 (3 liters) Blood Pressure: 112/58 - Physical Exam General Appearance: positive: No acute distress, Alert, Anxious Eyes Bilateral: positive: Normal inspection, No scleral icterus ENT: positive: No signs of dehydration (patient appears dehyrated from diuretic) Neck: positive: No JVD, Trachea midline Cardiovascular: positive: Regular rate & rhythm Respiratory: positive: Diminished throughout, Rales (fine exp crackles bilat). negative: No respiratory distress (respiratory effort with activty), Wheezes, Rhonchi Abdomen: positive: Soft, Nml bowel sounds, Obese Skin: positive: Pallor, Dryness, Bruising (multiple bruises UE) Extremities: positive: No pedal edema Neurologic/Psychiatric: positive: Oriented x3, Mood/affect nml, Weakness, Flat affect Palliative Care - POLST Patient has POLST: Yes POLST Status: DNR, Selective Treatment Pain: Pain improved, Location (overall; bilat ribs/back) Tiredness/Fatigue: Severe (7-10) Drowsiness/Sedation: Moderate (4-6) (taking naps) Nausea: None Anorexia: Moderate (4-6), Weight loss Dyspnea: Moderate (4-6) Depression: Moderate (4-6) Anxiety: Moderate (4-6) Feelings of wellbeing/Perceived Quality of Life: Fair, Acceptable, Improved Sleep: Sleep improved, Variable sleep pattern Constipation: No Performance Status: Patient with increased weakness and shakiness, feeling lightheaded. Suspect patient is dry from diuretics and with worsening anemia. Is very careful with his walking, using walker. Does need some assistance with his ADLs. Is mostly sedentary and sits in the recliner. - Palliative Care Discussion: Patient is feeling somewhat relieved with the thoracentesis, as he continues to decline both functionally and worried about the seriousness of his illness. He did have a drop in his PSA, but continues to be quite limited. They are both feeling very vulnerable, as patient's health declines. Continues to want to hope for the best, holding out for latest treatment, but is recognizing things are getting more difficult. Results - Lab Results Lab results reviewed: Yes Impression and Recommendations - Palliative Care Impression: This is a 70-year-old gentleman with metastatic cancer of the prostate widespread to the bones, known soft tissue nodules in the right upper lobe, right hilar adenopathy and recently worsening bilateral pleural effusions. He did receive some relief with thoracentesis, is responding to his furosemide with a 10 pound weight loss for CHF, continues with worsening anemia of 06/21 7.1 and is currently oxygen dependent. Patient continues have significant functional decline. Palliative care providing support for pain and symptom management, anticipatory guidance and coordination of care Recommendations/Counseling Done: 1. Pain of neoplastic origin. Patient currently with pain well controlled, but remains on his dexamethasone 4 mg. He has restarted his Zytiga, is she is she i s partnered with a steroid, did follow-up given patient's continued trouble with bleeding, bruising, dosing of dexamethasone though it did assist him with energy and appetite. At this point in time there is no lesion to target with radiation. Will be curious if his pain gets worse with titration down of dexamethasone. 2. CHF, acute on chronic. Patient did have an exacerbation, has been seen by cardiology with echo done. He was started on furosemide 20 mg, does have pending lab and instructions on this. Patient is currently appearing to be dehydrated, lost 10 pounds of fluid, ankles are quite thin and skin with poor skin turgor. He is taking fluids, but would benefit from watching blood pressures, patient has been instructed to hold furosemide if blood pressure less than 100/50. 3. Anemia. Patient did receive 1 unit packed red blood cells, and is pending most likely as second as his hemoglobin last week was 7.1. He does feel quite fatigued and breathless. Unclear etiology. 4. Metastatic prostate cancer with bone mets. Patient did get put back on the Zytiga, he is currently on dexamethasone, I have queried Dr. Morel whether dexamethasone needs to be transitioned over to prednisone. 5. Atrial flutter. Patient did receive echo, he is currently off his Eliquis secondary to severe bleeding problems and skin tears. We will continue to follow. 6. Generalized weakness. Patient continues with limited functional status, both related to weakness and breathlessness. 7. 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 Patient is doing pressure relief mass relief measures, they are watching it carefully but still continues to be painful. 8. Hypoxia. Patient with thoracentesis, is breathing better, oxygen at 3 L with 99. Patient is having nosebleeds, will decrease oxygen to 2 L, may increase if increase shortness of breath or activity. Also instructed on Afrin if nosebleeds do not stop after 10 to 15 minutes. This is a [facility] and not a scheduled intervention. He was also instructed on proper care with nasal spray, water- based jelly to keep his nasal passages moist 60 minutes with greater than 50% of this done in counseling regarding management of oxygen, symptoms, pain, follow-up on symptoms of dehydration, coordination of care with oncology team
== END 2021-06-26 12:31 | disposition home or self-care (01) ==
LOC: PC 12:30
PROVIDERS: ATTEND Nurse Practitioner Adult Health
DX: Z51.5 Encounter for palliative care (principal); G89.3 Neoplasm related pain (acute) (chronic); D64.9 Anemia, unspecified; R53.1 Weakness; R53.83 Other fatigue; R09.02 Hypoxemia; R04.0 Epistaxis; R42 Dizziness and giddiness; C79.51 Secondary malignant neoplasm of bone; C61 Malignant neoplasm of prostate; J90 Pleural effusion, not elsewhere classified; I50.9 Heart failure, unspecified; I48.92 Unspecified atrial flutter; L89.152 Pressure ulcer of sacral region, stage 2; S51.812D Laceration without foreign body of left forearm, subsequent encounter; Z79.899 Other long term (current) drug therapy; Z79.52 Long term (current) use of systemic steroids; Z99.81 Dependence on supplemental oxygen; Z66 Do not resuscitate
CPT/HCPCS: 99350

== ENCOUNTER 2021-07-10 12:00 | Outpatient (CLI) | payer MEDICARE ==
--- NOTE | 2021-07-10 20:19 | CONSULTATION NOTE ---
Palliative Care Follow Up - Referral Referring Provider: Dr. Sheeba Cuevas Time of Visit: Referral setting: Home Referral Reason: FTT/Met Prostate CA with bone mets/anemia/CHF/right pleural effusion - Information Sources Records reviewed: Previous records reviewed History/Review of Systems obtained from: Patient Exam limitations: No limitations - History of Present Illness Update Brief HPI Update: This is a 70-year-old gentleman with metastatic cancer of the prostate, with widespread mets to the bones and known soft tissue nodules in right upper lobe. He also has known right hilar adenopathy and recently worsening bilateral pleural effusions. He did receive a thoracentesis, recently diuresed for 10 pound weight loss for CHF, continues with worsening anemia has received 3 units of packed red blood cells over the last 3 weeks, continues with functional decline. He is quite pale, his breath sounds are quite diminished in the bases, right for concern for recurrent pleural effusion with no breath sounds about a third of the way up. He continues to have orthopnea. He denies any pain, is continuing on his Zytiga, currently on dexamethasone 4 mg.He is due to see oncology later this week, has seen cardiology with changes in his meds including discontinuation of his digoxin, and changing of his furosemide to every other day. Past Medical History: Osteoarthritis, hypertension, hypercholesteremia, peripheral neuropathy PTSD, major depressive disorder, PVD, CKD stage III, atrial fib currently off Eliquis, diabetes type 2, gout, hearing loss, obesity, prostate cancer 2016 with TURP, recurrent disease metastatic to the bone 2018. Social History - Living Situation Living arrangement: At home Living Situation: With spouse/s.o. Support System: Patients live with his jose Randa, they had relocated to [facility] to live near his son. His son has since moved to [place].. Their daughter and her live in [place] and provided intermittent support. Patient is retired and in his later years was an [employer]. They are fairly isolated with some support from neighbors, but in new community with COVID isolation, have not been able to make connections. Medications/Allergies - Medications Home Medications: Ambulatory Orders Medication Instructions Recorded Confirmed Multivit-Min/FA/Lycopen/Lutein 1 tab PO DAILY 11/12/19 07/11/21 [Centrum Silver Men Tablet] Duloxetine HCl 30 mg PO DAILY 01/18/20 07/11/21 buPROPion [Wellbutrin Sr] 150 mg PO BID 01/18/20 07/11/21 Loperamide [Imodium] 2 mg PO QID PRN capsule 01/25/20 07/11/21 Metoprolol Succinate [Toprol Xl] 50 mg PO DAILY 09/29/20 07/11/21 Rosuvastatin Calcium [Crestor] 5 mg PO QPM 09/29/20 07/11/21 lisinopriL [Lisinopril] 2.5 mg PO QPM 09/29/20 07/11/21 Cetirizine [ZyrTEC] 10 mg PO DAILY PRN 03/16/21 07/11/21 Fluticasone [Flonase] 1 spray NIKOLE DAILY 03/16/21 07/11/21 Alpha Lipoic Acid 50 mg PO DAILY 05/30/21 07/11/21 Cholecalciferol [Vitamin D3] 2,000 unit PO DAILY 05/30/21 07/11/21 HYDROcod/ACETAM 5/325 [[address] 5/325] 1 tab PO Q4H PRN 05/30/21 07/11/21 Spironolactone [Aldactone] 12.5 mg PO DAILY 05/30/21 07/11/21 dexAMETHasone [Decadron] 4 mg PO DAILYWM MDD consider taper 05/30/21 07/11/21 Docusate Sodium [Dulcolax Stool 100 mg PO DAILY #30 cap 05/31/21 07/11/21 Softener] Ferrous Bis-Glycinate Chelate 29 mg PO DAILY #30 cap 05/31/21 07/11/21 [Iron Glycinate] Abiraterone Acetate [Zytiga] 250 mg PO DAILY 06/26/21 07/11/21 Furosemide [Lasix] 20 mg PO .QOD 06/26/21 07/11/21 Vitamin B Complex/Folic Acid 1 tab PO DAILY 06/26/21 07/11/21 [B-Complex Tablet] - Allergies Allergies/Adverse Reactions: Allergies Allergy/AdvReac Type Severity Reaction Status Date / Time Penicillins Allergy Rash Verified 05/29/21 14:21 codeine AdvReac Unknown Verified 05/29/21 14:21 oxycodone HCl * AdvReac Dizziness Verified 05/29/21 14:21 [From OxyContin] Review of Systems - Constitutional Constitutional: reports: Fatigue (worsening very limiting), Weakness (worsening mostly in recliner; walking short distances with walker; has had functional decline), Weight loss (181.2 down from 190.8 after furosemide) - Eyes Eyes: reports: Vision loss, Corrective lenses - Ears, Nose & Throat Ears, Nose & Throat: reports: Hearing loss, Dry mouth. denies: Dental pain (right jaw pain resolved) - Cardiovascular Cardiovascular: reports: Lightheadedness (worsened over last 2-3 days), Exertional dyspnea, Decr. exercise tolerance. denies: Chest pain, Edema - Respiratory Respiratory: reports: SOB with exertion, Other (on three liters;). denies: SOB at rest - Gastrointestinal Gastrointestinal: reports: Abdominal distention (mild), Bloating, Early satiety (some improvement last few days). denies: Nausea, Reflux/heartburn - Genitourinary Genitourinary: reports: Frequency - Musculoskeletal Musculoskeletal: reports: Muscle aches, Stiffness, Muscle weakness, Assistive devices (using walker; looking at scooter) - Integumentary Integumentary: reports: Dryness, Other (brusing on forearms/extensive; across abdomen and shins; now with skin tear 06/20 had EMS call because of bleeding; healing slowly) - Neurological Neurological: reports: General weakness, Numbness (persistent/mild tingling worsening impact on balance), Abnormal gait - Psychiatric Psychiatric: reports: Depression, Anxiety (with worsening condition). denies: Suicidal - Endocrine Endocrine: reports: Diabetes type 2 - Hematologic/Lymphatic Hematologic/Lymph: reports: Anemia (received 3 units total over the last 3 weeks), Bruising, Bleeding tendencies (having intermittent bloody noses; short term). denies: Recurrent infections - All Other Systems All Other Systems: reports: Reviewed and negative Physical Exam - Vital Signs Temperature: 97.2 C Pulse Rate: 90 Respiratory Rate: 18 O2 Saturation: 93 (on 3 liters at rest; off oxygen 90%) Blood Pressure: 102/42 - Physical Exam General Appearance: positive: No acute distress, Alert, Anxious Eyes Bilateral: positive: Normal inspection, No scleral icterus ENT: positive: No signs of dehydration (patient appears dehyrated from diuretic) Neck: positive: No JVD, Trachea midline Cardiovascular: positive: Regular rate & rhythm Respiratory: positive: Diminished throughout, Diminished in bases, Other (decreased RLL up to 1/3). negative: No respiratory distress (respiratory effort with activty), Wheezes, Rhonchi Abdomen: positive: Soft, Nml bowel sounds, Obese Skin: positive: Pallor, Dryness, Bruising (multiple bruises UE), Wound (left forearm healing slowly) Extremities: positive: No pedal edema Neurologic/Psychiatric: positive: Oriented x3, Mood/affect nml, Weakness, Flat affect Palliative Care - POLST Patient has POLST: Yes POLST Status: DNR, Selective Treatment Pain: No pain Tiredness/Fatigue: Severe (7-10) Drowsiness/Sedation: None Nausea: None Anorexia: Moderate (4-6) Dyspnea: Moderate (4-6) Depression: Mild (1-3) Anxiety: Mild (1-3) Feelings of wellbeing/Perceived Quality of Life: Fair, Worsening Sleep: Variable sleep pattern Constipation: Yes, Intermittent constipation Performance Status: Patient is continuing decline in functional status, some of this is lower extremity weakness and some is with breathlessness. He is able to ambulate short distances, is disappointed that a transport chair did not help as cannot push it over the lip or threshold of doorways. They are now looking at getting a scooter. He has not felt strong enough to bathe at this point in time. Doing sponge baths. - Palliative Care Discussion: Both patient and recognize his decline, though his goals are still supportive care and treatment related. Does not feel like he is ready to transition to hospice or supportive care. He is hoping the scooter will provide him some increased independence, has been quite disappointed he is continue to feel poorly.Patient does have POLST with DN AR and selective treatments. Continue to hope for the best, and difficulty consider but aware he is with limited options, though his PSA has gone down recently giving them some hope is maintaining. Impression and Recommendations - Palliative Care Impression: This is a 70-year-old gentleman with metastatic cancer of the prostate widespread to the bones, right upper lobe, right hilar adenopathy. Concern today regarding patient's respiratory status with worsening dyspnea and high risk for recurrent pleural effusion, is seen oncology later this week. Patient is currently oxygen dependent, encouraged to continue. Patient is having functional decline, discussion regarding recommendations around scooter. Palliative care providing support for symptom management, anticipatory guidance, and coordination of care. Recommendations/Counseling Done: 1. Pain of neoplastic origin. Patient currently without any pain, but is still on his dexamethasone 4 mg. He has restarted his Zytiga, Oncology want to stay on current dose. It has helped with appetite and energy, will continue to monitor as pain may recur. 2. CHF, acute on chronic. Patient is being followed by cardiology, they have seen in with discontinuation of digoxin and changing of her [place] to every other day. He remains quite dry. But blood pressure holding. 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 3. Anemia. Patient now has received 3 units of packed red blood cells over the last month, does get a little bit of relief but nothing significant. Concern for persistent anemia, patient no longer on anticoagulant, denies obvious s/s GI bleeding. We will continue to monitor, may be related to his side effect of Zytiga. 4. Metastatic prostate cancer with bone and pulmonary mets. Patient is on Zytiga, reports always had a decrease in his PSA, are continue to look at other treatments. At this point in time he continues on dexamethasone, suspect will transition over to prednisone eventually. 5. Generalized weakness. This is multifactorial, including worsening dyspnea, anemia, weight loss and muscle mass/wasting, unfortunately transport wheelchair was not able to help with in transport. Patient is looking at scooter. Counseling provided regarding recommended trial first, had been think about ordering offline. Recommend to go to scooter store, trial for fitting as well as if comfortable for patient. Verbalizes understanding. 6. 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 Patient is doing pressure relief measures, using barrier cream, continues to be painful. 7. Hypoxia. Patient with recent thoracentesis was breathing better with improved oxygen readings. Patient with decreased breath sounds on the right again, concern either anemia or recurrent pleural effusion adding to his decreased numbers today. Encouraged to follow-up with oncology this week, would benefit from chest x-ray to continue to monitor. If need assistance with follow-up, can make arrangements at walk-in clinic. 8. Advanced care planning. Patient continues to hope for the best, is aware he is running out of options. Patient does demonstrate weight loss, decline in functional status, and higher symptom burden. Palliative care continue to provide support and anticipatory guidance. 45 minutes with greater than 50% of this done in counseling regarding symptom management, anticipatory guidance, coordination of care with oncology team, and continued building of rapport.
== END 2021-07-10 12:01 | disposition home or self-care (01) ==
LOC: PC 12:00
PROVIDERS: ATTEND Nurse Practitioner Adult Health
DX: Z51.5 Encounter for palliative care (principal); D63.0 Anemia in neoplastic disease; R53.83 Other fatigue; R63.4 Abnormal weight loss; R06.09 Other forms of dyspnea; R09.02 Hypoxemia; I50.9 Heart failure, unspecified; L89.152 Pressure ulcer of sacral region, stage 2; C78.01 Secondary malignant neoplasm of right lung; C79.51 Secondary malignant neoplasm of bone; C61 Malignant neoplasm of prostate; Z74.1 Need for assistance with personal care; Z99.81 Dependence on supplemental oxygen; Z74.09 Other reduced mobility; Z79.899 Other long term (current) drug therapy; Z87.09 Personal history of other diseases of the respiratory system; Z79.52 Long term (current) use of systemic steroids; Z66 Do not resuscitate
CPT/HCPCS: 99349

== ENCOUNTER 2021-07-14 12:17 | Outpatient (CLI) | payer MEDICARE, OTHER ==
[2021-07-14 18:48] LABS: CALCIUM 9.2 mg/dL (8.5-10.3); CREATININE 1.7 mg/dL (0.6-1.2); POTASSIUM 4.6 mmol/L (3.5-5.0)
== END 2021-07-14 12:18 | disposition home or self-care (01) ==
LOC: LAB.N 12:17
PROVIDERS: ATTEND Internal Medicine Cardiovascular Disease
DX: I10 Essential (primary) hypertension (principal)
CPT/HCPCS: 36415; 80048

== ENCOUNTER 2021-07-27 20:27 | Outpatient (CLI) | payer MEDICARE | END 2021-07-27 20:28 | disposition short-term general hospital (02) | LOC: EMS 20:27 | DX: R06.02 Shortness of breath (principal); R41.0 Disorientation, unspecified; R05.9 Cough, unspecified; Z99.81 Dependence on supplemental oxygen | CPT/HCPCS: A0425; A0427 ==

== ENCOUNTER 2021-09-11 13:10 | Outpatient (CLI) | payer MEDICARE ==
--- NOTE | 2021-09-11 19:44 | CONSULTATION NOTE ---
Palliative Care Follow Up - Referral Referring Provider: Dr. Sheeba Cuevas Time of Visit: [id number] Referral setting: Home Referral Reason: Met Prostate CA/FTT/CHF - Information Sources Records reviewed: Previous records reviewed History/Review of Systems obtained from: Patient, Family ( Randa) Exam limitations: No limitations - History of Present Illness Update Brief HPI Update: This is a 70-year-old gentleman with metastatic cancer of the prostate with widespread mets to the bones, and known soft tissue nodules in right upper lobe. He also has known right hilar adenopathy, and most recently was hospitalized for acute and chronic respiratory failure on 07/27/2021. Patient had developed bilateral pleural effusions, severe pancytopenia related to his chemo, community-acquired pneumonia, chronic systolic CHF exacerbation, and presents with severe deconditioning. He was hospitalized originally at [facility] but transferred to [facility] and was originally in ICU 07/28/2021 and discharged to a swing bed on 08/18/2021. He did end up needing to be transition to swing bed/rehab, where he received physical therapy and OT, though he had made some progress and was able to ambulate short distances, he is still severely fatigued. He was discharged 09/08/21 home, and feels he has continued to deteriorate. Unfortunately they did not receive the morphine, had ordered a concentration not carried by local pharmacies. He had met with the palliative care team on several occasions, and was very resistant to transition to hospice, on discharge on 09/08 [address] referred to [facility] physical therapy. On examination though, patient has multiple skin tears and wounds that will need nursing support. He did have a echo limited on 07/28 that showed an LVEF of 75%, acute on chronic diastolic congestive heart failure, he also had his last bilateral thoracentesis on 08/01/2021. He had been managed on furosemide 40 mg, unclear on discharge why they decreased him to 20 mg. He does present with minimal breath sounds right lower lobe about [facility] up, and left lower lobe about quarter way up. He is oxygenating though at 99%. He does feel quite dyspneic with any kind of activity. He perceives though this is related to not having the morphine over the weekend. He had been managed with about 2.6 mg 4 times a day with good control. Patient had also been taken off his Eliquis patient has severe atrial fib, but felt this was adding to his pancytopenia and possible bleeding. He required transfusions, on 08/01, 08/08, and 08/10. He had opted against endoscopic evaluation. Patient is quite pale, does not appear had any ongoing labs during SNF stay. He had been continued on his Zytiga as well as his dexamethasone. On examination, patient is quite tearful through home visit, is very perseverative on wanting to just get stronger. He also feels if he had the morphine he would do better, multiple times during the conversation brought him back to the context of his metastatic prostate cancer in the background, as well as his ongoing decline. Patient does not want to go back to the hospital, unless he were able to come back home, my fear is though he would most likely not survive another hospitalization.Patient skin is quite frail, has severe bruising over his extremities, over his left upper chest, patient had encephalopathy and confusion, and concern for most likely pulled his Port-A-Cath and rendered it unusable. Please see palliative care discussion, after much discussion goal is to start with [facility], if patient were to continue decline, will accept hospice services. Past Medical History: Osteoarthritis, hypertension, hypercholesteremia, peripheral neuropathy, PTSD, major depressive disorder, PVD, CKD stage III, atrial fib currently off Eliquis, diabetes type 2, gout, hearing loss, obesity, prostate cancer 2016 with TURP, recurrent disease metastatic to the bone 2018 Social History - Living Situation Living arrangement: At home Living Situation: With spouse/s.o. Support System: Patient lives with his jose Randa, they relocated to [facility] to live near his son. Unfortunately since then his son is moved to [place] and . They do have a daughter and her live here in [place] and have provided some support, it is good to be difficult for Randa who has her own health issues to provide physical care, they have hired some assistance for bathing. Patient is retired in his later years was an [employer], has found much support through contact with his local [place] who is also undergoing cancer treatment. They are fairly isolated, have some good support from neighbors but are new to the community with Covid isolation have not been able to make many connections. has allowed patient to set his goals, but has been quite realistic about his impending decline Medications/Allergies - Medications Home Medications: Ambulatory Orders Medication Instructions Recorded Confirmed Multivit-Min/FA/Lycopen/Lutein 1 tab PO DAILY 11/12/19 07/11/21 [Centrum Silver Men Tablet] Duloxetine HCl 30 mg PO DAILY 01/18/20 09/12/21 buPROPion [Wellbutrin Sr] 150 mg PO BID 01/18/20 09/12/21 Loperamide [Imodium] 2 mg PO QID PRN capsule 01/25/20 09/12/21 Metoprolol Succinate [Toprol Xl] 12.5 mg PO DAILY 09/29/20 09/12/21 Rosuvastatin Calcium [Crestor] 5 mg PO QPM 09/29/20 09/12/21 dexAMETHasone [Decadron] 3 mg PO DAILYWM 05/30/21 09/12/21 Ferrous Bis-Glycinate Chelate 29 mg PO DAILY #30 cap 05/31/21 09/12/21 [Iron Glycinate] Abiraterone Acetate [Zytiga] 250 mg PO DAILY MDD HOLD 06/26/21 09/12/21 Furosemide [Lasix] 40 mg PO .X2 DAYS, THEN 20 MDD 40 06/26/21 09/12/21 mg prn swelling Folic Acid 1 mg PO DAILY 09/12/21 09/12/21 Morphine Sulfate [Morphine Sulfate 1.5 - 3 ml PO .Q2 PRN 09/12/21 09/12/21 2mg/ml soln] Pantoprazole [Protonix] 40 mg PO BID 09/12/21 09/12/21 polyethylene glycoL 3350 [Miralax] 17 gm PO DAILY PRN 09/12/21 09/12/21 - Allergies Allergies/Adverse Reactions: Allergies Allergy/AdvReac Type Severity Reaction Status Date / Time Penicillins Allergy Rash Verified 05/29/21 14:21 codeine AdvReac Unknown Verified 05/29/21 14:21 oxycodone HCl * AdvReac Dizziness Verified 05/29/21 14:21 [From OxyContin] Review of Systems - Constitutional Constitutional: reports: Fatigue (worsening very limiting), Weakness (worsening mostly in recliner; walking short distances with walker; has had functional decline very deconditioned), Weight loss (20 pounds reports 170) - Eyes Eyes: reports: Vision loss, Corrective lenses - Ears, Nose & Throat Ears, Nose & Throat: reports: Hearing loss, Dry mouth. denies: Dental pain (right jaw pain resolved) - Cardiovascular Cardiovascular: reports: Edema (had resolved; 1+ today), Lightheadedness, Exertional dyspnea, Decr. exercise tolerance. denies: Chest pain - Respiratory Respiratory: reports: SOB with exertion, Other (on three liters;). denies: SOB at rest - Gastrointestinal Gastrointestinal: reports: Abdominal distention (mild), Bloating, Early satiety (some improvement last few days). denies: Nausea, Reflux/heartburn - Genitourinary Genitourinary: reports: Frequency - Musculoskeletal Musculoskeletal: reports: Muscle aches, Stiffness, Muscle weakness, Assistive devices (using walker; using lift chair to stand) - Integumentary Integumentary: reports: Dryness, Other (brusing on forearms/extensive; left upper chest; legs/shins) - Neurological Neurological: reports: General weakness, Numbness (persistent/mild tingling worsening impact on balance), Abnormal gait - Psychiatric Psychiatric: reports: Depression (tearful through visit), Anxiety (with worsening condition). denies: Suicidal - Endocrine Endocrine: reports: Diabetes type 2 - Hematologic/Lymphatic Hematologic/Lymph: reports: Anemia (received 3 units total during hospitalization), Bruising. denies: Recurrent infections - All Other Systems All Other Systems: reports: Reviewed and negative Physical Exam - Vital Signs Temperature: 97.2 C Pulse Rate: 77 Respiratory Rate: 18 (22 with movement/conversation) O2 Saturation: 99 (3 liters at rest) Blood Pressure: 104/72 - Physical Exam General Appearance: positive: Alert, Mild distress (over decline), Anxious Eyes Bilateral: positive: Normal inspection, No scleral icterus Neck: positive: No JVD, Trachea midline Cardiovascular: positive: Regular rate & rhythm Respiratory: positive: Diminished throughout, Diminished in bases (see HPI). negative: No respiratory distress (respiratory effort with activty), Wheezes, Rhonchi Abdomen: positive: Soft, Nml bowel sounds, Obese Skin: positive: Pallor, Dryness, Bruising (multiple bruises), Wound (multiple skin tears/wounds; left forearm/left knee), Pressure wound (stage II coccyx) Extremities: positive: Pedal edema (1+up to mid calf; reports new since home), Other (very weak; difficulty to stand; needing lift chair; reports effort to bathroom significant; sponge bathing) Neurologic/Psychiatric: positive: Oriented x3, Weakness, Depressed mood/affect, Flat affect Palliative Care - POLST Patient has POLST: Yes POLST Status: DNR, Selective Treatment Feelings of wellbeing/Perceived Quality of Life: Poor, Worsening Sleep: Variable sleep pattern Constipation: Yes, Managed, Comment (going 2-3 times a day loose since home) Performance Status: Patient has had a prolonged hospitalization, and continues to decline functionally. He had improved some with PT/OT but does admit had poor activity tolerance. ambulate short distances at home to be able to allow his to be able to provide support.Unfortunately patient continues to be quite weak, most likely related to his comorbidities and has worsened even over weekend. - Palliative Care Discussion: Patient had had multiple conversations with palliative care, recommendations have been made by team to transition home with hospice. Patient unable to really explain his resistance, other than was not ready to "give up". We did discuss in the context of his disease processes, both with his worsening heart failure, underlying atrial fib, and metastatic prostate cancer expectation would be he would continue to decline. Patient most likely has weeks, he is very tearful through visit.His goals have been to "get stronger", this would not be the focus of hospice which has been part of his reluctance. He is not wanting to return to the hospital if possible, we discussed most likely given the severity of his illness, would be counter to his goals of having a at home.After much discussion, patient would like to get his morphine to see if this helps with his breathlessness and how he is feeling, trial PT, will add RN, and see how patient manages, did give me permission to go ahead and contact hospice for pending referral next week if patient continues to decline. Impression and Recommendations - Palliative Care Impression: This is a 70-year-old gentleman with metastatic prostate cancer widespread. On patient with prolonged hospitalization, for acute on chronic respiratory failure, CAP, CHF exacerbation, pancytopenia and suspected GI bleeding. Patient continues to be quite weak, presents with failure to thrive, with weight loss, continued functional decline, and high symptom burden. Palliative care providing support for symptom management anticipatory guidance and coordination of care, had made recommendation to transition to hospice, will do time trial with home health. Recommendations/Counseling Done: 1. Acute on chronic respiratory failure. Patient is oxygen dependent, having increased shortness of breath. Unfortunately did not get morphine over the weekend, had felt this was helpful. Is to fruit or nut picker up this morning. Unfortunately concentration is 10 mg/5 mils, discussed with will transition to 20 mg/mill when needs new prescription as it is more easily provided. Reviewed can use up to 3 to 6 mg of morphine every 2 hours for respiratory distress or pain. Patient admitted taking every 4 hours at facility with good control.Patient presents with symptoms of recurrent bilateral pleural effusions, at this point in time wanting to avoid hospitalization, will try and manage with paced activity and morphine, last tapped 08/01. 2. Acute on chronic heart failure. Patient had been on furosemide 40 mg it appears in the facility, discharged on 20 mg. Both and patient report increased lower extremity edema had been resolved. Presents with 1+ up to mid calf, given respiratory status as well, will go ahead and increase to 40 mg x 2 days. Patient unable to weigh at this point. Reports his baseline weight is about 172 which is down 10-15 pounds prior to his admit. 3. Generalized weakness. This is multifactorial, including weight loss and muscle mass/wasting, prolonged hospitalization, worsening dyspnea, had improved some to be able to be independent in transfers and toileting. They do have a commode, recommended minimize long distances secondary if patient has fall will unable to assist. Patient does have lift chair, will monitor, may need hospital bed. 4. Metastatic prostate cancer with bone and pulmonary mets. Patient has remained on Zytiga, concerned regarding patient's pancytopenia prior to transition to rehab. Will follow up with oncologist, suspect should be discontinued given goals of care. 5. 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 Patient is doing pressure relief measures, using barrier cream, continues to be quite painful. Will initiate home health RN both for monitoring and care, as well as care for multiple skin tears, left arm, left knee, and right forearm. 6. Advanced care planning. Patient continues to hope for the best, wanting to push himself to become more functional, we did discuss in the context of his disease trajectory and worsening condition my recommendation to transition to hospice for better support. He would like to try the morphine, home PT, supportive RN to see if can manage. Patient does feel at peace though with his impending , has been speaking to his [place] regarding this. The patient is quite tearful through all of visit, will let me know if wants to transition to hospice sooner. 70 minutes with greater than 50% of this done in counseling regarding goals of care, and symptom management, coordination of care with [facility] will send order for RN services, reach out to [facility] hospice for pending admit next week, can cancel if patient improves, follow up with oncologist, and anticipatory guidance.
== END 2021-09-11 13:11 | disposition home or self-care (01) ==
LOC: PC 13:10
PROVIDERS: ATTEND Nurse Practitioner Adult Health
DX: Z51.5 Encounter for palliative care (principal); J96.20 Acute and chronic respiratory failure, unspecified whether with hypoxia or hypercapnia; Z99.81 Dependence on supplemental oxygen; I50.9 Heart failure, unspecified; R53.1 Weakness; C61 Malignant neoplasm of prostate; C78.00 Secondary malignant neoplasm of unspecified lung; L89.152 Pressure ulcer of sacral region, stage 2; Z66 Do not resuscitate
CPT/HCPCS: 99350

== ENCOUNTER 2021-09-18 11:40 | Outpatient (CLI) | payer MEDICARE ==
--- NOTE | 2021-09-18 16:58 | CONSULTATION NOTE ---
Palliative Care Follow Up - Referral Referring Provider: Dr. Sheeba Cuevas Time of Visit: [id number] Referral setting: Home Referral Reason: Met Prostate CA/FTT/CHF/Gangrene left toe - Information Sources Records reviewed: Previous records reviewed History/Review of Systems obtained from: Patient, Family ( Randa, daughter Merlyn) Exam limitations: Clinical condition (mild STM deficits) - History of Present Illness Update Brief HPI Update: This is a 70-year-old gentleman with metastatic prostate cancer with widespread mets to the bones, known soft tissue nodules in the right upper lobe, right hilar adenopathy, and worsening bone marrow failure suspected related to both disease and his Zytiga.Patient's original diagnosis was in 2016 with a TURP, 2018 diagnosed with metastatic disease to the bone. Patient's complexity includes also chronic systolic CHF, severe atrial fib currently off Eliquis, as he was having most likely bleeding and thought to add to his pancytopenia. Patient had most recently been hospitalized for acute on chronic respiratory failure on 07/27/2021 with worsening severe bilateral pleural effusions, severe pancytopenia and community-acquired pneumonia which included an ICU stay, swing bed in [place], as well as extended stay at a SNF and was discharged 09/08/2021. He had been seen by palliative care multiple times, but is very resistant to transition to hospice as he had "recovered" multiple times before with just focus on "getting stronger". He was referred then to [facility], but has continued to deteriorate deteriorate. Patient's has been very supportive of patient, though is quite clear patient is deteriorating and more appropriate for hospice, agreement for goals have been to trial being home for a week or 2, but today patient continues to deteriorate even from last week. Suspect and confirmed most likely worsening bilateral pleural effusions, on objective evaluation, does have breath sounds diminished right lower lobe about long-term up and left lower lobe about quarter way up. He is though oxygenating, though today it is difficult to get a reading. He does have poor circulation both in his hands and feet, continued weight loss, muscle wasting, and is quite pale. His functional status despite his goal to get stronger, he is mostly recliner bound, ambulating short distances more difficult with lower extremity weakness and dyspnea, and patient has had poor intake and presents with failure to thrive. On examination patient had been seen by [facility] and foot ulcers reported, patient has poor circulation in his lower extremities, and presents with if large dry gangrene ulcer on his left tip of his toe. As well as a smaller one on the tip of his right toe. These are without redness drainage or pain.Patient has multiple skin tears, patient is long-term been on prednisone and most recently dexamethasone secondary to his treatments, continues on Dex 3 mg so this can be titrated but he has presented with adrenal insufficiency given the long-term use. Patient also has known severe cardiac issues, including his heart failure, his last bilateral thoracentesis was on 08/01/2021. His most significant symptom related to this has been his dyspnea, controlled on small doses of morphine, they do have a weird solution of 10mg to 5 mL, and is taking about 2.5 to 3 mg 3-4 times a day. Unfortunately he is having some myoclonic jerking related to this, patient most likely also has poor and worsening kidney failure. He also has a burst blood vessel in his right thigh, this occurred with straining. Patient has had this occur before when he was on Eliquis, the reports it is continuing to improve. Please see palliative care discussion, but after family meeting with patient, daughter, and , agreement in the context of patient's goal to at home, will transition to hospice. Past Medical History: Osteoarthritis, hypertension, hypercholesteremia, peripheral neuropathy, PTSD, major depressive disorder, PVD, CKD stage III, severe atrial fib currently off Eliquis, diabetes type 2, gout, hearing loss worsening, obesity, prostate cancer 2016 with TURP, recurrent disease to the bone 2018 Social History - Living Situation Living arrangement: At home Living Situation: With spouse/s.o. Support System: Patient lives with his jose Randa, they relocated to [facility] to live near their son. Unfortunately since then his son who is an MA has moved to [place] and . They do have a daughter Cielo and she and her live here in [place], she is trying to provide some extra support. Randa has tried to hire some help, unfortunately with the lack of caregivers out there has not been able to get adequate staff. She does have someone coming this Saturday. Patient is retired and his later years was [employer], has found much support through contact with his low-dose " who is also undergoing cancer treatment. They are fairly isolated but have good support from neighbors unfortunately were new to the community with COVID isolation have not been able to make many connections. herself has been having health issues, she is a cancer survivor too Medications/Allergies - Medications Home Medications: Ambulatory Orders Medication Instructions Recorded Confirmed Multivit-Min/FA/Lycopen/Lutein 1 tab PO DAILY MDD can stop 11/12/19 09/19/21 [Centrum Silver Men Tablet] Duloxetine HCl 30 mg PO DAILY 01/18/20 09/19/21 buPROPion [Wellbutrin Sr] 150 mg PO BID 01/18/20 09/19/21 Loperamide [Imodium] 2 mg PO QID PRN capsule 01/25/20 09/19/21 Metoprolol Succinate [Toprol Xl] 12.5 mg PO DAILY 09/29/20 09/19/21 Rosuvastatin Calcium [Crestor] 5 mg PO QPM MDD can stop 09/29/20 09/19/21 dexAMETHasone [Decadron] 3 mg PO DAILYWM 05/30/21 09/19/21 Ferrous Bis-Glycinate Chelate 29 mg PO DAILY #30 cap MDD can stop 05/31/21 09/19/21 [Iron Glycinate] Furosemide [Lasix] 40 mg PO 20 MDD 40 mg prn swelling 06/26/21 09/19/21 Folic Acid 1 mg PO DAILY MDD can stop 09/12/21 09/19/21 Morphine Sulfate [Morphine Sulfate 1.5 - 3 ml PO .Q2 PRN 09/12/21 09/19/21 2mg/ml soln] Pantoprazole [Protonix] 40 mg PO BID 09/12/21 09/19/21 polyethylene glycoL 3350 [Miralax] 17 gm PO DAILY PRN 09/12/21 09/19/21 - Allergies Allergies/Adverse Reactions: Allergies Allergy/AdvReac Type Severity Reaction Status Date / Time Penicillins Allergy Rash Verified 05/29/21 14:21 codeine AdvReac Unknown Verified 05/29/21 14:21 oxycodone HCl * AdvReac Dizziness Verified 05/29/21 14:21 [From OxyContin] Review of Systems - Constitutional Constitutional: reports: Fatigue (worsening very limiting; sleeping most of the time), Weakness (worsening mostly in recliner; walking short distances with walker; has had worsening functional decline very deconditioned), Weight loss (20 pounds reports 170) - Eyes Eyes: reports: Vision loss, Corrective lenses - Ears, Nose & Throat Ears, Nose & Throat: reports: Hearing loss, Dry mouth. denies: Mouth lesions, Dental pain (right jaw pain resolved) - Cardiovascular Cardiovascular: reports: Lightheadedness, Exertional dyspnea, Decr. exercise tolerance, Orthopnea. denies: Chest pain, Edema - Respiratory Respiratory: reports: SOB with exertion, Other (on 2-3 liters). denies: SOB at rest - Gastrointestinal Gastrointestinal: reports: Abdominal distention (mild), Bloating, Poor appetite, Early satiety (some improvement last few days). denies: Nausea, Reflux/heartburn - Genitourinary Genitourinary: reports: Frequency - Musculoskeletal Musculoskeletal: reports: Muscle aches, Stiffness, Muscle weakness, Assistive devices (using walker; using lift chair to stand) - Integumentary Integumentary: reports: Dryness, Other (brusing on forearms/extensive; left upper chest; legs/shins; foot ulcers) - Neurological Neurological: reports: General weakness, Numbness (persistent/mild tingling worsening impact on balance), Abnormal gait - Psychiatric Psychiatric: reports: Depression (tearful through visit; longstanding depression), Anxiety (with worsening condition). denies: Suicidal - Endocrine Endocrine: reports: Diabetes type 2 - Hematologic/Lymphatic Hematologic/Lymph: reports: Anemia (received 3 units total during hospitalization; pale), Bruising, Petechiae. denies: Recurrent infections - All Other Systems All Other Systems: reports: Reviewed and negative Physical Exam - Vital Signs Temperature: 96.6 C Pulse Rate: 80 Respiratory Rate: 18 O2 Saturation: 94 (difficult to get reading) Blood Pressure: 98/48 - Physical Exam General Appearance: positive: Alert, Mild distress (over decline), Other (myoclonic jerking in UE; intermittent) Eyes Bilateral: positive: Normal inspection, No scleral icterus ENT: positive: Dry mucous membranes. negative: Oral lesions Neck: positive: No JVD, Trachea midline Cardiovascular: positive: Regular rate & rhythm Respiratory: positive: Diminished throughout, Diminished in bases (see HPI). negative: No respiratory distress (respiratory effort with activty), Wheezes, Rhonchi Abdomen: positive: Soft, Nml bowel sounds, Obese Skin: positive: Pallor, Dryness, Bruising (multiple bruises), Wound (multiple skin tears/wounds; left forearm/left knee open area 1.5 x 2 cm shallow; left toe with gangrene size of almond; right ganrene at tip), Pressure wound (stage II coccyx) Extremities: positive: No pedal edema, Other (very weak; difficulty to stand; needing lift chair; reports effort to bathroom significant; sponge bathing) Neurologic/Psychiatric: positive: Oriented x3, Weakness, Depressed mood/affect, Flat affect, Other (difficulty with talking with breathlessness) Palliative Care - POLST Patient has POLST: Yes POLST Status: DNR, Selective Treatment Pain: No pain Tiredness/Fatigue: Severe (7-10) Drowsiness/Sedation: Moderate (4-6) Nausea: None Anorexia: Moderate (4-6), Weight loss Dyspnea: Severe (7-10), Comment (using MS 3-4 x day) Depression: Moderate (4-6) Anxiety: Moderate (4-6) Feelings of wellbeing/Perceived Quality of Life: Poor, Worsening Sleep: Variable sleep pattern Constipation: No Performance Status: Patient has declining functional status, more difficulty tolerating activity particularly ambulating short distances. Did discuss in the context of quality of life and caregiving as patient is at high risk for falls, with transition to hospice would initiate hospital bed in living room. Family in agreement.They do have a bedside commode. - Palliative Care Discussion: Patient initially again was resistant to having conversation about transitioning. He did discuss his long-term PTSD and long-term depression with his usual coping is to compartmentalize. He does recognize his decline, revisited expected decline in the context of his metastatic disease and sequela with his pleural effusions and pancytopenia. Patient does not want to in the hospital, it was quite difficult to have a prolonged hospitalization, suspect if we send him in even for lab tests this will be the outcome. Family is supportive of him staying at home, we discussed in the context of this it would be very important to have appropriate support. Patient is not a candidate for improvement or rehab, this is difficult for him to perceive given how he has coped in the past. Counseling provided regarding "living" as part of hospice until you , instead of focus on just dying. Patient was able to embrace this, he has taken care of as part of his duties as [employer] people who have been on hospice, but has emotionally not been able to give in to his disease. He is much more willing, did discuss his prognosis and weeks not months, and he acknowledged his Randa and family are going to need more support. Again counseled repeat regarding the hospice benefit.Suspect patient is having more difficulty with his short-term memory issues, and processing, patient is also having worsening hearing. Requested teach back and check-in's needed frequently to make sure understands information. Impression and Recommendations - Palliative Care Impression: This is a 70-year-old gentleman with metastatic prostate cancer, widespread. Patient had prolonged hospitalization for acute on chronic respiratory failure CAP, CHF exacerbation, pancytopenia and suspected GI bleeding. Patient on initial transition home wanted to trial focus on rehab, will discharge from [facility] as patient has continued to have functional and cognitive decline. Patient presents with failure to thrive, weight loss, high symptom burden, worsening pleural effusions and most likely worsening pancytopenia. Palliative care providing support and anticipatory guidance, coordination of care, patient will transition to hospice. Recommendations/Counseling Done: 1. Acute on chronic respiratory failure. This is most likely multifactorial, patient with worsening pleural effusions, worsening dyspnea, and suspect worsening anemia. Patient is managed with oxygen, small doses of morphine between 2 and 3 mg up to 4 times a day, unfortunately patient is having some myoclonus and reaction to this. Patient has known CKD stage III, and suspect worsening organ failure. Unfortunately patient has tolerated very poorly opioids overall, will treat symptoms if worsens, at this point jerking is tolerable explained etiology. Patient feels currently managed on the small doses, may benefit from long-acting morphine. 2. Acute on chronic heart failure. Patient lower extremity edema has resolved from last visit, is continued on 20 mg. Patient is unable to weigh at this point, we will continue to monitor. Patient remains hypotensive at 98/48, but has needed small doses of diuretic to manage his heart failure overall through the course of the last couple years. 3. Gangrene left toe. Follow-up with [facility], instructed to keep both left and right toes dry, no dressing or debriding. Patient without any signs or symptoms of infection today, is not not painful. We will continue to monitor. 4. Stage II decub on coccyx, currently using barrier cream. Will benefit from hospital bed to be able to enlist more pressure relief. Patient does have pressure-relief cushion and trying to reposition, though does complain of pain at tailbone. 5.Skin tear left knee. Patient with shallow healing skin tear left knee 1.5 x 2 cm. Cleanse with normal saline, and replaced with Mepilex. 6. Metastatic prostate cancer with bone and pulmonary mets. Patient is currently off Zytiga, will continue with dexamethasone secondary to long-term adrenal suppression, though may be able to decrease to 2 mg. Reordered at 3 mg dosing. 7. Medication adherence. Reviewed medication list, with recommendation to discontinue supplements, lovastatin, patient is experiencing pill burden. We discussed deprescribing, would continue with heart failure medications for comfort, the patient does have known severe atrial fib off eliquis since hospitalization. 8. Advance care planning. Patient had continue to hope for the best, and wanted to do a time trial of home health. Patient has continued to deteriorate over the week, after family meeting, discussion was in the context of goals to remain home, no rehospitalization, secondary fear of dying in the hospital. Family and support of keeping at home, did discuss with daughter Cielo possible exploration of FMLA, as they have not been able to hire paid caregiving yet. Patient's prognosis is mostly in weeks, though this is difficult for him to comprehend. Counseling provided regarding anticipatory guidance and expected decline, coordination of care with [facility], they will discharge tomorrow, as well as [facility] hospice will admit end of week. 60 minutes with greater than 50% of this done in counseling regarding goals of care, symptom management, deprescribing, coordination of care with [facility] and [facility] hospice, staffed with hospice medical staff services coordinator.
== END 2021-09-18 11:41 | disposition home or self-care (01) ==
LOC: PC 11:40
PROVIDERS: ATTEND Nurse Practitioner Adult Health
DX: Z51.5 Encounter for palliative care (principal); C61 Malignant neoplasm of prostate; C79.51 Secondary malignant neoplasm of bone; I48.91 Unspecified atrial fibrillation; J90 Pleural effusion, not elsewhere classified; Z66 Do not resuscitate; Z79.899 Other long term (current) drug therapy; J96.20 Acute and chronic respiratory failure, unspecified whether with hypoxia or hypercapnia; I96 Gangrene, not elsewhere classified; I50.89 Other heart failure; D63.0 Anemia in neoplastic disease; L89.152 Pressure ulcer of sacral region, stage 2; R41.3 Other amnesia; R62.7 Adult failure to thrive; C78.01 Secondary malignant neoplasm of right lung; R63.4 Abnormal weight loss; Z79.52 Long term (current) use of systemic steroids; Z79.891 Long term (current) use of opiate analgesic; R53.83 Other fatigue; R53.1 Weakness; I13.0 Hypertensive heart and chronic kidney disease with heart failure and stage 1 through stage 4 chronic kidney disease, or unspecified chronic kidney disease; I50.22 Chronic systolic (congestive) heart failure; E11.22 Type 2 diabetes mellitus with diabetic chronic kidney disease; N18.30 Chronic kidney disease, stage 3 unspecified
CPT/HCPCS: 99350

== ENCOUNTER 2021-09-21 02:53 | Outpatient (CLI) | payer MEDICARE | END 2021-09-21 02:54 | disposition EMS.NT | LOC: EMS 02:53 | DX: S51.812A Laceration without foreign body of left forearm, initial encounter (principal); W18.30XA Fall on same level, unspecified, initial encounter; Y92.003 Bedroom of unspecified non-institutional (private) residence as the place of occurrence of the external cause ==

== ENCOUNTER 2021-09-24 02:44 | Outpatient (CLI) | payer MEDICARE | END 2021-09-24 02:45 | disposition left against medical advice (07) | LOC: EMS 02:44 | DX: M25.561 Pain in right knee (principal); R06.00 Dyspnea, unspecified; S81.811A Laceration without foreign body, right lower leg, initial encounter; W06.XXXA Fall from bed, initial encounter; Y92.008 Other place in unspecified non-institutional (private) residence as the place of occurrence of the external cause ==